=== PATIENT | female | born 1975 | race Caucasian/White ===

== ENCOUNTER 2020-03-17 10:46 | Outpatient (REF) | payer MEDICARE, MEDICAID, SELFPAY | END 2020-03-17 10:47 | disposition home or self-care (01) | LOC: HO.HAP 10:46 | PROVIDERS: PCP Internal Medicine; Visit Provider Internal Medicine | DX: Z46.1 Encounter for fitting and adjustment of hearing aid (principal) | CPT/HCPCS: 92593; V5266 ==

== ENCOUNTER 2020-09-02 09:26 | Outpatient (REF) | payer MEDICARE, MEDICAID, SELFPAY | END 2020-09-02 09:27 | disposition home or self-care (01) | LOC: HO.HAP 09:26 | PROVIDERS: Visit Provider Internal Medicine | DX: Z46.1 Encounter for fitting and adjustment of hearing aid (principal); H90.3 Sensorineural hearing loss, bilateral | CPT/HCPCS: 92593; 99499; V5266 ==

== ENCOUNTER 2020-09-05 09:50 | Outpatient (REF) | payer MEDICARE, MEDICAID, SELFPAY ==
--- NOTE | 2020-09-05 10:08 | MHC.AU.P13 ---
Hearing Instrument Problem Date of Visit: 09/05/20 Right Ear: Sql Database Administrator: Oticon Model: OPN 3 PP BTE Battery Size: 13 Tubing: #13 THICK Type of Mold: SHELL Left Ear: Sql Database Administrator: Oticon Model: OPN 3 PP BTE Battery Size: 13 Tubing: #13 THICK Type of Mold: SHELL Follow-Up Summary: Mother brought in hearing aids reporting right tubing too long. Trimmed right tubing and showed mother how to push up onto earhook. She will try with patient and call if any further problems. Recommendations: Recommendations: Hearing instrument follow-up or maintenance as needed. Signature: Provider: SHARA Calix
== END 2020-09-05 09:51 | disposition home or self-care (01) ==
LOC: HO.HAP 09:50
PROVIDERS: Visit Provider Internal Medicine
DX: Z13.89 Encounter for screening for other disorder (principal)

== ENCOUNTER 2020-11-15 11:53 | Outpatient (REF) | payer MEDICARE, MEDICAID, SELFPAY | END 2020-11-15 11:54 | disposition home or self-care (01) | LOC: HO.HAP 11:53 | PROVIDERS: Visit Provider Internal Medicine | DX: Z46.1 Encounter for fitting and adjustment of hearing aid (principal); H90.3 Sensorineural hearing loss, bilateral | CPT/HCPCS: 92593 ==

== ENCOUNTER 2020-11-24 14:17 | Outpatient (REF) | payer MEDICARE, MEDICAID, SELFPAY | END 2020-11-24 14:18 | disposition home or self-care (01) | LOC: HO.HAP 14:17 | PROVIDERS: Visit Provider Internal Medicine | DX: Z13.89 Encounter for screening for other disorder (principal) ==

== ENCOUNTER 2021-07-06 13:32 | Outpatient (REF) | payer MEDICARE, MEDICAID, SELFPAY | END 2021-07-06 13:33 | disposition home or self-care (01) | LOC: HO.HAP 13:32 | PROVIDERS: Visit Provider Internal Medicine | DX: Z46.1 Encounter for fitting and adjustment of hearing aid (principal); H90.3 Sensorineural hearing loss, bilateral | CPT/HCPCS: 92593 ==

== ENCOUNTER 2021-08-03 11:23 | Outpatient (REF) | payer SELFPAY | END 2021-08-03 11:24 | disposition home or self-care (01) | LOC: HO.HAP 11:23 | PROVIDERS: Visit Provider Internal Medicine | DX: Z46.1 Encounter for fitting and adjustment of hearing aid (principal); H90.3 Sensorineural hearing loss, bilateral | CPT/HCPCS: 92700 ==

== ENCOUNTER 2021-09-14 11:22 | Outpatient (REF) | payer MEDICARE, MEDICAID, SELFPAY | END 2021-09-14 11:23 | disposition home or self-care (01) | LOC: HO.HAP 11:22 | PROVIDERS: Visit Provider Internal Medicine | DX: Z46.1 Encounter for fitting and adjustment of hearing aid (principal); H90.3 Sensorineural hearing loss, bilateral | CPT/HCPCS: V5266 ==

== ENCOUNTER 2021-09-14 14:16 | Outpatient (REF) | payer SELFPAY | END 2021-09-14 14:17 | disposition home or self-care (01) | LOC: HO.HAP 14:16 | PROVIDERS: Visit Provider Internal Medicine | DX: Z46.1 Encounter for fitting and adjustment of hearing aid (principal) | CPT/HCPCS: 92700 ==

== ENCOUNTER 2021-10-26 11:12 | Outpatient (REF) | payer SELFPAY | END 2021-10-26 11:13 | disposition home or self-care (01) | LOC: HO.HAP 11:12 | PROVIDERS: Visit Provider Internal Medicine | DX: Z46.1 Encounter for fitting and adjustment of hearing aid (principal); H90.3 Sensorineural hearing loss, bilateral | CPT/HCPCS: 92700 ==

== ENCOUNTER 2021-12-07 11:21 | Outpatient (REF) | payer SELFPAY | END 2021-12-07 11:22 | disposition home or self-care (01) | LOC: HO.HAP 11:21 | PROVIDERS: Visit Provider Internal Medicine | DX: Z46.1 Encounter for fitting and adjustment of hearing aid (principal); H90.3 Sensorineural hearing loss, bilateral; H61.21 Impacted cerumen, right ear | CPT/HCPCS: 92700 ==

== ENCOUNTER 2022-01-09 11:57 | Outpatient (REF) | payer MEDICARE, MEDICAID, SELFPAY | END 2022-01-09 11:58 | disposition home or self-care (01) | LOC: HO.HAP 11:57 | PROVIDERS: Visit Provider Internal Medicine | DX: Z46.1 Encounter for fitting and adjustment of hearing aid (principal); H90.3 Sensorineural hearing loss, bilateral | CPT/HCPCS: 92593 ==

== ENCOUNTER 2022-02-06 09:51 | Outpatient (REF) | payer SELFPAY | END 2022-02-06 09:52 | disposition home or self-care (01) | LOC: HO.HAP 09:51 | PROVIDERS: Visit Provider Internal Medicine | DX: Z46.1 Encounter for fitting and adjustment of hearing aid (principal); H90.3 Sensorineural hearing loss, bilateral; H61.21 Impacted cerumen, right ear | CPT/HCPCS: 92700 ==

== ENCOUNTER 2022-02-06 10:49 | Outpatient (REF) | payer MEDICARE, MEDICAID, SELFPAY | END 2022-02-06 10:50 | disposition home or self-care (01) | LOC: HO.HAP 10:49 | PROVIDERS: Visit Provider Internal Medicine | DX: Z46.1 Encounter for fitting and adjustment of hearing aid (principal); H90.3 Sensorineural hearing loss, bilateral | CPT/HCPCS: V5014 ==

== ENCOUNTER 2022-03-23 09:50 | Outpatient (REF) | payer SELFPAY | END 2022-03-23 09:51 | disposition home or self-care (01) | LOC: HO.HAP 09:50 | PROVIDERS: Visit Provider Internal Medicine | DX: Z13.89 Encounter for screening for other disorder (principal) | CPT/HCPCS: 92593; 92700 ==

== ENCOUNTER 2022-06-08 13:56 | Outpatient (REF) | payer MEDICARE, MEDICAID, SELFPAY ==
--- NOTE | 2022-06-08 14:56 | MHC.AU.HA3 ---
Hearing Instrument Follow-Up- Binaural Date of Visit: 06/08/22 Right Ear: Make, Model, Color, Serial Number: Oticon OPN 3 PP BTE SN: [id number] Color: Terracotta Deckhand Shrimp Boat Repair Warranty: 02/08/2023 Deckhand Shrimp Boat Loss and Damage Warranty: 03/13/2021 Battery Size: 13 Earmold/Dome/CShell/SlimTip:Westone acrylic shell molds Dispensed By: [facility] Date of Fittin03/10/2019 Left Ear: Make, Model, Color, Serial Number: Oticon OPN 3 PP BTE SN: [id number] Color: Terracotta Deckhand Shrimp Boat Repair Warranty: 03/13/2021 Deckhand Shrimp Boat Loss and Damage Warranty: 03/13/2021 Battery Size: 13 Earmold/Dome/CShell/SlimTip: Westone acrylic shell molds Dispensed By: [facility] Date of Fittin03/10/2019 Follow-Up Summary: Thais recently had surgery for a pacemaker and a stent at [facility]. She was discharged last week. During her stay at the hospital, the hospital staff reportedly lost her right hearing aid and ear mold. Her left hearing aid and ear mold needed a tubing change and has excessive feedback. Cleaned left hearing aid and ear mold and replaced tubing. Ran feedback manager enterprise. Since replacement warranty has and hearing aids are less than five years old, explained the process for obtaining new hearing aids (i.e., new hearing test, medical clearance, prior approval). Thais's mother reported that she has an appointment with her PCP next week and she will request an order for the hearing test to begin the process. Recommendations: Obtain PCP order for hearing test to begin the process for new hearing aids. Diagnosis Code(s):Primary Diagnosis: H90.A21 SNHL, Unilateral Right Ear, W/Restricted Contralateral Hearing Secondary Diagnosis: H90.A32 Mixed HL, Unilateral, Left Ear, W/Restricted Contralateral Signature: Provider: Michela Kuhn, [facility]
== END 2022-06-08 13:57 | disposition home or self-care (01) ==
LOC: HO.HAP 13:56
PROVIDERS: Visit Provider Internal Medicine
DX: Z46.1 Encounter for fitting and adjustment of hearing aid (principal); H90.A21 Sensorineural hearing loss, unilateral, right ear, with restricted hearing on the contralateral side
CPT/HCPCS: 92592

== ENCOUNTER 2022-06-26 09:55 | Outpatient (REF) | payer MEDICARE, MEDICAID, SELFPAY ==
--- NOTE | 2022-06-26 12:41 | MHC.AU.MED ---
Medical Clearance for Hearing Instrumentation Date: 06/26/22 Patient Name: Thais Kincaid Date of : 1975 Primary Care Provider: Referring Provider: Mechelle Ortega MD We have seen your patient on 06/26/22 and have determined that they are a candidate for amplification (See accompanying report). Specifically, they would benefit from: Hearing aid use in both ears There is a statute that addresses Medical Evaluation Requirements prior to fitting a patient with a hearing aid. According to [place] statute 265 CMR:6.03(1), (a) General. Except as provided in 265 CMR 6.03(1)(b), a hearing aid specialist shall not sell a hearing aid unless the prospective user has presented to the hearing aid specialist a written statement signed by a licensed physician that states that the patient's hearing loss has been medically evaluated and the patient may be considered a candidate for a hearing aid. The medical evaluation must have taken place within the preceding six months. Please note: Due to the [place] Statute referenced above, we cannot accept a signature other than that of a licensed physician. BLOWER FEEDER DYED RAW STOCK and PA signatures cannot be accepted. I am in agreement with the above recommendation. There is no medical contraindication for hearing instrumentation. Physician Signature Date Physician Name (Printed)
== END 2022-06-26 09:56 | disposition home or self-care (01) ==
LOC: HO.SH 09:55
PROVIDERS: Visit Provider Internal Medicine
DX: Z01.118 Encounter for examination of ears and hearing with other abnormal findings (principal); H90.3 Sensorineural hearing loss, bilateral; H61.23 Impacted cerumen, bilateral
CPT/HCPCS: 92557; V5275

== ENCOUNTER 2022-06-26 09:59 | Outpatient (REF) | payer SELFPAY | END 2022-06-26 10:00 | disposition home or self-care (01) | LOC: HO.HAP 09:59 | PROVIDERS: Visit Provider Internal Medicine | DX: Z46.1 Encounter for fitting and adjustment of hearing aid (principal); H90.3 Sensorineural hearing loss, bilateral; H61.23 Impacted cerumen, bilateral | CPT/HCPCS: 92700 ==

== ENCOUNTER 2022-07-27 10:49 | Outpatient (REF) | payer MEDICARE, MEDICAID, SELFPAY ==
--- NOTE | 2022-07-27 12:04 | MHC.AU.HA5 ---
Hearing Instrument Fitting- Adult- Right Ear Date of Visit: 07/27/22 Hearing Instruments Dispensed: Right Ear: Make, Model, Color, Serial Number: Oticon OPN S 3 Power Plus BTE Gerry Serial #[id number] Concrete Mixer Repair Warranty: 08/16/2025 Concrete Mixer Loss and Damage Warranty: 08/16/2025 [facility] Service Plan: 07/27/2023 Battery Size: 13 Earmold/Dome/CShell/SlimTip: Microsonic acrylic shell remake warranty 01/21/2023 Summary of Fitting: Obtained prior authorization from [facility] for replacement of the right aid lost while in [facility]. The model of the hearing aid is different than the left aid as Oticon has discontinued purchase of new OPN BTEs so has to change to OPN S 3 BTE model. Ran Real Ear measurements at adaptation level #3 making adjustments to better match targets. Low frequency gain is much higher than expected and the gain int KOALA.CH software was already defaulted to 0 gain. able to match 7291-4308 Hz much better. Patient reports the sound quality seems similar to the left aid while in office. Activated volume control if needed. THE TUBING OF THE NEW RIGHT MOLD CONTINUALLY CAME OUT OF THE EARMOLD. AFTER THE SECOND TIME OCCURING, I CHANGED TO 13 TT TUBING AND PLACED THE RIGHT MOLD IN AND OUT OF THE EAR AT LEAST 10 TIMES TO MAKE SURE THE TUBING WOULD STAY SECURELY. IF THE TUBING COMES OUT AGAIN, RECOMMEND CHANGING TO A SOFT MATERIAL MOLD. If patient wants both molds to be the same material, will have to take new impression of the left ear. F/U scheduled for in August and mother will call if any problems before that time. Diagnosis Code(s): Primary Diagnosis: H90.3 Bilateral Sensorineural Hearing Loss Signature: Provider: Michela Duran, [facility]
== END 2022-07-27 10:50 | disposition home or self-care (01) ==
LOC: HO.HAP 10:49
PROVIDERS: Visit Provider Internal Medicine
DX: Z46.1 Encounter for fitting and adjustment of hearing aid (principal); H90.3 Sensorineural hearing loss, bilateral
CPT/HCPCS: V5011; V5020; V5241; V5257; V5264

== ENCOUNTER 2022-10-08 10:38 | Outpatient (REF) | payer MEDICARE, MEDICAID, SELFPAY | END 2022-10-08 10:39 | disposition home or self-care (01) | LOC: HO.HAP 10:38 | PROVIDERS: Visit Provider Internal Medicine | DX: Z13.89 Encounter for screening for other disorder (principal) ==

== ENCOUNTER 2023-01-17 11:20 | Outpatient (REF) | payer MEDICARE, MEDICAID, SELFPAY | END 2023-01-17 11:21 | disposition home or self-care (01) | LOC: HO.HAP 11:20 | PROVIDERS: Visit Provider Internal Medicine | DX: Z46.1 Encounter for fitting and adjustment of hearing aid (principal); H90.3 Sensorineural hearing loss, bilateral | CPT/HCPCS: V5266 ==

== ENCOUNTER 2023-04-19 15:33 | Outpatient (REF) | payer MEDICARE, MEDICAID, SELFPAY | END 2023-04-19 15:34 | disposition home or self-care (01) | LOC: HO.HAP 15:33 | PROVIDERS: Visit Provider Internal Medicine | DX: Z13.89 Encounter for screening for other disorder (principal) ==

== ENCOUNTER 2023-06-05 11:18 | Outpatient (REF) | payer MEDICARE, MEDICAID, SELFPAY | END 2023-06-05 11:19 | disposition home or self-care (01) | LOC: HO.HAP 11:18 | PROVIDERS: Visit Provider Internal Medicine | DX: Z13.89 Encounter for screening for other disorder (principal) ==

== ENCOUNTER 2023-08-19 13:55 | Outpatient (REF) | payer MEDICARE, MEDICAID, SELFPAY | END 2023-08-19 13:56 | disposition home or self-care (01) | LOC: HO.HAP 13:55 | PROVIDERS: Visit Provider Internal Medicine | DX: Z46.1 Encounter for fitting and adjustment of hearing aid (principal); H90.3 Sensorineural hearing loss, bilateral | CPT/HCPCS: 92593; 99499; V5266 ==

== ENCOUNTER 2023-11-21 13:51 | Outpatient (REF) | payer MEDICARE, MEDICAID, SELFPAY ==
--- NOTE | 2023-11-21 14:24 | MHC.AU.HA3 ---
Hearing Instrument Follow-Up- Binaural Date of Visit: 11/21/23 Right Ear: Make, Model, Color, Serial Number: Heidi OPNS3 BTE PP SN: [id number] Color: Terracotta Market Research Specialist Repair Warranty: 08/16/2025 Market Research Specialist Loss and Damage Warranty: 08/16/2025 [facility] Service Plan: 07/27/2023 Battery Size: 13 Earmold/Dome/CShell/SlimTip:Microsonic acrylic shell Dispensed By: [facility] Date of Fittin07/27/2023 Left Ear: Make, Model, Color, Serial Number: Heidi OPN3 BTE PP SN: [id number] Color: Terracotta Market Research Specialist Repair Warranty: 03/13/2021 Market Research Specialist Loss and Damage Warranty: 03/13/2021 [facility] Service Plan: Battery Size: 13 Earmold/Dome/CShell/SlimTip: Westone acrylic shell mold Dispensed By: [facility] Date of Fittin03/10/2019 Follow-Up Summary: Tubing hard, discolored, full of wax/debris. Cleaned both hearing aids and ear molds. Vacuumed microphones. Ran through dehumidifier. Replaced tubing. Listening check demonstrated hearing aids amplifying clearly. Thais's mother suspects a change in hearing, as she has noticed that Thais is not hearing as well on one side (unsure which) even with her hearing aids. She will request a doctor's order for an updated hearing test. Recommendations: Hearing instrument follow-up or maintenance as needed. Please contact our clinic with any questions or concerns. Diagnosis Code(s): Primary Diagnosis: H90.3 Bilateral Sensorineural Hearing Loss Signature: Provider: Michela Kuhn, [facility]
== END 2023-11-21 13:52 | disposition home or self-care (01) ==
LOC: HO.HAP 13:51
PROVIDERS: Visit Provider Internal Medicine
DX: Z46.1 Encounter for fitting and adjustment of hearing aid (principal); H90.3 Sensorineural hearing loss, bilateral
CPT/HCPCS: 92593; 99499

== ENCOUNTER 2024-01-02 12:58 | Outpatient (REF) | payer MEDICARE, MEDICAID, SELFPAY ==
--- NOTE | 2024-01-02 13:43 | MHC.AU.HA3 ---
Hearing Instrument Follow-Up- Binaural Date of Visit: 01/02/24 Right Ear: Make, Model, Color, Serial Number: Heidi OPNS3 BTE PP SN: [id number] Color: Terracotta Sql Database Administrator Repair Warranty: 08/16/2025 Sql Database Administrator Loss and Damage Warranty: 08/16/2025 [facility] Service Plan: 07/27/2023 Battery Size: 13 Earmold/Dome/CShell/SlimTip:Microsonic acrylic shell Dispensed By: [facility] Date of Fittin07/27/2023 Left Ear: Make, Model, Color, Serial Number: Heidi OPN3 BTE PP SN: [id number] Color: Terracotta Sql Database Administrator Repair Warranty: 03/13/2021 Sql Database Administrator Loss and Damage Warranty: 03/13/2021 [facility] Service Plan: Battery Size: 13 Earmold/Dome/CShell/SlimTip: Westone acrylic shell mold Dispensed By: [facility] Date of Fittin03/10/2019 Follow-Up Summary: Tubing pulled out of molds. Cleaned both hearing aids and ear molds. Vacuumed microphones. Ran through dehumidifier. Replaced tubing with small amount of cement. Hearing test scheduled in February - will start process for new hearing aids and ear molds at that time. Discussed changing to softer ear mold material to be able to use a tube lock given history of tubing getting pulled out of molds. Recommendations: Hearing instrument follow-up or maintenance as needed. Please contact our clinic with any questions or concerns. Diagnosis Code(s): Primary Diagnosis: H90.3 Bilateral Sensorineural Hearing Loss Signature: Provider: Michela Kuhn, [facility]
== END 2024-01-02 12:59 | disposition home or self-care (01) ==
LOC: HO.HAP 12:58
PROVIDERS: Visit Provider Internal Medicine
DX: Z46.1 Encounter for fitting and adjustment of hearing aid (principal); H90.3 Sensorineural hearing loss, bilateral
CPT/HCPCS: 92593; 99499

== ENCOUNTER 2024-02-20 14:23 | Outpatient (REF) | payer MEDICARE, MEDICAID, SELFPAY ==
--- NOTE | 2024-02-20 15:24 | MHC.AU.HA3 ---
Hearing Instrument Follow-Up- Binaural Date of Visit: 02/20/24 Right Ear: Make, Model, Color, Serial Number: Heidi OPNS3 BTE PP SN: [id number] Color: Terracotta Opto Mechanical Technician Repair Warranty: 08/16/2025 Opto Mechanical Technician Loss and Damage Warranty: 08/16/2025 [facility] Service Plan: 07/27/2023 Battery Size: 13 Earmold/Dome/CShell/SlimTip:Microsonic acrylic shell Dispensed By: [facility] Date of Fittin07/27/2023 Left Ear: Make, Model, Color, Serial Number: Heidi OPN3 BTE PP SN: [id number] Color: Terracotta Opto Mechanical Technician Repair Warranty: 03/13/2021 Opto Mechanical Technician Loss and Damage Warranty: 03/13/2021 [facility] Service Plan: Battery Size: 13 Earmold/Dome/CShell/SlimTip: Westone acrylic shell mold Dispensed By: [facility] Date of Fittin03/10/2019 Follow-Up Summary: Accompanied by mother. Updated hearing test - see audio. Right hearing aid reportedly weak. Tubing pulled out of molds, again. Cleaned both hearing aids and ear molds. Vacuumed microphones. Ran through dehumidifier. Replaced tubing. Listening check demonstrated hearing aids amplifying clearly. Hearing relatively stable; however, decrease noted in speech discrimination. Reprogrammed right hearing aid with noted improvement of sound quality in office. Starting process for new hearing aids and ear molds - See Hearing Aid Evaluation note. Recommendations: Hearing instrument follow-up or maintenance as needed. Please contact our clinic with any questions or concerns. Diagnosis Code(s): Primary Diagnosis: H90.3 Bilateral Sensorineural Hearing Loss Signature: Provider: Michela Kuhn, [facility]
--- NOTE | 2024-02-20 15:25 | MHC.AU.MED ---
Medical Clearance for Hearing Instrumentation Date: 02/20/24 Patient Name: Thais Kincaid Date of : 1975 Primary Care Provider: Mechelle Ortega MD We have seen your patient on 02/20/24 and have determined that they are a candidate for amplification (See accompanying report). Specifically, they would benefit from: Hearing aid use in both ears There is a statute that addresses Medical Evaluation Requirements prior to fitting a patient with a hearing aid. According to [place] statute 265 CMR:6.03(1), (a) General. Except as provided in 265 CMR 6.03(1)(b), a customer service professional shall not sell a hearing aid unless the prospective user has presented to the customer service professional a written statement signed by a licensed physician that states that the patient's hearing loss has been medically evaluated and the patient may be considered a candidate for a hearing aid. The medical evaluation must have taken place within the preceding six months. Please note: Due to the [place] Statute referenced above, we cannot accept a signature other than that of a licensed physician. GREENHOUSE INSTRUCTOR and PA signatures cannot be accepted. I am in agreement with the above recommendation. There is no medical contraindication for hearing instrumentation. Physician Signature Date Physician Name (Printed)
--- NOTE | 2024-02-20 16:06 | MHC.AU.HA1 ---
Hearing Aid Evaluation Date of Visit: 02/20/24 Historical Information: Description of Hearing: Moderate to moderately-severe sensorineural hearing loss, bilaterally Current personal amplification information: Oticon OPNS3 BTE PP, right ear; Oticon OPN3 BTE PP, left ear Summary: Accompanied by mother. Ready for new hearing aids due to age of left device. Right hearing aid purchased in 2022 after it was lost during hospital stay (could not purchase same model as left ear at that time). Will also request prior authorization for new right hearing aid as well so Thais can have same model for both ears. Will stay with same BTE style. Discussed rechargeability vs battery-powered, 312 (Real, smaller BTE portion) vs 13 (Xceed, larger BTE portion) batteries. Opted to continue with size 13 battery-powered, knowing BTE portion of hearing aid will be slightly bigger than current pair. Impressions taken, bilaterally, without incident (in hold drawer). Thais was agreeable to trying softer silicone material with tube lock to prevent tubing from always slipping out of molds as is the case with her current pair. Will need to submit prior authorization as right hearing aid not five years old. Hearing Aid Prescription: Based on the individual?s shared listening needs, communication environments, dexterity, desire for connectivity, and personal preferences, the following prescription for amplification has been made: Right ear: Make, Model, Color: Oticon Xceed 2 BTE SP Color: Silver Battery Size: 13 Type of Earmold/Dome/CShell/SlimTip: Gigi Full Shell 40 Shore Silicone Left ear: Left ear prescription to be same as Right Hearing Aid above: Make, Model, Color: Oticon Xceed 2 BTE SP Color: Silver Battery Size: 13 Type of Earmold/Dome/CShell/SlimTip: Gigi Full Shell 40 Shore Silicone Plan of Care: Patient wishes to purchase hearing aids as prescribed Action Taken/Action Needed: Prior authorization to be requested. Medical Clearance to be requested from PCP/ENT. Hearing Instrument Fitting to be scheduled when materials arrive Primary Diagnosis: H90.3 Bilateral Sensorineural Hearing Loss Signature: Provider: Michela Kuhn, [facility]
== END 2024-02-20 14:24 | disposition home or self-care (01) ==
LOC: HO.SH 14:23
PROVIDERS: Visit Provider Internal Medicine
DX: Z01.118 Encounter for examination of ears and hearing with other abnormal findings (principal); Z46.1 Encounter for fitting and adjustment of hearing aid; H90.3 Sensorineural hearing loss, bilateral
CPT/HCPCS: 92557; 92591; 92593; 99499; V5275

== ENCOUNTER 2024-03-27 13:48 | Outpatient (REF) | payer MEDICARE, MEDICAID, SELFPAY | END 2024-03-27 13:49 | disposition home or self-care (01) | LOC: HO.HAP 13:48 | PROVIDERS: Visit Provider Internal Medicine | DX: Z46.1 Encounter for fitting and adjustment of hearing aid (principal); H90.3 Sensorineural hearing loss, bilateral | CPT/HCPCS: V5011; V5020; V5160; V5261; V5264; V5266 ==

== ENCOUNTER 2024-06-22 12:58 | Outpatient (REF) | payer MEDICARE, MEDICAID, SELFPAY ==
--- OUTSIDE RECORDS SUMMARY | 2024-06-22 15:03 | XMS_ITS | Data Portability ---
Author Organization [place] - [facility], Allergy Address [address] [place] [address] Care Team Providers Care Project Controls Scheduler Name Role Phone SAMI THOMASON Primary Care Provider Assessment Encounter Date Assessment Date Assessment LastModified by Organization Details LastModified Time 11/21/2023 11/21/2023 48-year-old female with history of chronic OE, recurrent cerumen impactions, and hearing loss using amplification presents for routine ear cleaning. Cerumen impaction removed bilaterally. No evidence of infection on exam today. She will follow up in 6 weeks for routine debridement, or sooner with concerns. [email or web address] Not available 11/21/2023 11:37:29 01/02/2024 01/02/2024 48-year-old female with history of chronic OE, recurrent cerumen impactions, and hearing loss using amplification presents for routine ear cleaning. Cerumen impaction and otorrhea removed bilaterally. There is evidence of mild otitis externa on exam today. She will begin use of TobraDex 4 drops in both ears twice daily for 2 weeks (has Rx from prior infection). She will follow-up in 6 weeks for routine debridement, or sooner with any worsening symptoms. [email or web address] Not available 01/02/2024 12:55:48 02/06/2024 02/06/2024 48-year-old female with history of chronic OE, recurrent cerumen impactions, and hearing loss using amplification presents for routine ear cleaning. Cerumen impaction removed bilaterally. Infection has resolved. Resume alcohol/vinegar mixture in ears a few times per week. She will follow-up in 6 weeks for routine debridement, or sooner with any worsening symptoms. [email or web address] Not available 02/06/2024 15:55:49 03/12/2024 03/12/2024 49-year-old female with history of chronic OE, recurrent cerumen impactions, and hearing loss using amplification presents for routine ear cleaning. Cerumen impaction removed bilaterally. Both EACs with wet appearance. Recommended Tobradex x 2 weeks and then she may resume alcohol/vinegar mixture in ears a few times per week. She will follow-up in 6 weeks for routine debridement, or sooner with any worsening symptoms. [email or web address] Not available 03/12/2024 11:57:01 04/23/2024 04/23/2024 49-year-old female with history of chronic OE, recurrent cerumen impactions, and hearing loss using amplification presents for routine ear cleaning. The infection has resolved. Cerumen impaction removed bilaterally. Otologic exam is stable. She will follow-up in 6 weeks for routine debridement, or sooner with any worsening symptoms. [email or web address] Not available 04/23/2024 11:06:14 Plan of Treatment Reminders Order Date Submit Date Provider Last Modified By Organization Details Last Modified Time Details Appointments Urgent Visit Est 15 2024 03:00P M BERNICE SPEARS PA-C Not available Not available Not available Establish ed 15 2024 11:30A M BERNICE SPEARS PA-C Not available Not available Not available Establish ed 15 2024 11:15A M BERNICE SPEARS PA-C Not available Not available Not available Lab None recorded. Referral None recorded. Procedures None recorded. Surgeries None recorded. Imaging None recorded. Medication Orders TobraDex 0.3 %-0.1 % eye drops,isreal pension 2023 024 [facility] #[id number], [address] [facility], [place], [address], 03/12/2024 11:55:33 Patient TargetsNo targets recorded. Patient InstructionsNo instructions recorded. Reason for Referral None Reported. Results Created Date Observation Date Name Description Value Unit Range Abnormal Flag Note LastModifiedBy Organization Detail LastModifiedTime 02/05/20 24 12/05/2018 imagi ng/di agnos tic resul t No observ ation record ed. [email or web address] Not Available 00:58:53 02/05/20 24 12/05/2018 imagi ng/di gerardo tic resul t No observ ation record ed. [email or web address] Not Available 00:59:02 02/05/20 24 12/05/2018 audio gram No observ ation record ed. [email or web address] Not Available 01:02:47 Result Notes None recorded. Problems Name Problem SNOMED Code Status Onset Date Resolution Date Notes Provider Name and Address Organization Details Recorded Time Otorrhea of right ear 53417624624 19677 Active 2022 Otorrhea , right ear; Note: Date Diagnose d: 3 11:49 AM (H92.13) Not Available [facility] 4 02:53:46 Mixed conducti ve and sensorin eural hearing loss, bilatera l 172552627 Active 2014 Mixed hearing loss, bilatera l; Note: Date Diagnose d: 5 12:14 PM (389.22) Mixed conducti ve and sensorin eural hearing loss, bilatera l; Note: Date Diagnose d: 5 12:14 PM (H90.6) [mapped from ICD9 code: 389.22] Not Available [facility] 4 02:53:46 Sensorin eural hearing loss in right ear 42467552531 100 Active 2018 Sensorin eural hearing loss, unilater al, right ear, with restrict ed hearing on the contrala teral side; Note: Date Diagnose d: 9 4:51 PM (H90.A21 ) Not Available [facility] 4 02:53:45 Bilatera l diffuse otitis externa 98052528471 83784 Completed 201801/17/2024 Diffuse otitis externa, bilatera l; Note: Date Diagnose d: 11/20/2018 2:38 PM (H60.313 ) BERNICE SPEARS PA-C [address] [place] [address],[facility] [address], [place], [address] , [facility] - [facility] 4 15:19:29 Candidal otitis externa 20082084 Active 2014 Candidia sis: Candidal otitis externa; Note: Date Diagnose d: 5 12:14 PM (112.82) [mapped from ICD9 code: 389.22] Candid al otitis externa; Note: Date Diagnose d: 5 12:15 PM (B37.84) [mapped from ICD9 code: 112.82] Not Available [facility] 4 02:53:44 Impacted cerumen of bilatera l ears 66764104426 93499 Active 2014 Impacted cerumen, bilatera l; Note: Date Diagnose d: 5 2:31 PM (H61.23) [mapped from ICD9 code: 380.4] Not Available [facility] 4 02:53:46 Otorrhea of bilatera l ears 97033142087 49309 Completed 202101/17/2024 Otorrhea , bilatera l; Note: Date Diagnose d: 03/27/20 3:43 PM (H92.13) Not Available [facility] 4 02:53:48 Impacted cerumen 79244061 Active 2014 Impacted cerumen; CMS Risk: low risk CMS Treatmen t: new problem (to examiner ): no addition al workup planned Not Available [facility] 4 02:53:45 Impacted cerumen in left ear 80013050951 49070 Active 2019 Impacted cerumen, left ear; Note: Date Diagnose d: 11/17/2019 1:33 PM (H61.22) Not Available [facility] 4 02:53:44 Chronic mycotic otitis externa 033723130 Active 2014 Chronic mycotic otitis externa; Note: Date Diagnose d: 5 2:29 PM (380.15) Not Available [facility] 4 02:53:43 Diffuse otitis externa 08246760 Active 2019 Diffuse otitis externa, right ear; Note: Date Diagnose d: 11/17/2019 1:33 PM (H60.311 ) ; Start Date : 11/17/19 20 Diffu se otitis externa, left ear; Note: Date Diagnose d: 12/22/2019 1:58 PM (H60.312 ) Not Available [facility] 4 02:53:47 Impacted cerumen in right ear 25652293501 49466 Active 2022 Impacted cerumen, right ear; Note: Date Diagnose d: 3 1:57 PM (H61.21) Not Available [facility] 4 02:53:45 Mixed conducti ve and sensorin eural hearing loss of left ear 73153371785 107 Active 2018 Mixed conducti ve and sensorin eural hearing loss, unilater al, left ear with restrict ed hearing on the contrala teral side; Note: Date Diagnose d: 9 4:51 PM (H90.A32 ) Not Available [facility] 4 02:53:47 Bilatera l diffuse otitis externa 85340141650 83873 Active 2023 Diffuse otitis externa, bilatera l; Note: Date Diagnose d: 11/20/2018 2:38 PM (H60.313 ) BERNICE SPEARS PA-C [address] [place] [address],[address], [address] , [facility] - [facility] 4 15:19:29 Problem Notes None recorded. Procedures Surgical History Date Name Laterality Status Provider Name and Address Organization Details Recorded Time 4 Cerumen removal without microscope bilat completed BERNICE SPEARS PA-C [address] [place] [address],[address], [address], [facility] - [facility] 04/23/2024 11:04:35 4 Cerumen removal without microscope bilat completed BERNICE SPEARS PA-C [address] [place] [address],[address], [address], [facility] - [facility] 03/12/2024 11:07:32 4 Cerumen removal without microscope bilat completed BERNICE SPEARS PA-C [address] [place] [address],[address] [place], [address], [facility] - [facility] 02/06/2024 15:55:18 4 Cerumen removal without microscope bilat completed BERNICE SPEARS PA-C [address] [facility] [place],[address], [place], [address], [facility] - [facility] 01/02/2024 12:54:36 4 Cerumen removal without microscope bilat completed BERNICE SPEARS PA-C [address] [facility],[address], [place], [address], [facility] - [facility] 11/21/2023 11:16:14 Imaging Results Imaging Date Name Status LastModified by Organiz ation Details LastModified Time 12/05/2018 imaging/diagno stic result completed [email or web address] Information not available 02/05/2024 00:58:53 12/05/2018 imaging/diagno stic result completed Information not available 02/05/2024 00:59:02 12/05/2018 audiogram completed Information not available 02/05/2024 01:02:47 Procedure Notes None recorded. Medical Equipment None Reported. Allergies Allergen ID Allergen Name Allergen Category Reaction Reaction Severity Criticality Documentation Date Start Date Code Code System Note Provider Name and Address Organization Details Recorded Time [id number] penicilli n V potassium medicatio n other Not available Not available 10/29/202344247 5 RxNorm React ion: unkno wn, unspe cifie d;; Not Available [facility] 4 01:15:41 Medications Name Sig Start Date Stop Date Status Note LastModified by Organization Details LastModified Time atorvasta tin 80 mg tablet TAKE 1 TABLET BY MOUTH EVERYDAY AT BEDTIME active Not Available Not Available No t Available carvedilo l 6.25 mg tablet TAKE 1 TABLET BY MOUTH TWICE A DAY WITH MEALS active Not Available Not Available No t Available lisinopri l 20 mg tablet 09/12 completed Medicati on ID: [id number] Du ration Value: 30 Brand Name: lisinopr il Send Method: E-Prescr ibed Sub s Allowed: subs OK Speci al Instruct ion: TAKE 1 TABLET BY MOUTH EVERY DAY Medi cationGe nericNam e: lisinopr il Not Available Not Available Not Available Ciloxan 0.3 % eye drops 03/08 completed Medicati on ID: [id number] Pr escribed By Name: NUBIA Sweet nd Name: Ciloxan Send Method: E-Prescr ibed Sub s Allowed: subs OK Speci al Instruct ion: Instill 4 drops twice a day into affected ear for 7 days Med icationG enericNa me: Ciloxan Not Available Not Available Not Available spironola ctone 25 mg tablet TAKE 1 TABLET BY MOUTH EVERY DAY active Not Available Not Available No t Available carvedilo l 3.125 mg tablet PLEASE SEE ATTACHED FOR DETAILED DIRECTIO NS active Not Available Not Available No t Available levothyro xine 100 mcg tablet TAKE 1 TABLET BY MOUTH EVERY DAY active Not Available Not Available No t Available levothyro xine 88 mcg tablet 2020 active Medicati on ID: [id number] B rand Name: levothyr oxine Se nd Method: E-Prescr ibed Sub s Allowed: subs OK Medic [facility] ericName : levothyr oxine Not Available Not Available Not Available sulfaceta mide sodium 10 % eye drops 2020 active Medicati on ID: [id number] D uration Value: 14 Brand Name: sulfacet amide sodium S end Method: E-Prescr ibed Sub s Allowed: subs OK Speci al Instruct ion: 4 drops to affected ear BID x 14 days Med icationG enericNa me: sulfacet amide sodium Not Available Not Available Not Available levothyro xine 50 mcg tablet 11/19 completed Medicati on ID: [id number] Du ration Value: 30 Reason: () Brand Name: levothyr oxine Se nd Method: E-Prescr ibed Sub s Allowed: subs OK Speci al Instruct ion: TAKE 1 TABLET BY MOUTH EVERY DAY Medi cationGe nericNam e: levothyr oxine Not Available Not Available Not Available simvastat in 20 mg tablet 09/12 completed Medicati on ID: [id number] D uration Value: 30 Brand Name: simvasta tin Send Method: E-Prescr ibed Sub s Allowed: subs OK Speci al Instruct ion: TAKE 1 TABLET BY MOUTH EVERY DAY Medi cationGe nericNam e: simvasta tin Not Available Not Available Not Available erythromy bogdan 5 mg/gram (0.5 %) eye ointment APPLY TO EYELID MARGIN OF BOTH EYES AT BEDTIME FOR 1 WEEK active Not Available Not Available No t Available clotrimaz ole-betam ethasone 1 %-0.05 % topical cream Apply 1 a small amount twice a day 2022 active Medicati on ID: [id number] D uration Value: 14 Brand Name: clotrima zole-bet amethaso ne Send Method: E-Prescr ibed Sub s Allowed: subs OK Speci al Instruct ion: Apply with fingerti p to external ear BID x 2 weeks Me dication GenericN minda: clotrima zole-bet amethaso ne Not Available Not Available Not Available polymyxin B sulfate 10,000 unit-trim ethoprim 1 mg/mL eye drops INSTILL 1 DROP INTO LEFT EYE BY OPHTHALM IC ROUTE EVERY 6 HOURS FOR 7 DAYS 03/12 completed Not Available Not Available Not Available clotrimaz ole 1 % topical solution APPLY 4 DROPS INTO THE AFFECTED EAR TWICE A DAY X 2 WEEKS active Not Available Not Available No t Available tobramyci n 0.3 %-dexamet hasone 0.1 % eye drops,isreal pension INSTILL 4 DROPS INTO BOTH EARS TWICE A DAY FOR 14 DAYS active Not Available Not Available No t Available azithromy bogdan 500 mg tablet TAKE 1 TABLET BY MOUTH ONCE FOR 1 DOSE. TAKE 30-60MIN PRIOR TO DENTAL PROCEDUR E active Not Available Not Available No t Available moxifloxa bogdan 0.5 % eye drops INSTILL ONE DROP INTO THE RIGHTY EYE 3 TIMES A DAY active Not Available Not Available No t Available Ciprodex 0.3 %-0.1 % ear drops,isreal pension Apply 4 drop into both ears twice a day 2023 active Medicati on ID: [id number] D uration Value: 14 Brand Name: Ciprodex Send Method: E-Prescr ibed Sub s Allowed: subs OK Medic ationGen ericName : Ciprodex Not Available Not Available Not Available Brilinta 90 mg tablet TAKE 1 TABLET BY MOUTH TWICE A DAY active Not Available Not Available No t Available Farxiga 10 mg tablet TAKE 1 TABLET BY MOUTH EVERY DAY active Not Available Not Available No t Available Entresto 97 mg-103 mg tablet TAKE 1 TABLET BY MOUTH TWICE A DAY active Not Available Not Available No t Available Entresto 24 mg-26 mg tablet TAKE 1 TABLET BY MOUTH TWICE A DAY active Not Available Not Available No t Available Vitals Date Recorded Body height Body mass index (BMI) Body weight Provider Name and Address Organization Details Last Updated DateTime 01/02/2024 144.78 cm 27 kg/m2 95933.05 g Emily Mendoza [facility] 01/02/2024 11:08:50 Date Recorded Body height Body mass index (BMI) Body weight Provider Name and Address Organization Details Last Updated DateTime 02/06/2024 144.78 cm 27 kg/m2 13706.05 g Emily Mendoza [facility] 02/06/2024 15:07:39 Date Recorded Body height Body mass index (BMI) Body weight Provider Name and Address Organization Details Last Updated DateTime 03/12/2024 144.78 cm 27 kg/m2 25590.05 g Terrance Dennis [facility] 03/12/2024 11:28:56 Date Recorded Body height Body mass index (BMI) Body weight Provider Name and Address Organization Details Last Updated DateTime 11/21/2023 144.78 cm 27 kg/m2 00525.05 g Raina Gutierres [facility] 11/21/2023 11:43:44 Social History None recorded. Functional Status None recorded. Mental Status None recorded. Family History Nothing Reported. Medical History No medical history recorded. Gynecological HistoryNo gynecological history recorded. Obstetrics History GPAL:G 0 P 0 0 0 0 Past Encounters Encounter ID Performer Location Encounter Start Date Encounter Closed Date Diagnosis/Indication Diagnosis SNOMED-CT Code Diagnosis ICD10 Code Diagnosis Note [id number] MIRI CONTRERAS MD [facility] [address] [address] 11/21/2023 11:07:48 11/21/2023 11:40:06 Impacted cerumen of bilateral ears 5711249224 499073 H61.23 [id number] MIRI CONTRERAS MD [facility] [place] [address] [place] [address] 01/02/2024 11:03:40 01/02/2024 11:36:55 Bilateral diffuse otitis externa 4197172029 963241 H60.313 Impacted c erumen of bilateral ears 1441935425 329109 H61.23 [id number] JAKE GRANADOS MD [facility] [address] [address] 02/06/2024 14:53:34 02/06/2024 15:32:25 Bilateral diffuse otitis externa 0619082977 785704 H60.313 Impacted c erumen of bilateral ears 4602167250 204531 H61.23 [id number] MANINDER JAY MD [facility] [address] [address] 03/12/2024 11:06:52 03/12/2024 11:56:11 Impacted cerumen of bilateral ears 0742157003 266063 H61.23 Bilateral diffuse otitis externa 2506330371 863839 H60.313 [id number] MIRI CONTRERAS MD [facility] [address] [address] 04/23/2024 10:17:05 04/23/2024 10:54:32 Impacted cerumen of bilateral ears 0973855685 013614 H61.23 Health Concerns Section Related Observation LastModified by Organization Detai ls LastModified Time None Recorded Concern Status LastModified by Organization Details LastModified Time None Recorded Advance Directives Directive None Recorded Payers Encounter Date Sequence Insurance Name Policy Number Policy Martinez Covered Member ID Martinez Member ID Guarantor Name 11/21/2023 2 [place] [facility] Thais Kincaid [id number] Thais Kincaid 11/21/2023 1 [place] [employer] Thais Kincaid [id number] Thais Kincaid 01/02/2024 2 [place] [facility] Thais Kincaid [id number] Thais Kincaid 01/02/2024 1 [place] [employer] Thais Kincaid [id number] Thais Kincaid 02/06/2024 2 [place] Thais Silva Mortell [id number] Thais Silva Mortell 02/06/2024 1 [place] [employer] Thais Silva Mortell [id number] Thais Silva Mortell 03/12/2024 2 [place] Thais Maddenell [id number] Thais Silva Mortell 03/12/2024 1 [place] [employer] Thais Maddenell [id number] Thais Silva Mortell 04/23/2024 2 [place] Thais Maddenell [id number] Thais Silva Mortell 04/23/2024 1 [place] [employer] Thais Maddenell [id number] Thais Maddenell Notes Date Note Type Note Provider Name and Address Organization Details Recorded Time 11/21/2023 text/html 48-year-old fema le with history of chronic OE, recurrent cerumen impactions, and hearing loss using amplification presents for routine ear cleaning. No concerns today. Accompanied by mom. Using vinegar in the ears. MIRI CONTRERAS MD [address] [place] [address], [phone], [facility] - [facility] 11/21/2023 20:20:08 01/02/2024 text/html 48-year-old fema le with history of chronic OE, recurrent cerumen impactions, and hearing loss using amplification presents for routine ear cleaning. Reports moisture and yellow drainage of the ears, R>L. No otalgia. Accompanied by mom. MIRI CONTRERAS MD [address] [place] [address], [address], [facility] - [facility] 01/03/2024 07:34:54 02/06/2024 text/html 48-year-old fema le with history of chronic OE, recurrent cerumen impactions, and hearing loss using amplification presents for routine ear cleaning. Used Tobradex. Denies otalgia and otorrhea. Accompanied by mom. JAKE GRANADOS MD [address] [place] [address],[address], [address], [place] - [facility] 02/06/2024 16:53:26 03/12/2024 text/html 49-year-old fema le with history of chronic OE, recurrent cerumen impactions, and hearing loss using amplification presents for routine ear cleaning. Denies otalgia and otorrhea. Accompanied by mom. MANINDER JAY MD [address] [place] [address],[address], [address], [facility] - [facility] 03/12/2024 12:06:04 04/23/2024 text/html 49-year-old fema le with history of chronic OE, recurrent cerumen impactions, and hearing loss using amplification presents for routine ear cleaning. Used Tobradex as recommended at previous visit. Denies otalgia and otorrhea. Accompanied by mom. MIRI CONTRERAS MD [address] [place] [address],[address], [address], [facility] 04/24/2024 13:30:32 OBGyn Episode No OBEpisode recorded.
--- OUTSIDE RECORDS SUMMARY | 2024-06-22 15:04 | XMS_ITS | Clinical Summary ---
Author Organization Unknown Care Team Providers Care Brewer Helper Name Role Phone AUSTIN BRISCOE, KATI Unavailable Unavailable JOHN PT, JAKE Unavailable Unavailable MAU VIRTUAL RECRUITER, CHINO Unavailable Unavailable Payers Payer Name Policy Type Policy Number Effective Date Expira tion Date MEDICARE.NGS.PDGM [id number] Problems Condition Name Condition Details Condition Category Status Onset Date Resolution Date Last Treatment Date Treating Clinician Comments AFTERCARE FOLLOWING JOINT REPLACEMENT SURGERY Active 2023-06 00:00: 00 PRESENCE OF LEFT ARTIFICIAL HIP JOINT Active 2023-06 00:00: 00 HYPERTENSIVE HEART DISEASE WITH HEART FAILURE Active 2023-06 00:00: 00 HEART FAILURE, UNSPECIFIED Active 2023-06 00:00: 00 ATHSCL HEART DISEASE OF [place] CORONARY ARTERY W/O ANG PCTRS Active 2023-06 00:00: 00 OBESITY, UNSPECIFIED Active 2023-06 00:00: 00 HYPOTHYROIDI SM, UNSPECIFIED Active 2023-06 00:00: 00 HYPERLIPIDEM IA, UNSPECIFIED Active 2023-06 00:00: 00 UNSPECIFIED HEARING LOSS, UNSPECIFIED EAR Active 2023-06 00:00: 00 PRESENCE OF CORONARY ANGIOPLASTY IMPLANT AND GRAFT Active 2023-06 00:00: 00 PRESENCE OF CARDIAC PACEMAKER Active 2023-06 00:00: 00 RESIDENTIAL (CURRENT) USE OF ASPIRIN Active 2023-06 00:00: 00 BODY MASS INDEX [BMI] 27.0-27.9, ADULT Active 2023-06 00:00: 00 RESIDENTIAL (CURRENT) USE OF ORAL HYPOGLYCEMIC DRUGS Active 06-17 00:00: 00 Allergies, Adverse Reactions, Alerts Allergy Name Allergy Type Status Severity Reaction(s) Onset Date Inactive Date Treating Clinician Comments PENICILLINS Propensity to adverse reactions Active 2023-06 11:53: 54 Medications Ordered Medication Name Filled Medication Name Start Date Stop Date Current Medication? Ordering Clinician Indication Dosage Frequency Signature (SIG) Comments Components oxycodone 5 mg tablet 2023-06 00:00: 00 Yes [id number] PAIN 1 tablet EVERY 8 HOURS 1 tablet EVERY 8 HOURS (route: oral) Med Classific ation: Analgesic , Anti-infl ammatory or Antipyret ic tramadol 50 mg tablet 2023-06 00:00: 00 Yes [id number] PAIN 1-2 tablet EVERY 8 HOURS 1-2 tablet EVERY 8 HOURS (route: oral) Med Classific ation: Analgesic , Anti-infl ammatory or Antipyret ic Entresto 24 mg-26 mg tablet 2023-06 00:00: 00 Yes [id number] HTN Per instruc tions TWICE A DAY Per instructio ns TWICE A DAY (route: oral) Med Classific ation: Cardiovas cular Therapy Agents spironolact one 25 mg tablet 2023-06 00:00: 00 Yes [id number] HEART FAILURE Per instruc tions EVERY DAY Per instructio ns EVERY DAY (route: oral) Med Classific ation: Cardiovas cular Therapy Agents acetaminoph en 500 mg tablet 2023-06 00:00: 00 Yes [id number] PAIN 2 tablet 3 TIMES DAILY 2 tablet 3 TIMES DAILY (route: oral) Med Classific ation: Analgesic , Anti-infl ammatory or Antipyret ic aspirin 81 mg tablet,clifton yed release 2023-06 00:00: 00 Yes [id number] DVT PROPHYLAXIS 2 tablet 2 TIMES DAILY 2 tablet 2 TIMES DAILY (route: oral) Med Classific ation: Hematolog ical Agents atorvastati n 80 mg tablet 2023-06 00:00: 00 Yes [id number] CHOLESTEROL 1 tablet DAILY 1 tablet DAILY (route: oral) Med Classific ation: Cardiovas cular Therapy Agents carvedilol 6.25 mg tablet 2023-06 00:00: 00 Yes [id number] HTN 1 tablet 2 TIMES DAILY 1 tablet 2 TIMES DAILY (route: oral) Med Classific ation: Cardiovas cular Therapy Agents Farxiga 10 mg tablet 2023-06 00:00: 00 Yes [id number] WEIGHT LOSS 1 tablet DAILY 1 tablet DAILY (route: oral) Med Classific ation: Endocrine levothyroxi ne 100 mcg capsule 2023-06 00:00: 00 Yes [id number] THYROID 1 capsule DAILY 1 capsule DAILY (route: oral) Med Classific ation: Endocrine Miralax 17 gram oral powder packet 2023-06 00:00: 00 Yes [id number] CONSTIPATIO N 1 packet DAILY 1 packet DAILY (route: oral) Med Classific ation: Gastroint estinal Therapy Agents naproxen 500 mg tablet 2023-06 00:00: 00 Yes [id number] pain 1 tablet 2 TIMES DAILY 1 tablet 2 TIMES DAILY (route: oral) Med Classific ation: Analgesic , Anti-infl ammatory or Antipyret ic Vital Signs Vital Name Observation Time Observation Value Commen ts Temperature 2024-06-19 13:16:00.000 97.9 [degF] Temperature 2024-06-02 15:05:00.000 97.5 [degF] Temperature 2024-05-27 14:27:00.000 97.9 [degF] Temperature 2024-05-19 11:46:00.000 98.1 [degF] Temperature 2024-05-08 12:56:00.000 98.1 [degF] Temperature 2024-05-04 11:06:00.000 97.6 [degF] BMI (%) 2024-05-04 11:06:00.000 27 kg/m2 Height 2024-05-04 11:06:00.000 57 [in_us] Pulse 2024-06-19 13:16:00.000 64 /min Pulse 2024-06-02 15:05:00.000 62 /min Pulse 2024-05-27 14:27:00.000 68 /min Pulse 2024-05-19 11:46:00.000 64 /min Pulse 2024-05-08 12:56:00.000 74 /min Pulse 2024-05-04 11:06:00.000 66 /min O2 Saturation (%) 2024-06-19 13:16:00.000 96 % O2 Saturation (%) 2024-06-02 15:05:00.000 98 % O2 Saturation (%) 2024-05-27 14:27:00.000 96 % O2 Saturation (%) 2024-05-19 11:46:00.000 97 % O2 Saturation (%) 2024-05-08 12:56:00.000 98 % O2 Saturation (%) 2024-05-04 11:06:00.000 97 % Respirations 2024-06-19 13:16:00.000 16 /min Respirations 2024-06-02 15:05:00.000 16 /min Respirations 2024-05-27 14:27:00.000 16 /min Respirations 2024-05-19 11:46:00.000 16 /min Respirations 2024-05-08 12:56:00.000 16 /min Respirations 2024-05-04 11:06:00.000 16 /min Weight (lbs) 2024-06-02 15:07:00.000 123.9 [lb_av] Weight (lbs) 2024-05-27 14:35:00.000 117 [lb_av] Weight (lbs) 2024-05-04 11:06:00.000 127 [lb_av] Systolic Blood Pressure 2024-06-19 13:16:00.000 124 mm [Hg] Systolic Blood Pressure 2024-06-02 15:05:00.000 100 mm [Hg] Systolic Blood Pressure 2024-05-27 14:27:00.000 102 mm [Hg] Systolic Blood Pressure 2024-05-19 11:46:00.000 126 mm [Hg] Systolic Blood Pressure 2024-05-08 12:56:00.000 110 mm [Hg] Systolic Blood Pressure 2024-05-04 11:06:00.000 86 mm[ Hg] Diastolic Blood Pressure 2024-06-19 13:16:00.000 66 mm [Hg] Diastolic Blood Pressure 2024-06-02 15:05:00.000 62 mm [Hg] Diastolic Blood Pressure 2024-05-27 14:27:00.000 64 mm [Hg] Diastolic Blood Pressure 2024-05-19 11:46:00.000 72 mm [Hg] Diastolic Blood Pressure 2024-05-08 12:56:00.000 72 mm [Hg] Diastolic Blood Pressure 2024-05-04 11:06:00.000 50 mm [Hg] Plan of Treatment Planned Activity Planned Date Details Comments Future Scheduled Test PT/VIRTUAL RECRUITER TO PROVIDE GAIT TRAINING FOR IMPROVED MOBILITY AND /OR TO NORMALIZE GAIT PATTERN [code = PT/VIRTUAL RECRUITER TO PROVIDE GAIT TRAINING FOR IMPROVED MOBILITY AND /OR TO NORMALIZE GAIT PATTERN] Future Scheduled Test THERAPEUTI C EXERCISES AND ESTABLISHING A HOME EXERCISE PROGRAM (PT/VIRTUAL RECRUITER) [code = THERAPEUTIC EXERCISES AND ESTABLISHING A HOME EXERCISE PROGRAM (PT/VIRTUAL RECRUITER)] Future Scheduled Test PT/VIRTUAL RECRUITER TO IDENTIFY FALL RISK FACTORS; EDUCATE THE PATIENT/CAREGIVER ON WAYS TO REDUCE FALL RISK FACTORS AND ESTABLISH HOME EXERCISE PROGRAM TO MINIMIZE FALL RISK. MAY TEACH THE PATIENT FLOOR RECOVERY WHEN CLINICALLY APPROPRIATE [code = PT/VIRTUAL RECRUITER TO IDENTIFY FALL RISK FACTORS; EDUCATE THE PATIENT/CAREGIVER ON WAYS TO REDUCE FALL RISK FACTORS AND ESTABLISH HOME EXERCISE PROGRAM TO MINIMIZE FALL RISK. MAY TEACH THE PATIENT FLOOR RECOVERY WHEN CLINICALLY APPROPRIATE] Future Scheduled Test PT/VIRTUAL RECRUITER TO PROVIDE STAIR TRAINING [code = PT/VIRTUAL RECRUITER TO PROVIDE STAIR TRAINING] Future Scheduled Test BED TRANSF ERS (PT/VIRTUAL RECRUITER) [code = BED TRANSFERS (PT/VIRTUAL RECRUITER)] Future Scheduled Test SIT TO/FRO M STAND TRANSFERS (PT/VIRTUAL RECRUITER) [code = SIT TO/FROM STAND TRANSFERS (PT/VIRTUAL RECRUITER)] Future Scheduled Test CHAIR LYLE SFERS (PT/VIRTUAL RECRUITER) [code = CHAIR TRANSFERS (PT/VIRTUAL RECRUITER)] Future Scheduled Test PT / VIRTUAL RECRUITER M AY EDUCATE ON PAIN MANAGEMENT CLINICALLY INDICATED, INCLUDING NON-PHARMACOLOGICAL PAIN REDUCTION TECHNIQUES [code = PT / VIRTUAL RECRUITER MAY EDUCATE ON PAIN MANAGEMENT CLINICALLY INDICATED, INCLUDING NON-PHARMACOLOGICAL PAIN REDUCTION TECHNIQUES ] Future Scheduled Test AGENCY MAY PERFORM A RESUMPTION OF CARE VISIT FOLLOWING ANY HOSPITAL ADMISSION. PT TO EVALUATE, OBSERVE / ASSESS, AND MONITOR, VIRTUAL RECRUITER TO OBSERVE AND MONITOR, PROVIDE SKILLED THERAPEUTIC INTERVENTION, ACTIVITY, EDUCATION, AND TRAINING TO ADDRESS; [code = AGENCY MAY PERFORM A RESUMPTION OF CARE VISIT FOLLOWING ANY HOSPITAL ADMISSION. PT TO EVALUATE, OBSERVE / ASSESS, AND MONITOR, VIRTUAL RECRUITER TO OBSERVE AND MONITOR, PROVIDE SKILLED THERAPEUTIC INTERVENTION, ACTIVITY, EDUCATION, AND TRAINING TO ADDRESS;] Future Scheduled Test NEUROMUSCU LAR RE-EDUCATION / BALANCE / POSTURAL CONTROL (PT) [code = NEUROMUSCULAR RE-EDUCATION / BALANCE / POSTURAL CONTROL (PT)] Future Scheduled Test PT / VIRTUAL RECRUITER T O EDUCATE ON HIP REPLACEMENT SELF-MANAGEMENT [code = PT / VIRTUAL RECRUITER TO EDUCATE ON HIP REPLACEMENT SELF-MANAGEMENT] Future Scheduled Test PT TO ASSE SS / VIRTUAL RECRUITER TO MONITOR FOR HEART FAILURE EXACERBATION AND RECORD PATIENT REPORTED WEIGHT, AND NOTIFY THE PHYSICIAN AND/OR THE RN CLINICAL AIR POLLUTION SPECIALIST FOR PHYSICIAN NOTIFICATION OF HF EXACERBATION (2LB WEIGHT GAIN IN 1 DAY, 5LBS IN A WEEK OR 5 LBS OVER BASELINE; INCREASED SOB, EDEMA, NEEDING MORE PILLOWS AT NIGHT, CRACKLES IN BASIS OF THE LUNGS OR PMI SHIFT) [code = PT TO ASSESS / VIRTUAL RECRUITER TO MONITOR FOR HEART FAILURE EXACERBATION AND RECORD PATIENT REPORTED WEIGHT, AND NOTIFY THE PHYSICIAN AND/OR THE RN CLINICAL AIR POLLUTION SPECIALIST FOR PHYSICIAN NOTIFICATION OF HF EXACERBATION (2LB WEIGHT GAIN IN 1 DAY, 5LBS IN A WEEK OR 5 LBS OVER BASELINE; INCREASED SOB, EDEMA, NEEDING MORE PILLOWS AT NIGHT, CRACKLES IN BASIS OF THE LUNGS OR PMI SHIFT)] Future Scheduled Test PT / VIRTUAL RECRUITER T O OBSERVE WOUND/INCISION AND/OR INTACT DRESSING ON L HIP AND REPORT EARLY SIGNS AND SYMPTOMS OF WOUND DETERIORATION, COMPLICATIONS, OR INFECTION TO PHYSICIAN AND/OR THE RN CLINICAL AIR POLLUTION SPECIALIST FOR PHYSICIAN NOTIFICATION. DRESSING TO BE REMOVED BY CAREGIVER POST OP DAY 7. [code = PT / VIRTUAL RECRUITER TO OBSERVE WOUND/INCISION AND/OR INTACT DRESSING ON L HIP AND REPORT EARLY SIGNS AND SYMPTOMS OF WOUND DETERIORATION, COMPLICATIONS, OR INFECTION TO PHYSICIAN AND/OR THE RN CLINICAL AIR POLLUTION SPECIALIST FOR PHYSICIAN NOTIFICATION. DRESSING TO BE REMOVED BY CAREGIVER POST OP DAY 7.] Goal Patient Goal - WALK BETTER. Goal Provider Goal - PT LTG: PATIENT WILL DEMONSTRATE IMPROVED AMBULATION FROM MIN A TO INDEPENDENT WITHIN 9 WEEKS PT LTG: PATIENT WILL DEMONSTRATE IMPROVE STAIR SKILLS FROM MINIMAL ASSISTANCE TO INDEPENDENT WITHIN 9 WEEKS TO ALLOW PATIENT TO GET TO AND FROM CAR INDEPENDENTLY. PT LTG: PATIENT WILL DEMONSTRATE REDUCED FALL RISK EVIDENCED BY IMPROVED SELF- SELECTED WALKING SPEED (SSWS CUT SCORE 0.6 TO 0.9 INDICATES MODERATE FALL RISK, 0.6 M/S INDICATES HIGH FALL RISK) FROM MIN A TO 0.8 WITHIN 9 WEEKS. PT LTG: PATIENT WILL DEMONSTRATE REDUCED FALL RISK EVIDENCED BY TUG TEST (CUT SCORE >11 SECONDS INDICATES INCREASED FALL RISK) IMPROVING FROM MIN A TO 15 WITHIN 9 WEEKS. PT LTG: PATIENT WILL DEMONSTRATE IMPROVED FUNCTIONAL STRENGTH EVIDENCED BY FIVE TIMES SIT TO STAND TEST (CUT SCORE >12 SECONDS INDICATES AN INCREASED FALL RISK) IMPROVING FROM MIN A TO 15 WITHIN 9 WEEKS. PT LTG: PATIENT WILL DEMONSTRATE INCREASED STRENGTH OF LLE FROM 3-/5 TO 4/5 WITHIN 9 WEEKS IN ORDER TO RETURN TO INDEPENDENT TRANSFER AND AMBULATION SKILLS. PT STG: PATIENT WILL DEMONSTRATE IMPROVED ABILITY TO PERFORM SIT TO/FROM STAND TRANSFERS TO REDUCE THE RISK OF SKIN BREAKDOWN AND REDUCE FALL RISK FROM MIN A TO INDEPENDENT WITHIN 4 WEEKS. PT STG: PATIENT WILL DEMONSTRATE IMPROVED ABILITY TO PERFORM CHAIR TRANSFERS TO REDUCE THE RISK OF SKIN BREAKDOWN AND FALL RISK FROM MIN A TO INDEPENDENT WITHIN 4 WEEKS. Goal Provider Goal - Goal Provider Goal - PT LTG: PATIENT/CAREGIVER WILL DEMONSTRATE ADHERENCE TO FALL REDUCTION SELF-MANAGEMENT AND REDUCING FALL RISK FACTORS TO MINIMIZE FALL RISK BY END OF EPISODE. PT LTG: PATIENT WILL BE INDEPENDENT WITH IMPLEMENTATION OF HEP WITHIN 5 WEEKS. PT LTG: CAREGIVER WILL BE INDEPENDENT ASSISTING PATIENT TO COMPLETE HEP WITHIN 5 WEEKS. Goal Provider Goal - Goal Provider Goal - PT STG: PATIENT WILL DEMONSTRATE IMPROVED ABILITY TO PERFORM BED TRANSFERS IN ORDER TO REDUCE RISK OF SKIN BREAKDOWN FROM MIN A TO INDEPENDENT WITHIN 3 WEEKS. Goal Provider Goal - Goal Provider Goal - Goal Provider Goal - PT GOAL: PATIENT WILL DEMONSTRATE UNDERSTANDING OF PAIN MANAGEMENT TECHNIQUES EVIDENCED BY REDUCED PAIN Goal Provider Goal - Goal Provider Goal - Goal Provider Goal - PT GOAL: PATIENT WILL DEMONSTRATE OPTIMAL OUTCOMES INCLUDING INCREASED ROM AND STRENGTH WITH NO COMPLICATIONS FOLLOWING HIP SURGERY BY END OF EPISODE. Goal Provider Goal - PT GOAL: PATIENTS HEART FAILURE WILL REMAIN WELL CONTROLLED THROUGHOUT EPISODE OF CARE. Goal Provider Goal - PT GOAL: THE PATIENT WILL NOT DEMONSTRATE ANY WOUND COMPLICATIONS DURING THE EPISODE OF CARE. Encounters Start Date/Time End Date/Time Encounter Type Admission Type Attending [facility] Care Department Encounter ID Discharge Date Discharge Status Discharge Condition Discharge Reason Percent Goals Met 2024-05-04 00:00:00 2024-07-02 00:00:00 Outpatient NEW ADMISSION JAKE LOPEZ [facility] [id number] 29.41
--- OUTSIDE RECORDS SUMMARY | 2024-06-22 15:04 | XMS_ITS | Continuity of Care Document ---
Author Organization [place] - [facility], [facility] Address [address] [place] [address] Care Team Providers Care Communications Professional Name Role Phone KATELINSAMI Primary Care Provider Assessment Encounter Date Assessment Date Assessment LastModified by Organization Details LastModified Time 04/23/2024 04/23/2024 49-year-old female with history of chronic OE, recurrent cerumen impactions, and hearing loss using amplification presents for routine ear cleaning. The infection has resolved. Cerumen impaction removed bilaterally. Otologic exam is stable. She will follow-up in 6 weeks for routine debridement, or sooner with any worsening symptoms. [email or web address] Not available 04/23/2024 11:06:14 Plan of Treatment [...] None recorded. Imaging None recorded. Medication Orders None recorded. Patient TargetsNo targets recorded. Patient InstructionsNo instructions recorded. Reason for Referral None Reported. Problems Name Problem SNOMED Code Status Onset Date Resolution Date Notes Provider Name and Address Organization Details Recorded Time Otorrhea of right ear [id number] 70643 Active 2022 Otorrhea , right ear; Note: Date Diagnose d: 5/11/202 3 11:49 AM (H92.13) Not Available [facility] 4 02:53:46 Mixed conducti ve and sensorin eural hearing loss, bilatera l 446288158 Active 2014 Mixed hearing loss, bilatera l; Note: Date Diagnose d: 5 12:14 PM (389.22) Mixed conducti ve and sensorin eural hearing loss, bilatera l; Note: Date Diagnose d: 5 12:14 PM (H90.6) [mapped from ICD9 code: 389.22] Not Available [facility] 4 02:53:46 Sensorin eural hearing loss in right ear 94791371393 100 Active 2018 Sensorin eural hearing loss, unilater al, right ear, with restrict ed hearing on the contrala teral side; Note: Date Diagnose d: 9 4:51 PM (H90.A21 ) Not Available [facility] 4 02:53:45 Bilatera l diffuse otitis externa 65958988901 04103 Completed 201801/17/2024 Diffuse otitis externa, bilatera l; Note: Date Diagnose d: 11/20/2018 2:38 PM (H60.313 ) BERNICE SPEARS PA-C [address] [place] [address], [place], [address] , [facility] - [facility] 4 15:19:29 Candidal otitis externa 29097826 Active 2014 Candidia sis: Candidal otitis externa; Note: Date Diagnose d: 5 12:14 PM (112.82) [mapped from ICD9 code: 389.22] Candid al otitis externa; Note: Date Diagnose d: 5 12:15 PM (B37.84) [mapped from ICD9 code: 112.82] Not Available [facility] 4 02:53:44 Impacted cerumen of bilatera l ears 67619143239 43438 Active 2014 Impacted cerumen, bilatera l; Note: Date Diagnose d: 5 2:31 PM (H61.23) [mapped from ICD9 code: 380.4] Not Available [facility] 4 02:53:46 Otorrhea of bilatera l ears 06163013938 48026 Completed 202101/17/2024 Otorrhea , bilatera l; Note: Date Diagnose d: 03/27/20 22 3:43 PM (H92.13) Not Available [facility] 4 02:53:48 Impacted cerumen 14293997 Active 2014 Impacted cerumen; CMS Risk: low risk CMS Treatmen t: new problem (to examiner ): no addition al workup planned Not Available [facility] 4 02:53:45 Impacted cerumen in left ear 89259722802 51608 Active 2019 Impacted cerumen, left ear; Note: Date Diagnose d: 11/17/2019 1:33 PM (H61.22) Not Available [facility] 4 02:53:44 Chronic mycotic otitis externa 377075463 Active 2014 Chronic mycotic otitis externa; Note: Date Diagnose d: 5 2:29 PM (380.15) Not Available [facility] 4 02:53:43 Diffuse otitis externa 02856766 Active 2019 Diffuse otitis externa, right ear; Note: Date Diagnose d: 11/17/2019 1:33 PM (H60.311 ) ; Start Date : 11/17/19 20 Diffu se otitis externa, left ear; Note: Date Diagnose d: 12/22/2019 1:58 PM (H60.312 ) Not Available [facility] 4 02:53:47 Impacted cerumen in right ear 29786522937 67765 Active 2022 Impacted cerumen, right ear; Note: Date Diagnose d: 3 1:57 PM (H61.21) Not Available [facility] 4 02:53:45 Mixed conducti ve and sensorin eural hearing loss of left ear 75378677209 107 Active 2018 Mixed conducti ve and sensorin eural hearing loss, unilater al, left ear with restrict ed hearing on the contrala teral side; Note: Date Diagnose d: 9 4:51 PM (H90.A32 ) Not Available [facility] 4 02:53:47 Bilatera l diffuse otitis externa 65278630097 31480 Active 2023 Diffuse otitis externa, bilatera l; Note: Date Diagnose d: 11/20/2018 2:38 PM (H60.313 ) BERNICE SPEARS PA-C [address] [facility],[address], [address] , [facility] - [facility] 4 15:19:29 Problem Notes None recorded. Procedures Surgical History Date Name Laterality Status Provider Name and Address Organization Details Recorded Time 4 Cerumen removal without microscope bilat completed BERNICE SPEARS PA-C [address] [facility],[address], [address], [facility] - [facility] 04/23/2024 11:04:35 4 Cerumen removal without microscope bilat completed BERNICE SPEARS PA-C [address] [facility],[address], [address], [facility] - [facility] 03/12/2024 11:07:32 4 Cerumen removal without microscope bilat completed BERNICE SPEARS PA-C [address] [facility],[address], [address], [facility] - [facility] 02/06/2024 15:55:18 4 Cerumen removal without microscope bilat completed BERNICE SPEARS PA-C [address] [facility],SEGUNDO [address] [place] [address], [address], [facility] - [facility] 01/02/2024 12:54:36 4 Cerumen removal without microscope bilat completed BERNICE SPEARS PA-C [address] [facility],[address], [address], [facility] - [facility] 11/21/2023 11:16:14 Imaging Results None recorded. Procedure Notes None recorded. Medical Equipment None Reported. Allergies Allergen ID Allergen Name Allergen Category Reaction Reaction Severity Criticality Documentation Date Start Date Code Code System Note Provider Name and Address Organization Details Recorded Time [id number] penicilli n V potassium medicatio n other Not available Not available 10/29/2023 5 RxNorm React ion: unkno wn, unspe cifie d;; Not Available [facility] 4 01:15:41 Medications Name Sig Start Date [...] mg tablet 09/12 completed Medicati on ID: [id number] Du ration Value: 30 Brand Name: lisinopr il Send Method: E-Prescr ibed Sub s Allowed: subs OK Speci al Instruct ion: TAKE 1 TABLET BY MOUTH EVERY DAY Medi cationGe nericNam e: lisinopr il Not Available Not Available Not Available Ciloxan 0.3 % eye drops 03/08 [place]: [id number] Pr escribed By Name: NUBIA Sweet nd [...] mcg tablet 2020 active Medicati on ID: [id number] B rand Name: levothyr oxine Se nd Method: E-Prescr ibed Sub s Allowed: subs OK Medic ationGen ericName : levothyr oxine Not Available Not Available Not Available sulfaceta mide sodium 10 % eye drops 2020 active Medicati on ID: [id number] D uration Value: 14 Brand Name: sulfacet amide sodium S end Method: E-Prescr ibed Sub s Allowed: subs OK Speci al Instruct ion: 4 drops to affected ear BID x 14 days Med icationG enericNa me: sulfacet amide sodium Not Available Not Available Not Available levothyro xine 50 mcg tablet 11/19 completed Medicati on ID: [id number] Du ration Value: 30 Reason: () Brand Name: levothyr oxine Se nd Method: E-Prescr ibed Sub s Allowed: subs OK Speci al Instruct ion: TAKE 1 TABLET BY MOUTH EVERY DAY Medi cationGe nericNam e: levothyr oxine Not Available Not Available Not Available simvastat in 20 mg tablet 09/12 completed Medicati on ID: [id number] D uration Value: 30 Brand Name: simvasta [...] a day 2022 active Medicati on ID: [id number] D uration Value: 14 Brand Name: clotrima [...] a day 2023 active Medicati on ID: [id number] D uration Value: 14 Brand Name: Ciprodex [...] Available Not Available No t Available Vitals None Recorded Social History None recorded. Functional Status None recorded. Mental Status None recorded. Family History Nothing Reported. Medical History No medical history recorded. Gynecological HistoryNo gynecological history recorded. Obstetrics History GPAL:G 0 P 0 0 0 0 Past Encounters Encounter ID Performer Location Encounter Start Date Encounter Closed Date Diagnosis/Indication Diagnosis SNOMED-CT Code Diagnosis ICD10 Code Diagnosis Note [id number] MIRI CONTRERAS MD [facility] [address] [place] [address] 04/23/2024 10:17:05 04/23/2024 10:54:32 Impacted cerumen of bilateral ears [id number] H61.23 Health Concerns Section Related Observation LastModified by Organization Detai ls LastModified Time None Recorded Concern Status LastModified by Organization Details LastModified Time None Recorded Payers Encounter Date Sequence Insurance Name Policy Number Policy Martinez Covered Member ID Martinez Member ID Guarantor Name 04/23/2024 2 [place] [facility] Thais Kincaid [id number] Thais Kincaid 04/23/2024 1 MEDICARE B-[place]: [facility] Thais Kincaid [id number] Thais Kincaid Notes Date Note Type Note Provider Name and Address Organization Details Recorded Time 04/23/2024 text/html 49-year-old fema le with history of chronic OE, recurrent cerumen impactions, and hearing loss using amplification presents for routine ear cleaning. Used Tobradex as recommended at previous visit. Denies otalgia and otorrhea. Accompanied by mom. MIRI CONTRERAS MD [address] [place] [address], [phone], [facility] - [facility] 04/24/2024 13:30:32 OBGyn Episode No OBEpisode recorded.
--- NOTE | 2024-06-22 16:09 | MHC.AU.HA3 ---
Hearing Instrument Follow-Up- Binaural Date of Visit: 06/22/24 Right Ear: Make, Model, Color, Serial Number: Otdaniel Xceed 2 BTE SP Color: Silver S#[id number] Secondary English Teacher Repair Warranty: 04/11/2027 Secondary English Teacher Loss and Damage Warranty: 04/11/2027 [facility] Service Plan: 03/27/25 Battery Size: 13 Property Maintenance Technician/Slim Tube: Earmold/Dome/CShell/SlimTip:Gigi Full Shell 40 Shore Silicone S#[id number] Warranty 06/18/2024 Type of Wax Guard: Dispensed By: [facility] Date of Fittin03/27/24 Left Ear: Make, Model, Color, Serial Number: Otdaniel Xceed 2 BTE SP Color: Silver S#[id number] Secondary English Teacher Repair Warranty: 04/11/2027 Secondary English Teacher Loss and Damage Warranty: 04/11/2027 [facility] Service Plan: 03/27/25 Battery Size: 13 Earmold/Dome/CShell/SlimTip: Gigi Full Shell 40 Shore Silicone S#[id number] Warranty 06/18/2024 Date of Fittin03/27/24 Follow-Up Summary: Thais is here with mother due to tube splitting. Found both tubes hard and debris in tubes. Thais reports soreness/scabbing in tragus area with the earmolds. Cleaned aids and earmolds, replaced tubing. Noted area of discomfort and modified molds accordingly. Improvement reported. Advised to return if discomfort persists as impressions would need to be taken for new earmolds. Recommendations: Recommendations: Hearing instrument follow-up or maintenance as needed. Diagnosis Code(s): Primary Diagnosis: H90.3 Bilateral Sensorineural Hearing Loss Signature: Provider: Michela Washburn, [facility]
== END 2024-06-22 12:59 | disposition home or self-care (01) ==
LOC: HO.HAP 12:58
PROVIDERS: Visit Provider Internal Medicine
DX: Z13.89 Encounter for screening for other disorder (principal)

== ENCOUNTER 2024-06-24 11:13 | Outpatient (REF) | payer MEDICARE, MEDICAID, SELFPAY ==
--- OUTSIDE RECORDS SUMMARY | 2024-06-24 11:35 | XMS_ITS | Clinical Summary ---
Author Organization Unknown Care Team Providers Care Needle Grinder Name Role Phone AUSTIN BRISCOE, KATI Unavailable Unavailable JOHN PT, JAKE Unavailable Unavailable MAU FIELD MECHANIC/SITE LEAD, CHINO Unavailable Unavailable Payers Payer Name Policy Type Policy Number Effective Date Expira tion Date MEDICARE.NGS.PDGM [id number] Problems Condition Name Condition Details Condition Category Status Onset Date Resolution Date Last Treatment Date Treating Clinician Comments AFTERCARE FOLLOWING JOINT REPLACEMENT SURGERY Active 2023-06 00:00: 00 PRESENCE OF LEFT ARTIFICIAL HIP JOINT Active 2023-06 00:00: 00 HYPERTENSIVE HEART DISEASE WITH HEART FAILURE Active 2023-06 00:00: 00 HEART FAILURE, UNSPECIFIED Active 2023-06 00:00: 00 ATHSCL HEART DISEASE OF [place] CORONARY ARTERY W/O ANG PCTRS Active 2023-06 00:00: 00 OBESITY, UNSPECIFIED Active 2023-06 00:00: 00 HYPOTHYROIDI SM, UNSPECIFIED Active 2023-06 00:00: 00 HYPERLIPIDEM IA, UNSPECIFIED Active 2023-06 00:00: 00 UNSPECIFIED HEARING LOSS, UNSPECIFIED EAR Active 2023-06 00:00: 00 PRESENCE OF CORONARY ANGIOPLASTY IMPLANT AND GRAFT Active 2023-06 00:00: 00 PRESENCE OF CARDIAC PACEMAKER Active 2023-06 00:00: 00 ALF (CURRENT) USE OF ASPIRIN Active 2023-06 00:00: 00 BODY MASS INDEX [BMI] 27.0-27.9, ADULT Active 2023-06 00:00: 00 ALF (CURRENT) USE OF ORAL HYPOGLYCEMIC DRUGS Active [...] 5 mg tablet 2023-06 00:00: 00 Yes [id number] PAIN 1 tablet EVERY 8 HOURS 1 tablet EVERY 8 HOURS (route: oral) Med Classific ation: Analgesic , Anti-infl ammatory or Antipyret ic tramadol 50 mg tablet 2023-06 00:00: 00 Yes [id number] PAIN 1-2 tablet EVERY 8 HOURS 1-2 tablet EVERY 8 HOURS (route: oral) Med Classific ation: Analgesic , Anti-infl ammatory or Antipyret ic Entresto 24 mg-26 mg tablet 2023-06 00:00: 00 Yes [id number] HTN Per instruc tions TWICE A DAY Per instructio ns TWICE A DAY (route: oral) Med Classific ation: Cardiovas cular Therapy Agents spironolact one 25 mg tablet 2023-06 00:00: 00 Yes [id number] HEART FAILURE Per instruc tions EVERY DAY Per instructio ns EVERY DAY (route: oral) Med Classific ation: Cardiovas cular Therapy Agents acetaminoph en 500 mg tablet 2023-06 00:00: 00 Yes [id number] PAIN 2 tablet 3 TIMES DAILY 2 tablet 3 TIMES DAILY (route: oral) Med Classific ation: Analgesic , Anti-infl ammatory or Antipyret ic aspirin 81 mg tablet,clifton yed release 2023-06 00:00: 00 Yes [id number] DVT PROPHYLAXIS 2 tablet 2 TIMES DAILY 2 tablet 2 TIMES DAILY (route: oral) Med Classific ation: Hematolog ical Agents atorvastati n 80 mg tablet 2023-06 00:00: 00 Yes [id number] CHOLESTEROL 1 tablet DAILY 1 tablet DAILY (route: oral) Med Classific ation: Cardiovas cular Therapy Agents carvedilol 6.25 mg tablet 2023-06 00:00: 00 Yes [id number] HTN 1 tablet 2 TIMES DAILY 1 tablet 2 TIMES DAILY (route: oral) Med Classific ation: Cardiovas cular Therapy Agents Farxiga 10 mg tablet 2023-06 00:00: 00 Yes [id number] WEIGHT LOSS 1 tablet DAILY 1 tablet DAILY (route: oral) Med Classific ation: Endocrine levothyroxi ne 100 mcg capsule 2023-06 00:00: 00 Yes [id number] THYROID 1 capsule DAILY 1 capsule DAILY (route: oral) Med Classific ation: Endocrine Miralax 17 gram oral powder packet 2023-06 00:00: 00 Yes [id number] CONSTIPATIO N 1 packet DAILY 1 packet DAILY (route: oral) Med Classific ation: Gastroint estinal Therapy Agents naproxen 500 mg tablet 2023-06 00:00: 00 Yes [id number] pain 1 tablet 2 TIMES DAILY 1 [...] Planned Date Details Comments Future Scheduled Test PT/FIELD MECHANIC/SITE LEAD TO PROVIDE GAIT TRAINING FOR IMPROVED MOBILITY AND /OR TO NORMALIZE GAIT PATTERN [code = PT/FIELD MECHANIC/SITE LEAD TO PROVIDE GAIT TRAINING FOR IMPROVED MOBILITY AND /OR TO NORMALIZE GAIT PATTERN] Future Scheduled Test THERAPEUTI C EXERCISES AND ESTABLISHING A HOME EXERCISE PROGRAM (PT/FIELD MECHANIC/SITE LEAD) [code = THERAPEUTIC EXERCISES AND ESTABLISHING A HOME EXERCISE PROGRAM (PT/FIELD MECHANIC/SITE LEAD)] Future Scheduled Test PT/FIELD MECHANIC/SITE LEAD TO IDENTIFY FALL RISK FACTORS; EDUCATE THE PATIENT/CAREGIVER ON WAYS TO REDUCE FALL RISK FACTORS AND ESTABLISH HOME EXERCISE PROGRAM TO MINIMIZE FALL RISK. MAY TEACH THE PATIENT FLOOR RECOVERY WHEN CLINICALLY APPROPRIATE [code = PT/FIELD MECHANIC/SITE LEAD TO IDENTIFY FALL RISK FACTORS; EDUCATE THE PATIENT/CAREGIVER ON WAYS TO REDUCE FALL RISK FACTORS AND ESTABLISH HOME EXERCISE PROGRAM TO MINIMIZE FALL RISK. MAY TEACH THE PATIENT FLOOR RECOVERY WHEN CLINICALLY APPROPRIATE] Future Scheduled Test PT/FIELD MECHANIC/SITE LEAD TO PROVIDE STAIR TRAINING [code = PT/FIELD MECHANIC/SITE LEAD TO PROVIDE STAIR TRAINING] Future Scheduled Test BED TRANSF ERS (PT/FIELD MECHANIC/SITE LEAD) [code = BED TRANSFERS (PT/FIELD MECHANIC/SITE LEAD)] Future Scheduled Test SIT TO/FRO M STAND TRANSFERS (PT/FIELD MECHANIC/SITE LEAD) [code = SIT TO/FROM STAND TRANSFERS (PT/FIELD MECHANIC/SITE LEAD)] Future Scheduled Test CHAIR LYLE SFERS (PT/FIELD MECHANIC/SITE LEAD) [code = CHAIR TRANSFERS (PT/FIELD MECHANIC/SITE LEAD)] Future Scheduled Test PT / FIELD MECHANIC/SITE LEAD M AY EDUCATE ON PAIN MANAGEMENT CLINICALLY INDICATED, INCLUDING NON-PHARMACOLOGICAL PAIN REDUCTION TECHNIQUES [code = PT / FIELD MECHANIC/SITE LEAD MAY EDUCATE ON PAIN MANAGEMENT CLINICALLY INDICATED, INCLUDING NON-PHARMACOLOGICAL PAIN REDUCTION TECHNIQUES ] Future Scheduled Test AGENCY MAY PERFORM A RESUMPTION OF CARE VISIT FOLLOWING ANY HOSPITAL ADMISSION. PT TO EVALUATE, OBSERVE / ASSESS, AND MONITOR, FIELD MECHANIC/SITE LEAD TO OBSERVE AND MONITOR, PROVIDE SKILLED THERAPEUTIC INTERVENTION, ACTIVITY, EDUCATION, AND TRAINING TO ADDRESS; [code = AGENCY MAY PERFORM A RESUMPTION OF CARE VISIT FOLLOWING ANY HOSPITAL ADMISSION. PT TO EVALUATE, OBSERVE / ASSESS, AND MONITOR, FIELD MECHANIC/SITE LEAD TO OBSERVE AND MONITOR, PROVIDE SKILLED THERAPEUTIC INTERVENTION, ACTIVITY, EDUCATION, AND TRAINING TO ADDRESS;] Future Scheduled Test NEUROMUSCU LAR RE-EDUCATION / BALANCE / POSTURAL CONTROL (PT) [code = NEUROMUSCULAR RE-EDUCATION / BALANCE / POSTURAL CONTROL (PT)] Future Scheduled Test PT / FIELD MECHANIC/SITE LEAD T O EDUCATE ON HIP REPLACEMENT SELF-MANAGEMENT [code = PT / FIELD MECHANIC/SITE LEAD TO EDUCATE ON HIP REPLACEMENT SELF-MANAGEMENT] Future Scheduled Test PT TO ASSE SS / FIELD MECHANIC/SITE LEAD TO MONITOR FOR HEART FAILURE EXACERBATION AND RECORD PATIENT REPORTED WEIGHT, AND NOTIFY THE PHYSICIAN AND/OR THE RN CLINICAL PLASTIC BOAT PATCHER FOR PHYSICIAN NOTIFICATION OF HF EXACERBATION (2LB WEIGHT GAIN IN 1 DAY, 5LBS IN A WEEK OR 5 LBS OVER BASELINE; INCREASED SOB, EDEMA, NEEDING MORE PILLOWS AT NIGHT, CRACKLES IN BASIS OF THE LUNGS OR PMI SHIFT) [code = PT TO ASSESS / FIELD MECHANIC/SITE LEAD TO MONITOR FOR HEART FAILURE EXACERBATION AND RECORD PATIENT REPORTED WEIGHT, AND NOTIFY THE PHYSICIAN AND/OR THE RN CLINICAL PLASTIC BOAT PATCHER FOR PHYSICIAN NOTIFICATION OF HF EXACERBATION (2LB WEIGHT GAIN IN 1 DAY, 5LBS IN A WEEK OR 5 LBS OVER BASELINE; INCREASED SOB, EDEMA, NEEDING MORE PILLOWS AT NIGHT, CRACKLES IN BASIS OF THE LUNGS OR PMI SHIFT)] Future Scheduled Test PT / FIELD MECHANIC/SITE LEAD T O OBSERVE WOUND/INCISION AND/OR INTACT DRESSING ON L HIP AND REPORT EARLY SIGNS AND SYMPTOMS OF WOUND DETERIORATION, COMPLICATIONS, OR INFECTION TO PHYSICIAN AND/OR THE RN CLINICAL PLASTIC BOAT PATCHER FOR PHYSICIAN NOTIFICATION. DRESSING TO BE REMOVED BY CAREGIVER POST OP DAY 7. [code = PT / FIELD MECHANIC/SITE LEAD TO OBSERVE WOUND/INCISION AND/OR INTACT DRESSING ON L HIP AND REPORT EARLY SIGNS AND SYMPTOMS OF WOUND DETERIORATION, COMPLICATIONS, OR INFECTION TO PHYSICIAN AND/OR THE RN CLINICAL PLASTIC BOAT PATCHER FOR PHYSICIAN NOTIFICATION. DRESSING TO BE REMOVED [...] End Date/Time Encounter Type Admission Type Attending [facility] Care Department Encounter ID Discharge Date Discharge Status Discharge Condition Discharge Reason Percent Goals Met 2024-05-04 00:00:00 2024-07-02 00:00:00 Outpatient NEW ADMISSION JAKE LOPEZ [facility] ED [id number] 29.41
--- OUTSIDE RECORDS SUMMARY | 2024-06-24 11:35 | XMS_ITS | Clinical Summary ---
Author Organization Unknown Care Team Providers Care Sociocultural Anthropology Professor Name Role Phone AUSTIN BRISCOE, KATI Unavailable Unavailable JOHN PT, JAKE Unavailable Unavailable MAU PRESS TENDER SMOKE SIGNAL, CHINO Unavailable Unavailable Payers Payer Name Policy Type Policy Number Effective Date Expira tion Date MEDICARE.NGS.PDGM [id number] Problems Condition Name Condition Details Condition Category Status Onset Date Resolution Date Last Treatment Date Treating Clinician Comments AFTERCARE FOLLOWING JOINT REPLACEMENT SURGERY Active 2023-06 00:00: 00 PRESENCE OF LEFT ARTIFICIAL HIP JOINT Active 2023-06 00:00: 00 HYPERTENSIVE HEART DISEASE WITH HEART FAILURE Active 2023-06 00:00: 00 HEART FAILURE, UNSPECIFIED Active 2023-06 00:00: 00 ATHSCL HEART DISEASE OF [place] CORONARY ARTERY W/O ANG PCTRS Active 2023-06 00:00: 00 OBESITY, UNSPECIFIED Active 2023-06 00:00: 00 HYPOTHYROIDI SM, UNSPECIFIED Active 2023-06 00:00: 00 HYPERLIPIDEM IA, UNSPECIFIED Active 2023-06 00:00: 00 UNSPECIFIED HEARING LOSS, UNSPECIFIED EAR Active 2023-06 00:00: 00 PRESENCE OF CORONARY ANGIOPLASTY IMPLANT AND GRAFT Active 2023-06 00:00: 00 PRESENCE OF CARDIAC PACEMAKER Active 2023-06 00:00: 00 JAIL (CURRENT) USE OF ASPIRIN Active 2023-06 00:00: 00 BODY MASS INDEX [BMI] 27.0-27.9, ADULT Active 2023-06 00:00: 00 JAIL (CURRENT) USE OF ORAL HYPOGLYCEMIC DRUGS Active [...] 5 mg tablet 2023-06 00:00: 00 Yes [id number] PAIN 1 tablet EVERY 8 HOURS 1 tablet EVERY 8 HOURS (route: oral) Med Classific ation: Analgesic , Anti-infl ammatory or Antipyret ic tramadol 50 mg tablet 2023-06 00:00: 00 Yes [id number] PAIN 1-2 tablet EVERY 8 HOURS 1-2 tablet EVERY 8 HOURS (route: oral) Med Classific ation: Analgesic , Anti-infl ammatory or Antipyret ic Entresto 24 mg-26 mg tablet 2023-06 00:00: 00 Yes [id number] HTN Per instruc tions TWICE A DAY Per instructio ns TWICE A DAY (route: oral) Med Classific ation: Cardiovas cular Therapy Agents spironolact one 25 mg tablet 2023-06 00:00: 00 Yes [id number] HEART FAILURE Per instruc tions EVERY DAY Per instructio ns EVERY DAY (route: oral) Med Classific ation: Cardiovas cular Therapy Agents acetaminoph en 500 mg tablet 2023-06 00:00: 00 Yes [id number] PAIN 2 tablet 3 TIMES DAILY 2 tablet 3 TIMES DAILY (route: oral) Med Classific ation: Analgesic , Anti-infl ammatory or Antipyret ic aspirin 81 mg tablet,clifton yed release 2023-06 00:00: 00 Yes [id number] DVT PROPHYLAXIS 2 tablet 2 TIMES DAILY 2 tablet 2 TIMES DAILY (route: oral) Med Classific ation: Hematolog ical Agents atorvastati n 80 mg tablet 2023-06 00:00: 00 Yes [id number] CHOLESTEROL 1 tablet DAILY 1 tablet DAILY (route: oral) Med Classific ation: Cardiovas cular Therapy Agents carvedilol 6.25 mg tablet 2023-06 00:00: 00 Yes [id number] HTN 1 tablet 2 TIMES DAILY 1 tablet 2 TIMES DAILY (route: oral) Med Classific ation: Cardiovas cular Therapy Agents Farxiga 10 mg tablet 2023-06 00:00: 00 Yes [id number] WEIGHT LOSS 1 tablet DAILY 1 tablet DAILY (route: oral) Med Classific ation: Endocrine levothyroxi ne 100 mcg capsule 2023-06 00:00: 00 Yes [id number] THYROID 1 capsule DAILY 1 capsule DAILY (route: oral) Med Classific ation: Endocrine Miralax 17 gram oral powder packet 2023-06 00:00: 00 Yes [id number] CONSTIPATIO N 1 packet DAILY 1 packet DAILY (route: oral) Med Classific ation: Gastroint estinal Therapy Agents naproxen 500 mg tablet 2023-06 00:00: 00 Yes [id number] pain 1 tablet 2 TIMES DAILY 1 [...] Planned Date Details Comments Future Scheduled Test PT/PRESS TENDER SMOKE SIGNAL TO PROVIDE GAIT TRAINING FOR IMPROVED MOBILITY AND /OR TO NORMALIZE GAIT PATTERN [code = PT/PRESS TENDER SMOKE SIGNAL TO PROVIDE GAIT TRAINING FOR IMPROVED MOBILITY AND /OR TO NORMALIZE GAIT PATTERN] Future Scheduled Test THERAPEUTI C EXERCISES AND ESTABLISHING A HOME EXERCISE PROGRAM (PT/PRESS TENDER SMOKE SIGNAL) [code = THERAPEUTIC EXERCISES AND ESTABLISHING A HOME EXERCISE PROGRAM (PT/PRESS TENDER SMOKE SIGNAL)] Future Scheduled Test PT/PRESS TENDER SMOKE SIGNAL TO IDENTIFY FALL RISK FACTORS; EDUCATE THE PATIENT/CAREGIVER ON WAYS TO REDUCE FALL RISK FACTORS AND ESTABLISH HOME EXERCISE PROGRAM TO MINIMIZE FALL RISK. MAY TEACH THE PATIENT FLOOR RECOVERY WHEN CLINICALLY APPROPRIATE [code = PT/PRESS TENDER SMOKE SIGNAL TO IDENTIFY FALL RISK FACTORS; EDUCATE THE PATIENT/CAREGIVER ON WAYS TO REDUCE FALL RISK FACTORS AND ESTABLISH HOME EXERCISE PROGRAM TO MINIMIZE FALL RISK. MAY TEACH THE PATIENT FLOOR RECOVERY WHEN CLINICALLY APPROPRIATE] Future Scheduled Test PT/PRESS TENDER SMOKE SIGNAL TO PROVIDE STAIR TRAINING [code = PT/PRESS TENDER SMOKE SIGNAL TO PROVIDE STAIR TRAINING] Future Scheduled Test BED TRANSF ERS (PT/PRESS TENDER SMOKE SIGNAL) [code = BED TRANSFERS (PT/PRESS TENDER SMOKE SIGNAL)] Future Scheduled Test SIT TO/FRO M STAND TRANSFERS (PT/PRESS TENDER SMOKE SIGNAL) [code = SIT TO/FROM STAND TRANSFERS (PT/PRESS TENDER SMOKE SIGNAL)] Future Scheduled Test CHAIR LYLE SFERS (PT/PRESS TENDER SMOKE SIGNAL) [code = CHAIR TRANSFERS (PT/PRESS TENDER SMOKE SIGNAL)] Future Scheduled Test PT / PRESS TENDER SMOKE SIGNAL M AY EDUCATE ON PAIN MANAGEMENT CLINICALLY INDICATED, INCLUDING NON-PHARMACOLOGICAL PAIN REDUCTION TECHNIQUES [code = PT / PRESS TENDER SMOKE SIGNAL MAY EDUCATE ON PAIN MANAGEMENT CLINICALLY INDICATED, INCLUDING NON-PHARMACOLOGICAL PAIN REDUCTION TECHNIQUES ] Future Scheduled Test AGENCY MAY PERFORM A RESUMPTION OF CARE VISIT FOLLOWING ANY HOSPITAL ADMISSION. PT TO EVALUATE, OBSERVE / ASSESS, AND MONITOR, PRESS TENDER SMOKE SIGNAL TO OBSERVE AND MONITOR, PROVIDE SKILLED THERAPEUTIC INTERVENTION, ACTIVITY, EDUCATION, AND TRAINING TO ADDRESS; [code = AGENCY MAY PERFORM A RESUMPTION OF CARE VISIT FOLLOWING ANY HOSPITAL ADMISSION. PT TO EVALUATE, OBSERVE / ASSESS, AND MONITOR, PRESS TENDER SMOKE SIGNAL TO OBSERVE AND MONITOR, PROVIDE SKILLED THERAPEUTIC INTERVENTION, ACTIVITY, EDUCATION, AND TRAINING TO ADDRESS;] Future Scheduled Test NEUROMUSCU LAR RE-EDUCATION / BALANCE / POSTURAL CONTROL (PT) [code = NEUROMUSCULAR RE-EDUCATION / BALANCE / POSTURAL CONTROL (PT)] Future Scheduled Test PT / PRESS TENDER SMOKE SIGNAL T O EDUCATE ON HIP REPLACEMENT SELF-MANAGEMENT [code = PT / PRESS TENDER SMOKE SIGNAL TO EDUCATE ON HIP REPLACEMENT SELF-MANAGEMENT] Future Scheduled Test PT TO ASSE SS / PRESS TENDER SMOKE SIGNAL TO MONITOR FOR HEART FAILURE EXACERBATION AND RECORD PATIENT REPORTED WEIGHT, AND NOTIFY THE PHYSICIAN AND/OR THE RN CLINICAL TRUCK SALES REPRESENTATIVE FOR PHYSICIAN NOTIFICATION OF HF EXACERBATION (2LB WEIGHT GAIN IN 1 DAY, 5LBS IN A WEEK OR 5 LBS OVER BASELINE; INCREASED SOB, EDEMA, NEEDING MORE PILLOWS AT NIGHT, CRACKLES IN BASIS OF THE LUNGS OR PMI SHIFT) [code = PT TO ASSESS / PRESS TENDER SMOKE SIGNAL TO MONITOR FOR HEART FAILURE EXACERBATION AND RECORD PATIENT REPORTED WEIGHT, AND NOTIFY THE PHYSICIAN AND/OR THE RN CLINICAL TRUCK SALES REPRESENTATIVE FOR PHYSICIAN NOTIFICATION OF HF EXACERBATION (2LB WEIGHT GAIN IN 1 DAY, 5LBS IN A WEEK OR 5 LBS OVER BASELINE; INCREASED SOB, EDEMA, NEEDING MORE PILLOWS AT NIGHT, CRACKLES IN BASIS OF THE LUNGS OR PMI SHIFT)] Future Scheduled Test PT / PRESS TENDER SMOKE SIGNAL T O OBSERVE WOUND/INCISION AND/OR INTACT DRESSING ON L HIP AND REPORT EARLY SIGNS AND SYMPTOMS OF WOUND DETERIORATION, COMPLICATIONS, OR INFECTION TO PHYSICIAN AND/OR THE RN CLINICAL TRUCK SALES REPRESENTATIVE FOR PHYSICIAN NOTIFICATION. DRESSING TO BE REMOVED BY CAREGIVER POST OP DAY 7. [code = PT / PRESS TENDER SMOKE SIGNAL TO OBSERVE WOUND/INCISION AND/OR INTACT DRESSING ON L HIP AND REPORT EARLY SIGNS AND SYMPTOMS OF WOUND DETERIORATION, COMPLICATIONS, OR INFECTION TO PHYSICIAN AND/OR THE RN CLINICAL TRUCK SALES REPRESENTATIVE FOR PHYSICIAN NOTIFICATION. DRESSING TO BE REMOVED [...] End Date/Time Encounter Type Admission Type Attending [facility] Care Department Encounter ID Discharge Date Discharge Status Discharge Condition Discharge Reason Percent Goals Met 2024-05-04 00:00:00 2024-07-02 00:00:00 Outpatient NEW ADMISSION JAKE LOPEZ [facility] [id number] 29.41
== END 2024-06-24 11:14 | disposition home or self-care (01) ==
LOC: HO.HAP 11:13
PROVIDERS: Visit Provider Internal Medicine
DX: Z46.1 Encounter for fitting and adjustment of hearing aid (principal); H90.3 Sensorineural hearing loss, bilateral
CPT/HCPCS: V5266

== ENCOUNTER 2024-09-16 11:39 | Outpatient (REF) | payer MEDICARE, MEDICAID, SELFPAY ==
--- OUTSIDE RECORDS SUMMARY | 2024-09-16 14:14 | XMS_ITS | Encounter Summary ---
Author Organization [facility] Address [address] [place] [address] Care Team Providers Care Orthopedic Surgeon Name Role Phone Mechelle Ortega MD Primary Care Provider [phone] Encounter Details Date Type Department Care Team (Late Contact Info) Description 09/16/2024 2:10 AM EDT Ancillary Procedure [facility] Cardiology [facility] [address] [facility] [address] [place] [address] Arrived Social History Tobacco Use Types Packs/Day Years Used Date Smoking Tobacco: Never Smokeless Tobacco: Never Alcohol Use Standard Drinks/Week Comments Not Currently 0 (1 standard drink = 0.6 oz pur e alcohol) Comments Unknown Sex and Gender Information Value Date Recorded Sex Assigned at Not on file Legal Sex Female 1:08 AM EST Gender Identity Not on file Sexual Orientation Not on file documented as of this encounter Plan of Treatment Upcoming Encounters Date Type Department Care Team (Late Contact Info) Description 09/23/2024 3:00 PM EDT Office Visit [facility] Cardiology [facility] [address] [facility] [address] [place] [address] Chelita Todd MD [address] [place] [address] 07/12/2025 1:00 PM EST Ancillary Procedure [facility] Cardiology [facility] [address] [facility] [address] [place] [id number] documented as of this encounter Procedures Procedure Name Priority Date/Time Associated Diagnosis Comments CARDIAC DEVICE CHECK- REMOTE- MURJ Routine 09/16/2024 2:08 AM EDT documented in this encounter Results * Cardiac device check - Remote- MURJ (09/16/2024 2:08 AM EDT) Date Time Interrogation Session [id number] CV DEVICE CHECK Type Interrogation Session Remote CV DEVICE CHECK Implantable Pulse Generator Embalmer Assistant MDT CV DEVICE CHECK Implantable Pulse Generator Type CONSTRUCTION LABORER-P CV DEVICE CHECK Implantable Pulse Generator Model Desire Quad CONSTRUCTION LABORER-P [id number] CV DEVICE CHECK Implantable Pulse Generator Serial Number [id number] CV DEVICE CHECK Implantable Pulse Generator Implant Date 20220531 CV DEVICE CHECK Battery Remaining Longevity 120.0 CV DEVICE CHECK Battery Voltage 3.000 CV D EVICE CHECK Battery JETTING MACHINE OPERATOR Trigger 2.595 CV DEVICE CHECK Battery Status Middle of Service CV DEVICE CHECK Yakov Statistic RA Percent Paced 70.38 CV DEVICE CHECK Yakov Statistic RV Percent Paced 17.59 CV DEVICE CHECK CONSTRUCTION LABORER Statistic LV Percent Paced 97.79 CV DEVICE CHECK CONSTRUCTION LABORER Statistic CONSTRUCTION LABORER Percent Paced 17.55 CV DEVICE CHECK Atrial Tachy Statistic AT/AF [place] Percent 0.00 CV DEVICE CHECK Lead Channel Sensing Intrinsic Amplitude 4.125 CV DEVICE CHECK Lead Channel Setting Sensing Sensitivity 0.60 CV DEVICE CHECK Lead Channel Impedance Value 399 CV DEVICE CHECK Lead Channel Pacing Threshold Amplitude 0.875 CV DEVICE CHECK Lead Channel Pacing Threshold Pulse Width 0.4 CV DEVICE CHECK Lead Channel RA Pacing Threshold Date 2024-09-12 CV DEVICE CHECK Lead Channel Setting Pacing Amplitude 1.750 CV DEVICE CHECK Lead Channel Setting Pacing Pulse Width 0.4 CV DEVICE CHECK Lead Channel Sensing Intrinsic Amplitude 18.375 CV DEVICE CHECK Lead Channel Setting Sensing Sensitivity 0.90 CV DEVICE CHECK Lead Channel Impedance Value 437 CV DEVICE CHECK Lead Channel Pacing Threshold Amplitude 0.875 CV DEVICE CHECK Lead Channel Pacing Threshold Pulse Width 0.4 CV DEVICE CHECK Lead Channel RV Pacing Threshold Date 2024-09-12 CV DEVICE CHECK Lead Channel Setting Pacing Amplitude 2.000 CV DEVICE CHECK Lead Channel Setting Pacing Pulse Width 0.4 CV DEVICE CHECK Lead Channel Impedance Value 475 CV DEVICE CHECK Lead Channel Pacing Threshold Amplitude 0.875 CV DEVICE CHECK Lead Channel Pacing Threshold Pulse Width 0.4 CV DEVICE CHECK Lead Channel Pacing Threshold Date 2024-09-12 CV DEVICE CHECK Lead Channel Setting Pacing Amplitude 1.500 CV DEVICE CHECK Lead Channel Setting Pacing Pulse Width 0.4 CV DEVICE CHECK Yakov Setting Mode (NBG Code) DDD CV DEVICE CHECK Ventricular chambers paced during CONSTRUCTION LABORER pacing. LVOnly CV DEVICE CHECK Yakov Setting Lower Rate Limit 60 CV DEVICE CHECK Yakov Setting AT Mode Switch Rate 171 CV DEVICE CHECK Yakov Setting Maximum Tracking Rate 130 CV DEVICE CHECK Yakov Setting Maximum Sensor Rate 120 CV DEVICE CHECK Yakov Setting PAV Delay 160 CV DEVICE CHECK Yakov Setting DENISA Delay 90 CV DEVICE CHECK CONSTRUCTION LABORER LV-RV Delay 40 CV D EVICE CHECK Zone Setting Type Category AT/AF CV DEVICE CHECK Rate 171 CV DEVICE CHECK Therapies Some Rx Off CV DEVIC E CHECK Zone Setting Status Monitor CV DEVICE CHECK Zone ID 2 CV DEVICE CHECK Zone Setting Type Category VT CV DEVICE CHECK Rate 150 CV DEVICE CHECK Zone Setting Status ENABLED CV DEVICE CHECK Zone ID 6 CV DEVICE CHECK Date of Service 2024-10-22 CV DEVICE CHECK Anatomical Region Laterality Modality Device Interroga tion 09/12/2024 7:36 AM EDT Impressions 09/15/2024 10:52 AM EDT Heart Failure Diagnostic: Stable * Heart failure diagnostics assessed through the device * Status: Stable * No overt HF present Narrative Procedure Note Deshaun Esqueda MD - 09/16/2024 IMPRESSION: Heart Failure Diagnostic: Stable * Heart failure diagnostics assessed through the device * Status: Stable * No overt HF present us Deshaun Esqueda MD CV IMPLANTABLE CARDIAC DEV ICE PROCEDURES Final Result documented in this encounter Visit Diagnoses Not on filedocumented in this encounter Care Teams Orthopedic Surgeon Relationship Specialty Start Date End Date Mechelle Ortega MD [address] [facility] [address] [place] [id number] PCP - General Internal Medicine 04/30/24 documented as of this encounter
--- OUTSIDE RECORDS SUMMARY | 2024-09-16 14:14 | XMS_ITS | Data Portability ---
Author Organization [place] - [facility], Allergy Address [address] [address] Care Team Providers Care Hi Lift Operator Name Role Phone SAMI THOMASON Primary Care Provider Assessment Encounter Date Assessment Date Assessment LastModified by Organization Details LastModified Time 01/02/2024 01/02/2024 48-year-old female with history of [...] debridement, or sooner with any worsening symptoms. [email or web address] Not available 01/02/2024 12:55:48 02/06/2024 02/06/2024 48-year-old female with history of chronic OE, recurrent cerumen impactions, and hearing loss using amplification presents for routine ear cleaning. Cerumen impaction removed bilaterally. Infection has resolved. Resume alcohol/vinegar mixture in ears a few times per week. She will follow-up in 6 weeks for routine debridement, or sooner with any worsening symptoms. [email or web address] Not available 02/06/2024 15:55:49 03/12/2024 03/12/2024 49-year-old [...] debridement, or sooner with any worsening symptoms. [email or web address] Not available 04/23/2024 11:06:14 07/22/2024 07/22/2024 49-year-old female with history of chronic OE, recurrent cerumen impactions, and hearing loss using amplification presents for routine ear cleaning. Cerumen impaction removed bilaterally. Otologic exam is stable. She will follow-up in 6 weeks for routine debridement, or sooner with any worsening symptoms. [email or web address] Not available 07/22/2024 11:37:42 Plan of Treatment Reminders Order Date Submit Date Provider Last Modified By Organization Details Last Modified Time Details Appointments Establish ed 15 2024 11:30A M BERNICE SPEARS PA-C Not available Not available Not available Establish ed 15 2024 11:30A M BERNICE SPEARS PA-C Not available Not available Not available Lab None recorded. Referral None recorded. Procedures None recorded. Surgeries None recorded. Imaging None recorded. Medication Orders TobraDex 0.3 %-0.1 % eye drops,isreal haddad [address] [place] [address]/Ph[facility] #[id number], [address] [place] [address], [place], [address], 03/12/2024 11:55:33 Patient TargetsNo targets recorded. Patient InstructionsNo instructions recorded. Reason for Referral None Reported. Results Created Date Observation Date Name Description Value Unit Range Abnormal Flag Note LastModifiedBy Organization Detail LastModifiedTime 02/05/2012/05/2018 imagi ng/di agnos tic resul t No observ ation record ed. [email or web address] Not Available 00:58:53 02/05/2012/05/2018 imagi ng/di agnos tic resul t No observ ation record ed. [email or web address] Not Available 00:59:02 02/05/20 24 12/05/2018 audio gram No observ ation record ed. [email or web address] Not Available 01:02:47 Result Notes None recorded. Problems Name Problem SNOMED Code Status Onset Date Resolution Date Notes Provider Name and Address Organization Details Recorded Time Otorrhea of right ear [id number] 63902 Active 2022 Otorrhea , right ear; Note: Date Diagnose d: 3 11:49 AM (H92.13) Not Available [facility] 4 02:53:46 Mixed conducti ve and sensorin eural hearing loss, bilatera l 753862981 Active 2014 Mixed hearing loss, bilatera l; Note: Date Diagnose d: 5 12:14 PM (389.22) Mixed conducti ve and sensorin eural hearing loss, bilatera l; Note: Date Diagnose d: 5 12:14 PM (H90.6) [mapped from ICD9 code: 389.22] Not Available [facility] 4 02:53:46 Sensorin eural hearing loss in right ear 40964400666 100 Active 2018 Sensorin eural hearing loss, unilater al, right ear, with restrict ed hearing on the contrala teral side; Note: Date Diagnose d: 9 4:51 PM (H90.A21 ) Not Available [facility] 4 02:53:45 Bilatera l diffuse otitis externa 73573241049 97532 Completed 201801/17/2024 Diffuse otitis externa, bilatera l; Note: Date Diagnose d: 11/20/2018 2:38 PM (H60.313 ) BERNICE SPEARS PA-C [address] [place] [address], [place], [address] , [facility] - [facility] 4 15:19:29 Candidal otitis externa 01366885 Active 2014 Candidia sis: Candidal otitis externa; Note: Date Diagnose d: 5 12:14 PM (112.82) [mapped from ICD9 code: 389.22] Candid al otitis externa; Note: Date Diagnose d: 5 12:15 PM (B37.84) [mapped from ICD9 code: 112.82] Not Available [facility] 4 02:53:44 Impacted cerumen of bilatera l ears 72285510183 82526 Active 2014 Impacted cerumen, bilatera l; Note: Date Diagnose d: 5 2:31 PM (H61.23) [mapped from ICD9 code: 380.4] Not Available [facility] 4 02:53:46 Otorrhea of bilatera l ears 72360728072 34456 Completed 202101/17/2024 Otorrhea , bilatera l; Note: Date Diagnose d: 03/27/20 22 3:43 PM (H92.13) Not Available [facility] 4 02:53:48 Impacted cerumen 00637864 Active 2014 Impacted cerumen; CMS Risk: low risk CMS Treatmen t: new problem (to examiner ): no addition al workup planned Not Available [facility] 4 02:53:45 Impacted cerumen in left ear 38718666184 18834 Active 2019 Impacted cerumen, left ear; Note: Date Diagnose d: 11/17/2019 1:33 PM (H61.22) Not Available [facility] 4 02:53:44 Chronic mycotic otitis externa 669574279 Active 2014 Chronic mycotic otitis externa; Note: Date Diagnose d: 5 2:29 PM (380.15) Not Available [facility] 4 02:53:43 Diffuse otitis externa 79410950 Active 2019 Diffuse otitis externa, right ear; Note: Date Diagnose d: 11/17/2019 1:33 PM (H60.311 ) ; Start Date : 11/17/19 20 Diffu se otitis externa, left ear; Note: Date Diagnose d: 12/22/2019 1:58 PM (H60.312 ) Not Available [facility] 4 02:53:47 Impacted cerumen in right ear 12706205042 08844 Active 2022 Impacted cerumen, right ear; Note: Date Diagnose d: 3 1:57 PM (H61.21) Not Available [facility] 4 02:53:45 Mixed conducti ve and sensorin eural hearing loss of left ear 39364726197 107 Active 2018 Mixed conducti ve and sensorin eural hearing loss, unilater al, left ear with restrict ed hearing on the contrala teral side; Note: Date Diagnose d: 9 4:51 PM (H90.A32 ) Not Available [facility] 4 02:53:47 Bilatera l diffuse otitis externa 68600572241 88560 Active 2023 Diffuse otitis externa, bilatera l; Note: Date Diagnose d: 11/20/2018 2:38 PM (H60.313 ) BERNICE SPEARS PA-C [address] [facility],[address], [address] , [place] - [facility] 4 15:19:29 Problem Notes None recorded. Procedures Surgical History Date Name Laterality Status Provider Name and Address Organization Details Recorded Time 5 Cerumen removal without microscope bilat completed BERNICE SPEARS PA-C 100 [facility],[address], [address], [place] - [facility] 07/22/2024 11:37:24 4 Cerumen removal without microscope bilat completed BERNICE SPEARS PA-C 100 [facility],[address], [address], [place] - [facility] 04/23/2024 11:04:35 4 Cerumen removal without microscope bilat completed BERNICE SPEARS PA-C 100 [facility],[address], [address], [place] - [facility] 03/12/2024 11:07:32 4 Cerumen removal without microscope bilat completed BERNICE SPEARS PA-C 100 [facility],[place] [address], [place], [address], [facility] 02/06/2024 15:55:18 4 Cerumen removal without microscope bilat completed BERNICE SPEARS PA-C 100 [facility] [address], [place], [address], [facility] 01/02/2024 12:54:36 4 Cerumen removal without microscope bilat completed BERNICE SPEARS PA-C 100 [facility],[place] [address], [place], [address], [facility] 11/21/2023 11:16:14 Imaging Results Imaging Date Name Status LastModified by Organiz ation Details LastModified Time 12/05/2018 imaging/diagno stic result completed Information not available 02/05/2024 00:58:53 12/05/2018 imaging/diagno stic result completed Information not available 02/05/2024 00:59:02 12/05/2018 audiogram completed Information not available 02/05/2024 01:02:47 Procedure Notes None recorded. Medical Equipment None Reported. Allergies Allergen ID Allergen Name Allergen Category Reaction Reaction Severity Criticality Documentation Date Start Date Code Code System Note Provider Name and Address Organization Details Recorded Time [id number] penicilli n V potassium medicatio n other Not available Not available 10/29/2023 5 RxNorm React ion: unkno wn, unspe cifie d;; Not Available [facility] 01:15:41 Medications Name Sig Start Date Stop Date Status Note LastModified by Organization Details LastModified Time Santyl 250 unit/gram topical ointment APPLY A NICKEL THICKNES S AMOUNT TO CLEANSED AFFECTED AREA BY TOPICAL ROUTE ONCE DAILY active Not Available Not Available No t Available atorvasta tin 80 mg tablet TAKE 1 TABLET BY MOUTH EVERYDAY AT BEDTIME active Not Available Not Available No t Available carvedilo l 6.25 mg tablet TAKE 1 TABLET BY MOUTH TWICE A DAY WITH MEALS active Not Available Not Available No t Available lisinopri l 20 mg tablet 09/12 completed Medicati on ID: [id number] Du ration Value: 30 Brand Name: lisinopr il Send Method: E-Prescr ibed Sub s Allowed: subs OK Speci al Instruct ion: TAKE 1 TABLET BY MOUTH EVERY DAY Medi cationGe nericNam e: lisinopr il Not Available Not Available Not Available Ciloxan 0.3 % eye drops 03/08 completed Medicati on ID: [id number] Pr escribed By Name: NUBIA Sweet nd Name: Ciloxan Send Method: E-Prescr ibed Sub s Allowed: subs OK Speci al Instruct ion: Instill 4 drops twice a day into affected ear for 7 days Med icationG enericNa me: Ciloxan Not Available Not Available Not Available tramadol 50 mg tablet TAKE 1 TABLET BY MOUTH EVERY 4 HOURS NEEDED FOR MODERATE PAIN active Not Available Not Available No t Available spironola ctone 25 mg tablet TAKE [...] mcg tablet 2020 active Medicati on ID: [id number] B rand Name: levothyr oxine Se nd Method: E-Prescr ibed Sub s Allowed: subs OK [facility] levothyr [facility]ine Not Available Not Available Not Available sulfaceta mide sodium 10 % eye drops 2020 active Medicati on ID: [id number] D uration Value: 14 Brand Name: sulfacet amide sodium S end Method: E-Prescr ibed Sub s Allowed: subs OK Speci al Instruct ion: 4 drops to affected ear BID x 14 days Med icationG enericNa me: sulfacet amide sodium Not Available Not Available Not Available levothyro xine 50 mcg tablet 11/19 completed Medicati on ID: [id number] Du ration Value: 30 Reason: () Brand Name: levothyr oxine Se nd Method: E-Prescr ibed Sub s Allowed: subs OK Speci al Instruct ion: TAKE 1 TABLET BY MOUTH EVERY DAY Medi cationGe nericNam e: levothyr oxine Not Available Not Available Not Available simvastat in 20 mg tablet 09/12 completed Medicati on ID: [id number] D uration Value: 30 Brand Name: simvasta tin Send Method: E-Prescr ibed Sub s Allowed: subs OK Speci al Instruct ion: TAKE 1 TABLET BY MOUTH EVERY DAY Medi cationGe nericNam e: simvasta tin Not Available Not Available Not Available erythromy bogdan 5 mg/gram (0.5 %) eye ointment APPLY A SMALL AMOUNT TO THE EYELID MARGIN OF BOTH EYES AT BEDTIME FOR TWO WEEKS. active Not Available Not Available No t Available clotrimaz ole-betam ethasone 1 %-0.05 % topical cream Apply 1 a small amount twice a day 2022 active Medicati on ID: [id number] D uration Value: 14 Brand Name: clotrima [...] Not Available Not Available No t Available furosemid e 20 mg tablet TAKE 1 TABLET BY MOUTH DAILY NEEDED AND DIRECTED BY CARDIOLO GIST active Not Available Not Available No t Available tobramyci n 0.3 %-dexamet hasone 0.1 % eye drops,isreal pension INSTILL 4 DROPS INTO BOTH EARS TWICE A DAY FOR 14 DAYS active Not Available Not Available No t Available oxycodone 5 mg tablet TAKE 1 TABLET BY MOUTH EVERY 8 HOURS NEEDED FOR BREAKTHR OUGH PAIN active Not Available Not Available No t [...] a day 2023 active Medicati on ID: [id number] D uration Value: 14 Brand Name: Ciprodex [...] Updated DateTime 01/02/2024 144.78 cm 27 kg/m2 62194.05 g Emily Mendoza [place] - [facility] 01/02/2024 11:08:50 Date Recorded Body height Body mass index (BMI) Body weight Provider Name and Address Organization Details Last Updated DateTime 02/06/2024 144.78 cm 27 kg/m2 71341.05 g Emily Mendoza [place] - [facility] 02/06/2024 15:07:39 Date Recorded Body height Body mass index (BMI) Body weight Provider Name and Address Organization Details Last Updated DateTime 03/12/2024 144.78 cm 27 kg/m2 45518.05 g Terrance Dennis [place] - [facility] 03/12/2024 11:28:56 Date Recorded Body height Body mass index (BMI) Body weight Provider Name and Address Organization Details Last Updated DateTime 07/22/2024 144.78 cm 27 kg/m2 10457.05 g Emily Mendoza [place] - [facility] 07/22/2024 11:44:27 Social History None recorded. Functional Status None recorded. Mental Status None recorded. Family History Nothing Reported. Medical History No medical history recorded. Gynecological HistoryNo gynecological history recorded. Obstetrics History GPAL:G 0 P 0 0 0 0 Past Encounters Encounter ID Performer Location Encounter Start Date Encounter Closed Date Diagnosis/Indication Diagnosis SNOMED-CT Code Diagnosis ICD10 Code Diagnosis Note [id number] MIRI CONTRERAS MD [facility] [address] [address] 11/21/2023 11:07:48 11/21/2023 11:40:06 Impacted cerumen of bilateral ears 3022292933 213589 H61.23 [id number] MIRI CONTRERAS MD [facility] [address] [address] 01/02/2024 11:03:40 01/02/2024 11:36:55 Bilateral diffuse otitis externa 2610009448 244052 H60.313 Impacted c erumen of bilateral ears 4294255121 632420 H61.23 [id number] JAKE GRANADOS MD [facility] [address] [address] 02/06/2024 14:53:34 02/06/2024 15:32:25 Bilateral diffuse otitis externa 8451643320 618178 H60.313 Impacted c erumen of bilateral ears 3683741242 696444 H61.23 [id number] MANINDER JAY MD [facility] [address] [address] 03/12/2024 11:06:52 03/12/2024 11:56:11 Impacted cerumen of bilateral ears 4975441868 866691 H61.23 Bilateral diffuse otitis externa 1682854547 775031 H60.313 [id number] MIRI CONTRERAS MD [facility] [address] [address] 04/23/2024 10:17:05 04/23/2024 10:54:32 Impacted cerumen of bilateral ears 1087908714 646712 H61.23 [id number] JAKE GRANADOS MD [facility] [address] [address] 07/22/2024 11:25:27 07/22/2024 11:52:20 Impacted cerumen of bilateral ears 2450514447 133659 H61.23 Health Concerns Section Related Observation LastModified by Organization Detai ls LastModified Time None Recorded Concern Status LastModified by Organization Details LastModified Time None Recorded Advance Directives Directive None Recorded Payers Encounter Date Sequence Insurance Name Policy Number Policy Martinez Covered Member ID Martinez Member ID Guarantor Name 01/02/2024 2 [place] Thais M Mortell [id number] Thais M Mortell 01/02/2024 1 [place] [employer] Thais M Mortell [id number] Thais M Mortell 02/06/2024 2 [place] Thais M Mortell [id number] Thais M Mortell 02/06/2024 1 [place] Thais M Mortell [id number] Thais M Mortell 03/12/2024 2 [place] Thais M Mortell [id number] Thais M Mortell 03/12/2024 1 [place] [employer] Thais M Mortell [id number] Thais M Mortell 04/23/2024 2 [place] Thais M Mortell [id number] Thais M Mortell 04/23/2024 1 [place] Thais M Mortell [id number] Thais M Mortell 07/22/2024 2 [place] Thais M Mortell [id number] Thais M Mortell 07/22/2024 1 [place] [employer] [place] Thais M Mortell [id number] Thais M Mortell Notes Date Note Type Note Provider Name and Address Organization Details Recorded Time 01/02/2024 text/html 48-year-old femdai vidales with history of chronic OE, recurrent cerumen impactions, and hearing loss using amplification presents for routine ear cleaning. Reports moisture and yellow drainage of the ears, R>L. No otalgia. Accompanied by mom. MIRI CONTRERAS MD [address] [place] [address], [address], [facility] - [facility] 01/03/2024 07:34:54 02/06/2024 text/html 48-year-old fema le with history of chronic OE, recurrent cerumen impactions, and hearing loss using amplification presents for routine ear cleaning. Used Tobradex. Denies otalgia and otorrhea. Accompanied by mom. JAKE GRANADOS MD 100 [facility],[address], [address], [facility] - [facility] 02/06/2024 16:53:26 03/12/2024 text/html 49-year-old fema le with history of chronic OE, recurrent cerumen impactions, and hearing loss using amplification presents for routine ear cleaning. Denies otalgia and otorrhea. Accompanied by mom. MANINDER JAY MD 100 [facility],[address], [address], [facility] - [facility] 03/12/2024 12:06:04 04/23/2024 text/html 49-year-old fema le with history of chronic OE, recurrent cerumen impactions, and hearing loss using amplification presents for routine ear cleaning. Used Tobradex as recommended at previous visit. Denies otalgia and otorrhea. Accompanied by mom. MIRI CONTRERAS MD [address] [facility],[address], [address], [facility] - [facility] 04/24/2024 13:30:32 07/22/2024 text/html 49-year-old fema le with history of chronic OE, recurrent cerumen impactions, and hearing loss using amplification presents for routine ear cleaning. Denies otalgia and otorrhea. Accompanied by mom. JAKE GRANADOS MD [address] [facility],[address], [address], [facility] - [facility] 07/22/2024 17:28:41 OBGyn Episode No OBEpisode recorded.
--- OUTSIDE RECORDS SUMMARY | 2024-09-16 14:15 | XMS_ITS | Clinical Summary ---
Author Organization [facility] Address [address] [place], [place] [id number] Care Team Providers Care Canvas Shrinker Name Role Phone Michael Manjarrez MD Primary Care Provider [phone] Allergies Active Allergy Reactions Criticality Noted Date Comments Penicillins 03/03/2018 Medications Medication Sig Dispensed Refills Start Date End Date Status lisinopril (PRINIVIL,ZESTRIL) tablet 20 mg Take 20 mg by mouth daily. 0 Active levothyroxine (SYNTHROID, LEVOXYL) tablet 75 mcg Take 75 mcg by mouth every morning on an empty stomach. 0 Active simvastatin (ZOCOR) tablet 20 mg Take 20 mg by mouth every night at bedtime. 0 Active aspirin EC 81 MG tablet Take 81 mg by mouth daily. 0 Active Naproxen Sodium (ALEVE) 220 MG CAPS Take by mouth. 0 Active Multiple Vitamins-Minerals (MARCELLUS MULTIVITAMIN PO) Take by mouth. 0 Acti ve Active Problems No known active problems Social History Tobacco Use Types Packs/Day Years Used Date Smoking Tobacco: Never Assessed Sex and Gender Information Value Date Recorded Sex Assigned at Not on file Gender Identity Not on file Sexual Orientation Not on file Last Filed Vital Signs Vital Sign Reading Time Taken Comments Blood Pressure 133/62 03/03/2018 2:09 PM EDT Pulse 82 03/03/2018 2:09 PM EDT Temperature 36.6 ??C (97.8 ??F) 03/03/2018 2:09 PM ED T Respiratory Rate - - Oxygen Saturation - - Inhaled Oxygen Concentration - - Weight 66.2 kg (146 lb) 03/03/2018 2:09 PM EDT Height 142.2 cm (4' 8 ) 03/03/2018 2:09 PM EDT Body Mass Index 32.73 03/03/2018 2:09 PM EDT Plan of Treatment Health Maintenance Due Date Last Done Comments Hepatitis B Vaccines (1 of 3 - 3-dose series) 1976 Hepatitis C Screening 1976 COVID-19 Vaccine (#1) 1976 Depression Screening 1988 Preventative Health Evaluation 01/28/1994 DTap / Tdap / Td (1 - Tdap) 01/28/1995 Cervical Cancer Screening (P ap Smear) 01/28/1997 Colon Cancer Screening (Colonoscopy) 01/28/2021 Influenza Vaccine (#1) 2024 Pneumococcal Vaccine Aged Out No long er eligible based on patient's age to complete this topic RSV Ped < 20 months Aged Out No longe r eligible based on patient's age to complete this topic Care Teams Canvas Shrinker Relationship Specialty Start Date End Date Michael Manjarrez MD [address] [place] [address] PCP - General Internal Medicine 02/28/18
--- OUTSIDE RECORDS SUMMARY | 2024-09-16 14:15 | XMS_ITS | Data Portability ---
Author Organization [facility], [facility] Address [address] [place] [address] Care Team Providers Care [employer] System Installer Name Role Phone ADDI THOMASONANNE Primary Care Provider NAHID AVILA Orthopedic Surgeon Assessment Encounter Date Assessment Date Assessment LastModified by Organization Details LastModified Time 02/25/2024 02/25/2024 Imaging: Imaging ordered, independently reviewed and interpreted by Reginaldo Sanches MD reveals the following findings: XR Hip Left Hip: Two views of the hip were obtained including AP pelvis and groin lateral views. Profoundly severe DJD present. Changes consistent with osteoarthritis including joint space narrowing, subchondral sclerosis, and osteophyte formation. Arthrosis primarily affects the superior compartment. 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 Thais would definitely benefit from hip replacement surgery however this is a much more complicated procedure in her case because of her anatomic variation. I explained to them that most hip replacement implants are based off of normal anatomy and more or less follow the anteversion of the bone when being implanted. In a case like hers with significant rotational profile deformity, this could lead to a severely unstable hip. She would likely need a conical stem prosthesis such as a cone cruz stem which is very difficult to put in from an anterior approach. We discussed seeking care at an academic referral center and I recommended Dr. Nahid Avila to the patient's mother. I advised her that I would be happy to see Thais for routine postoperative care if she does have her surgery performed at an academic center. I have reached out to Dr. Avila's office and will contact Thais's mother when I have heard back from them. She does not have a cell phone or email address but her home phone number is [phone], and her son's email address is [email or web address] Not available 02/25/2024 15:39:47 05/12/2024 05/12/2024 Imaging: Imaging ordered, independently reviewed and interpreted by Reginaldo Sanches MD reveals the following findings: XR Hip Left hip: Two views of the hip were obtained including AP pelvis and groin lateral views. Status post hip surgery: Status post OMARI with no evidence of complication, well fixed, well aligned, and located. There is good jew of leg length and offset without loosening or migration. Impression: Status post left anterior total hip arthroplasty, 2 weeks out Plan: The patient is doing well, continue activities as tolerated. She has a follow-up visit at the end of May with Dr. Hernández and I encouraged her to make this appointment, she may follow up with me as needed for further care of her bilateral hips [email or web address] Not available 05/12/2024 12:46:27 07/09/2024 07/09/2024 Nature of diagnosis was discussed with patient today. At this time symptoms are most consistent with a superficial wound dehiscence. However would like to follow-up with the inflammatory labs to rule out deeper infectious process. Case was discussed with Dr. Sanches who recommended getting her prescription for Santyl. We will follow-up once the labs are complete. All questions were asked and answered. Also recommended keeping the area dry. [email or web address] Not available 07/09/2024 12:13:14 09/03/2024 09/03/2024 I am seeing the patient today under the supervision of Dr. Colon who was available but who did not see the patient. HISTORY OF PRESENT ILLNESS The patient presents today for follow-up, now 2 weeks status post revision left total hip arthroplasty due to recurrent instability. The initial surgery was performed in [place]. Dr. Sanches assumed care for the patient and performed a revision surgery. Overall progressing nicely, happy with results. No significant complaints of pain.No neurovascular changes. Using a walker for ambulation. PAST MEDICAL/SURGICAL HISTORY Reviewed today, otherwise unchanged per intake sheet REVIEW OF SYSTEMS Systemic: No fever and no chills. Cardiovascular: No chest pain or discomfort. Pulmonary: No dyspnea. PHYSICAL FINDINGS General Appearance: Well developed. no acute distress. Musculoskeletal System: Hips: Operative hip was not tender on palpation. No pain was elicited by active motion. No pain was elicited by passive motion. Lower Leg: General/bilateral : Calves of both lower legs were not tender on palpation. Neurological: Oriented to time, place, and person. Gait And Stance: An operative sided antalgic gait was observed with assistive device. Psychiatric: Mood was appropriate to the affect. Skin: Physical examination of the hip reveals the incision to be intact, no erythema or drainage, no evidence of infection. 4/5 strength, normal sensation. Contralateral side shows no warmth, erythema, soft tissue swelling, or effusion. TESTS X-rays ordered, obtained, and reviews today at [facility], two views, reveal maintained alignment of the prosthetic components, no fracture or dislocation,excel lent interface ASSESSMENT Progressing nicely 2 weeks status post revision left total hip arthroplasty. PLAN Reviewed total hip precautions with the patient, who showed good understanding, and will continue to monitor for any evidence of infection. Patient is on ASA 325mg BID for DVT prophlaxis. Follow-up as scheduled for re-evaluation, sooner if there is any complications. Not available 09/03/2024 10:44:41 Plan of Treatment Reminders Order Date Submit Date Provider Last Modified By Organization Details Last Modified Time Details Appointments POST OP 10 2024 02:10P Joe Sanches MD Not available Not available Not available Lab None recorde d. Referral None recorde d. Procedures None recorde d. Surgeries None recorde d. Imaging XR, hip + pelvis, unilate ral, 2 or 3 [facility] - [facility] 025 [email or web address] [facility], [address], [place], [address], 09/03/2024 11:50:05 XR, hip + pelvis, unilate ral, 2 or 3 view 2023 024 [email or web address] [facility] Office, [address], [place], [address], 05/29/2024 15:54:21 XR, hip + pelvis, unilate ral, 2 or 3 view - 2V AB PROTOCO L L HIP 2023 024 [email or web address] [facility] Office, [address], [place], [address], 03/09/2024 10:31:39 Medication Orders tramado l 50 mg tablet 2024 025 [facility] #[id number], [address] [place] [address], [address], 09/03/2024 10:45:40 Patient TargetsNo targets recorded. Patient InstructionsNo instructions recorded. Reason for Referral None Reported. Results Created Date Observation Date Name Description Value Unit Range Abnormal Flag Note LastModifiedBy Organization Detail LastModifiedTime 01/23/20 24 01/23/2024 XR, knee, 4 or more view [email or web address] ?Encry pted=s hAaTro YD8dLq bEUv6g %2BXZw aYqtaq 0bqfl% 2Fg9IQ a4ajBk vP9nXo QUaueC m3YtLR FvZlgJ JJ8mAn HZtai3 3n1864 AC0Kob X2AVqX eUC8mr 84%3D INTERFACE [facility] [address], [place], [address], 01/23/2024 16:07:54 01/23/20 24 01/23/2024 XR, knee, 4 or more view [email or web address] ?Encry pted=s hAaTro YD8dLq bEUv6g %2BXZw aYqtaq 0bqfl% 2Fg9IQ a4ajBk vP9nXo QUaueC m3YtLR FvZlgJ JJ8mAn HZtai3 2c7027 AC0Kob X2AVqX eUC8mr 84%3D INTERFACE [facility] [address], [place], [address], 01/23/2024 16:07:56 09/10/02/25/2024 XR, hip + pelvi s, unila teral , 2 or 3 view [email or web address] ?Encry pted=s hAaTro YD8dLq bEUv6g %2BXZw aYqtaq 0bqfl% 2Fg9IQ a4ajBk vP9nXo QUaueC m3YtLR FvZlgJ JJ8mAn HZtai3 7y1436 AC0Kqa n%2BFU quuKiQ trMwF INTERFACE [facility] [address], [place], [address], 02/25/2024 09:15:59 02/25/2002/25/2024 XR, hip + pelvi s, unila teral , 2 or 3 view [email or web address] ?Encry pted=s hAaTro YD8dLq bEUv6g %2BXZw aYqtaq 0bqfl% 2Fg9IQ a4ajBk vP9nXo QUaueC m3YtLR FvZlgJ JJ8mAn HZtai3 3q2802 AC0Kqa n%2BFU quuKiQ trMwF INTERFACE [facility] [address], [place], [address], 02/25/2024 09:16:01 05/12/20 24 05/12/2024 XR, hip + pelvi s, unila teral , 2 or 3 view [email or web address]:/ [email or web address] ?Encry pted=s hAaTro YD8dLq bEUv6g %2BXZw aYqtaq 0bqfl% 2Fg9IQ a4ajBk vP9nXo QUaueC m3YtLR FvZlgJ JJ8mAn HZtai3 6y6567 AC0Kqa XmNU6e vKiQtr MwF INTERFACE [facility] [address], [place], [address], 05/12/2024 14:21:47 05/12/20 24 05/12/2024 XR, hip + pelvi s, unila teral , 2 or 3 view [email or web address] ?Encry pted=s hAaTro YD8dLq bEUv6g %2BXZw aYqtaq 0bqfl% 2Fg9IQ a4ajBk vP9nXo QUaueC m3YtLR FvZlgJ JJ8mAn HZtai3 2j9800 AC0Kqa XmNU6e vKiQtr MwF INTERFACE [facility] [address], [place], [address], 05/12/2024 14:21:49 07/12/19 25 07/12/2024 XR, hip + pelvi s, bilat eral, 2 view No observ ation record ed. [email or web address] [facility] [address] [facility], [place], [address], 07/13/2024 11:06:30 08/20/19 25 08/19/2024 XR, hip + pelvi s, unila teral , 2 or 3 view No observ ation record ed. [facility] [address], [place], [address], 08/25/2024 08:28:29 08/20/19 25 08/19/2024 XR, hip + pelvi s, unila teral , 2 or 3 view No observ ation record ed. [facility] [address], [place], [address], 08/25/2024 08:27:46 09/04/19 25 09/03/2024 XR, hip + pelvi s, unila teral , 2 or 3 view [email or web address]:/ [email or web address] ?Encry pted=s hAaTro YD8dLq bEUv6g %2BXZw aYqtaq 0bqfl% 2Fg9IQ a4ajBk vP9nXo QUaueC m3YtLR FvZlgJ JJ8mAn HZtai3 4a3167 AC0KqY nmDVKS uKiQtr MwF INTERFACE [facility] [address], [place], [address], 09/03/2024 10:31:46 09/04/19 25 09/03/2024 XR, hip + pelvi s, unila teral , 2 or 3 view [email or web address] ?Encry pted=s hAaTro YD8dLq bEUv6g %2BXZw aYqtaq 0bqfl% 2Fg9IQ a4ajBk vP9nXo QUaueC m3YtLR FvZlgJ JJ8mAn HZtai3 5d0595 AC0KqY nmDVKS uKiQtr MwF INTERFACE [facility] [address], [place], [address], 09/03/2024 10:31:48 Result Notes None recorded. Problems Name Problem SNOMED Code Status Onset Date Resolution Date Notes Provider Name and Address Organization Details Recorded Time Pain of right knee joint 8429732554869 00 Active 2023 RAHEEM pearson [place] - [facility] 4 15:54:53 Prepatella r bursitis of right knee 3231379867488 00 Active 2023 Tom Hollins MD [address], [place], [address] , [facility] - [facility] 4 16:48:46 Postoperat altagracia infection 73651201 Active 2023 RAHEEM pearson [place] - [facility] 4 08:28:00 Pain of left hip joint 7124825276873 00 Active 2023 SALLY pearson [place] - [facility] 4 09:08:10 Osteoarthr itis of left hip joint 5940556752364 08 Active 2023 Reginaldo Sanches MD [address], [place], [address] , [facility] 4 09:47:25 History of total replacemen t of left hip joint 1034724840476 105 Active 2023 Reginaldo Sanches MD [address], [facility] [place], [address] , [facility] 4 12:46:26 History of repair of hip joint 532717990 Active 2024 SALLY pearson, [facility] 5 12:44:34 Open wound with complicati on 27371901 Active 2024 SALLY pearson [facility] 5 12:44:47 Problem Notes None recorded. Procedures Surgical History Date Name Laterality Status Provider Name and Address Organization Details Recorded Time 01/23/2024 Sports Knee Asp & Inj completed Tom Hollins MD [address], [place], [address], [facility] 01/23/2024 16:48:36 Imaging Results Imaging Date Name Status LastModified by Organiz ation Details LastModified Time 01/23/2024 XR, knee, 4 or more view completed INTERFACE [facility] [address] [facility], [place], [address], 01/23/2024 16:07:54 01/23/2024 XR, knee, 4 or more view completed INTERFACE [facility] [address], [place], [address], 01/23/2024 16:07:56 02/25/2024 XR, hip + pelvis, unilateral , 2 or 3 view completed INTERFACE [facility] [address], [place], [address], 02/25/2024 09:15:59 02/25/2024 XR, hip + pelvis, unilateral , 2 or 3 view completed INTERFACE [facility] [address], [place], [address], 02/25/2024 09:16:01 05/12/2024 XR, hip + pelvis, unilateral , 2 or 3 view completed INTERFACE [facility] [address], [place], [address], 05/12/2024 14:21:47 05/12/2024 XR, hip + pelvis, unilateral , 2 or 3 view completed INTERFACE [facility] [address], [place], [address], 05/12/2024 14:21:49 07/12/2024 XR, hip + pelvis, bilateral, 2 view completed [email or web address] [address], [address], 07/13/2024 11:06:30 08/19/2024 XR, hip + pelvis, unilateral , 2 or 3 view completed ULISES [employer] [address], [place], [address], 08/25/2024 08:28:29 08/19/2024 XR, hip + pelvis, unilateral , 2 or 3 view completed ULISES [employer] [facility] [address], [place], [address], 08/25/2024 08:27:46 09/03/2024 XR, hip + pelvis, unilateral , 2 or 3 view completed INTERFACE [employer] [address], [place], [address], 09/03/2024 10:31:46 09/03/2024 XR, hip + pelvis, unilateral , 2 or 3 view completed INTERFACE [employer] [address], [place], [address], 09/03/2024 10:31:48 Procedure Notes None recorded. Medical Equipment None Reported. Allergies Allergen ID Allergen Name Allergen Category Reaction Reaction Severity Criticality Documentation Date Start Date Code Code System Note Provider Name and Address Organization Details Recorded Time 859533 Product containin g penicilli n (product) medicatio n eye redness severe high 11/21/2023 64317 8001 SNOMED Ryanne Art pearson [place] - [facility] 4 08:50:20 Medications Name Sig Start Date Stop Date Status Note LastModified by Organization Details LastModified Time Santyl 250 unit/gram topical ointment APPLY A NICKEL THICKNESS AMOUNT TO CLEANSED AFFECTED AREA BY TOPICAL ROUTE ONCE DAILY active Not Available Not Available No t Available atorvastati n 80 mg tablet TAKE 1 TABLET BY MOUTH EVERYDAY AT BEDTIME active Not Available Not Available No t Available carvedilol 6.25 mg tablet TAKE 1 TABLET BY MOUTH TWICE A DAY WITH MEALS active Not Available Not Available No t Available tramadol 50 mg tablet TAKE 1 TABLET BY MOUTH EVERY 6 HOURS AFTER MEALS active Not Available Not Available No t Available spironolact one 25 mg tablet TAKE 1 TABLET BY MOUTH EVERY DAY active Not Available Not Available No t Available carvedilol 3.125 mg tablet PLEASE SEE ATTACHED FOR DETAILED DIRECTION S 02/24 completed Not Available Not Available Not Available levothyroxi ne 100 mcg tablet TAKE 1 TABLET BY MOUTH EVERY DAY active Not Available Not Available No t Available pantoprazol e 40 mg tablet,clifton yed release TAKE 1 TABLET BY MOUTH EVERY DAY. 09/03 completed Not Available Not Available Not Available erythromyci n 5 mg/gram (0.5 %) eye ointment APPLY A SMALL AMOUNT TO THE EYELID MARGIN OF BOTH EYES AT BEDTIME FOR TWO WEEKS. active Not Available Not Available No t Available clotrimazol e-betametha sone 1 %-0.05 % topical cream APPLY 1 A SMALL AMOUNT TOP TWICE A DAY APPLY WITH FINGERTIP TO EXTERNAL EAR TWICE A DAY FOR 2 WEEKS 02/24 completed Not Available Not Available Not Available polymyxin B sulfate 10,000 unit-trimet hoprim 1 mg/mL eye drops INSTILL 1 DROP INTO LEFT EYE BY OPHTHALMI C ROUTE EVERY 6 HOURS FOR 7 DAYS 02/24 completed Not Available Not Available Not Available clotrimazol e 1 % topical solution APPLY 4 DROPS INTO THE AFFECTED EAR TWICE A DAY X 2 WEEKS 02/24 completed Not Available Not Available Not Available furosemide 20 mg tablet TAKE 1 TABLET BY MOUTH DAILY NEEDED AND DIRECTED BY CARDIOLOG IST active Not Available Not Available No t Available tobramycin 0.3 %-dexametha sone 0.1 % eye drops,suspe nsion INSTILL 4 DROPS INTO BOTH EARS TWICE A DAY FOR 14 DAYS active Not Available Not Available No t Available oxycodone 5 mg tablet TAKE 1 TABLET BY MOUTH EVERY 4 HOURS NEEDED FOR SEVERE PAIN. active Not Available Not Available No t Available azithromyci n 500 mg tablet TAKE 1 TABLET BY MOUTH ONCE FOR 1 DOSE. TAKE 30-60MIN PRIOR TO DENTAL PROCEDURE 02/24 completed Not Available Not Available Not Available moxifloxaci n 0.5 % eye drops INSTILL ONE DROP INTO THE RIGHTY EYE 3 TIMES A DAY 02/24 completed Not Available Not Available Not Available Brilinta 90 mg tablet TAKE 1 TABLET BY MOUTH TWICE A DAY 02/24 completed Not Available Not Available Not Available Farxiga 10 mg tablet TAKE 1 TABLET BY MOUTH EVERY DAY active Not Available Not Available No t Available Entresto 97 mg-103 mg tablet TAKE 1 TABLET BY MOUTH TWICE A DAY 02/24 completed Not Available Not Available Not Available Entresto 24 mg-26 mg tablet TAKE 1 TABLET BY MOUTH TWICE A DAY active Not Available Not Available No t Available aspirin 81 mg capsule Take 1 capsule every day by oral route. active Not Available Not Available No t Available Vitals Date Recorded Body height Body mass index (BMI) Body weight Provider Name and Address Organization Details Last Updated DateTime 02/13/2024 144.78 cm 27 kg/m2 27539.05 g RAHEEM GILMAN [facility] 02/13/2024 15:39:54 Date Recorded Body height Body mass index (BMI) Body weight Provider Name and Address Organization Details Last Updated DateTime 02/25/2024 134.62 cm 32 kg/m2 10868.82 g SALLY ROME [facility] 02/25/2024 09:04:32 Date Recorded Body height Provider Name an d Address Organization Details Last Updated DateTime 05/12/2024 134.62 cm Alana Johnson [facility] 05/12/2024 10:15:41 Date Recorded Body height Body mass index (BMI) Body weight Provider Name and Address Organization Details Last Updated DateTime 07/09/2024 134.62 cm 32 kg/m2 03251.82 g Nataly Lucas [facility] 07/09/2024 09:18:45 Date Recorded Body height Body mass index (BMI) Body weight Provider Name and Address Organization Details Last Updated DateTime 09/03/2024 134.62 cm 32 kg/m2 81578.82 g Rupal Alberto [facility] 09/03/2024 10:13:04 Social History None recorded. Functional Status None recorded. Mental Status None recorded. Family History Nothing Reported. Medical History Condition Response Allergies/Hayfever N Coronary Artery Disease N Breathing or lung disorders N Anxiety/Depression N Emphysema N Nerve Disorders N Thyroid Problems Y COPD N Pacemaker N Kidney/Bladder Problems N Anemia N Vascular Disease N Heart Trouble Y Heart Attack ([place]) N Gastrointestinal Disease N Cholesterol Y Diabetes N Autoimmune disease N Inflammatory Joint disease N Bleeding Disorder N Orthotics N Seizures/Epilepsy N Arthritis Y Blood Clot N AIDS/HIV N Congestive Heart Failure (CHF) N Acid Reflux (GERD) N Cancer N Stroke N Asthma N Circulation Problems N Peripheral Vascular Disease N Sleep Apnea N Hepatitis N Heart Disease N Rheumatoid Arthritis N Pulmonary Embolism N Arrhythmia N Headaches N Fibromyalgia N Hypertension N Osteoporosis N Gynecological HistoryNo gynecological history recorded. Obstetrics History GPAL:G 0 P 0 0 0 0 Past Encounters Encounter ID Performer Location Encounter Start Date Encounter Closed Date Diagnosis/Indication Diagnosis SNOMED-CT Code Diagnosis ICD10 Code Diagnosis Note [id number] NUBIA Connor [address] [place] [address] 10/24/2023 09:26:39 11/18/2023 09:23:24 Pain of left hip joint 7543088584 74708 M25.552 Osteoarthr itis of left hip joint due to dysplasia 3422229933 31781 M16.32 [id number] NUBIA Lagos [address] [place] [address] 11/21/2023 08:15:33 12/16/2023 16:14:06 Low back pain 174759553 M54.50 [id number] MD Balaji Ramon [address] [place] [address] 01/23/2024 15:18:17 02/19/2024 14:28:18 Pain of right knee joint 7549928076 37109 M25.561 Prepatella r bursitis of right knee 2517444287 35342 M70.41 [id number] MD [facility] Ramon [address] [place] [address] 02/13/2024 15:17:42 03/09/2024 10:09:58 Prepatellar bursitis of right knee 6279435309 56187 M70.41 [id number] MD Balaji Watkins [address] [place] [address] 02/25/2024 08:58:08 03/09/2024 10:31:38 Pain of left hip joint 3674089493 65544 M25.552 Osteoarthr itis of left hip joint 0674531414 86042 M16.12 [id number] MD Balaji Watkins [address] [place] [address] 05/12/2024 10:01:58 05/29/2024 15:54:20 History of total replacement of left hip joint 8881688077 893969 Z96.094 [id number] Deni Sotelo PA-C [facility] [address] [place] [address] 07/09/2024 09:02:51 07/21/2024 14:38:49 History of total replacement of left hip joint 3151267987 481514 Z96.809 [id number] Anderson Lam PA-C [facility] [address] [place] [address] 09/03/2024 10:05:56 09/03/2024 10:47:27 Aftercare 132305118 Z51.89 Hip joint prosthesis present 721931542 Z96.649 Health Concerns Section Related Observation LastModified by Organization Detai ls LastModified Time None Recorded Concern Status LastModified by Organization Details LastModified Time None Recorded Advance Directives Directive None Recorded Payers Encounter Date Sequence Insurance Name Policy Number Policy Martinez Covered Member ID Martinez Member ID Guarantor Name 02/13/2024 2 [place] [facility] Thais Kincaid [id number] Thais Kincaid 02/13/2024 1 [place] [employer] Thais M Mortell [id number] Thais Mortell 02/25/2024 2 [place] [facility] Thais M Mortell [id number] Thais Mortell 02/25/2024 1 [place] [employer] Thais M Mortell [id number] Thais Mortell 05/12/2024 2 [place] [facility] Thais M Mortell [id number] Thais Mortell 05/12/2024 1 [place] [facility] Thais M Mortell [id number] Thais Mortell 07/09/2024 2 [place] [facility] Thais M Mortell [id number] Thais Mortell 07/09/2024 1 [place] [facility] Thais M Mortell [id number] Thais Mortell 09/03/2024 2 [place] [facility] Thais M Mortell [id number] Thais Mortell 09/03/2024 1 [place] [facility] Thais M Mortell [id number] Thais Mortell Notes Date Note Type Note Provider Name and Address Organization Details Recorded Time 02/13/2024 text/html Chief ComplaintT he patient presents today for follow-up evaluation regarding the {{Left Right Bilatera l*}} knee osteoarthritis. Right knee is currently more symptomatic than the left. Is known to have knee arthritis treated conservatively to this point with relief of symptoms. Patient has not been seen in several years for her knees. Ongoing and chronic complaints. Recent exacerbation with Fall on the anterior aspect of her right knee has led to an organized area of prepatellar bursitis which appears to be her primary complaint. Aspiration and corticosteroid injection provided at last visit evacuated the cyst but unfortunately his develop recurrence Past Medical/Surgical HistoryReviewed today, otherwise unchanged per intake sheet. Physical FindingsGeneral Appearance: Mild antalgic gait {{right left Bilatera l*}}Knee exam findings note: restrictions are range of motion with pain at extremes, tenderness to palpation involving medial and lateral compartment with mild crepitance, trace effusion, extensor mechanism intact, no instability. calf supple non-tender Right knee has a well organized somewhat linear fluid collection, noninfectious within the prepatellar bursa measuring proximal to 1 cm x 3 cm in length HEENT- unremarkableH-RRR with no Murmurs, rubs, or gallopsA- Soft, Non-tender positive bowel soundsLungs clear to auscultation bilaterally X-RAY REPORT: X-rays were ordered, obtained and reviewed today at [facility],4 weightbearing views obtained today reveal end-stage patellofemoral osteoarthropathy left greater than right. Moderate tibiofemoral compartment space Maricruz arthropathy bilateral knees. Assessment? ? Osteoarthritis of {{Left Right Bilatera l*}} knee Organized prepatellar bursitis, noninfectious right knee PlanI discussed with the patient today regarding their knee condition to include all treatment options, conservation and operative, The prior aspiration and injection of her prepatellar bursitis did not alleviate her symptoms and the cyst recurred and less than 72 hours. Further aspiration not recommended given risk of infection and high rate of recurrence. Open prepatellar bursectomy is available to the patient but she is first going to determine if and when her total hip arthroplasty will be scheduled by Dr. Sanches. After meeting with Dr. Sanches next week she will contact my office to schedule an open prepatellar bursectomy likely prior to her OMARI. Tom Hollins MD [address] [place] [address] Suite [facility] [place] [facility] [place], [place], [address], [facility] - [facility] 02/13/2024 16:54:25 02/25/2024 text/html 45 total minutes spent on this visit today including examination, discussion, and coordination of care History of present illness:Complaint: Left hip painPain: The pain is severe, it is worsened with activity and has gotten to point where it limits the patient's ability to ambulate moderate distances without needing to rest for pain relief. The patient is limited in their regular daily and social activities as a result of this painNon-operative treatment: Patient has tried and failed anti-inflammatory pain medications, Tylenol, physical therapy, and injections.Thais is an extremely friendly and pleasant 49-year-old female who presents today for evaluation for her left hip. She presents along with her mother who is her primary caregiver. Thais has developmental deficits and physically appears similar to a Down syndrome phenotype but I am told that she tested negative for Down syndrome and they are uncertain exactly what genetic condition she has. She has been suffering left hip pain for quite some time and has severe left hip arthrits. She was previously seen in this clinic by Dr. Honorio Monroy and now follows up with me. She is interested in pursuing total hip arthroplasty.Past family, medical, social history and review of systems has been reviewed and updated, and is located in the patient? s chart. Reginaldo Sanches MD [address], [place], [address], [facility] 02/25/2024 15:39:52 05/12/2024 text/html History of prese nt illness:Thais follows up today and is now 2 weeks out from left anterior total hip arthroplasty performed by Dr. Nahid Avila in [place]. I am seeing her for routine postoperative care as traveling to [place] is difficult for the patient. She is doing well, she just recently began physical therapy but is ambulating short distances with the use of a rolling walkerPast family, medical, social history and review of systems has been reviewed and updated, and is located in the patient? s chart. Reginaldo Sanches MD [address], [place], [address], [facility] 05/12/2024 12:46:38 07/09/2024 text/html I am seeing the patient today under the supervision of {{Dr. Kayal Hollins* Dr. Mirian Galindo}} who was available but who did not see the patient. Patient here for recheck of left hip. Patient is status post left anterior total hip arthroplasty done at outside institution recurrent being followed by Dr. Sanches. Was last seen by her surgeon in [place] Dr. Hernández on 06/15 had no complaints of pain discomfort at that time. Patient states that approximately 2 weeks ago noticed a small area of scab in the proximal incision which fell off and is noticing clear drainage from the area since. Patient reports no increased pain discomfort about the hip. No difficulty with motion or ambulation. Denies any other fever or chills. Deni Sotelo PA-C [address], [place], [address], [place] - [facility] 07/09/2024 12:13:45 OBGyn Episode No OBEpisode recorded.
--- OUTSIDE RECORDS SUMMARY | 2024-09-16 14:15 | XMS_ITS | Clinical Summary ---
Author Organization [address] [place] [address] [place] [phone] Phone Care Team Providers Care Division Chair Name Role Phone Mechelle Ortega MD Primary Care Provider [phone] Allergies Active Allergy Reactions Criticality Noted Date Comments Penicillins Hives,Other 07/20/2013 Medications sacubitriL-vals carolyn (Entresto) 24-26 mg per tablet Take 1 tablet by mouth 2 (two) times a day. 4 Active carvediloL (COREG) 6.25 mg tablet Take 1 tablet (6.25 mg total) by mouth 2 (two) times a day with meals. 4 Active levothyroxine (SYNTHROID, LEVOTHROID) 100 mcg tablet Take 1 Tablet by mouth. 6 days a week. Active atorvastatin (LIPITOR) 80 mg tablet Take 1 tablet (80 mg total) by mouth at bedtime. Active dapagliflozin propanediol (Farxiga) 10 mg tabletIndicatio ns:Ischemic cardiomyopathy, ST elevation (STEMI) myocardial infarction involving left anterior descending coronary artery (CMS/HCC) TAKE 1 TABLET BY MOUTH EVERY DAY 90 tablet 2 4 Active spironolactone (ALDACTONE) 25 mg tabletIndicatio ns:Ischemic cardiomyopathy, ST elevation (STEMI) myocardial infarction involving left anterior descending coronary artery (CMS/HCC) TAKE 1 TABLET BY MOUTH EVERY DAY 90 tablet 3 5 Active furosemide (LASIX) 20 mg tablet TAKE 1 TABLET BY MOUTH DAILY NEEDED AND DIRECTED BY TRAVEL DIRECTOR 90 tablet 5 Active Active Problems Problem Noted Date Diagnosed Date Acute ST elevation myocardia l infarction (STEMI) due to occlusion of distal portion of left anterior descending (LAD) coronary artery 07/26/2022 Overview (05/12/2024): See full history under cardiomyopathy section Last Assessment & Plan: Continue high-dose atorvastatin and baby aspirin, no recurrent anginal symptoms. HLD (hyperlipidemia) 07/25/2022 Overview (05/12/2024): Last Assessment & Plan: Hyperlipidemia in the setting of coronary disease. She is on maximum statin therapy with atorvastatin 80 mg. No unusual myalgia. We can consider updating her lipid profile if it has not been done prior to follow-up. Continue healthful diet trying to walk for exercise but she can with physical limitations and hip pain. HTN (hypertension) 07/25/2022 Ischemic dilated cardiomyopathy 07/25/2022 Overview (05/12/2024): - Status post admission to [facility] in May [address] elevation [place] - Taken urgently for left heart cath which showed 100% proximal LAD stenosis which received a drug-eluting stent, mild disease or minor luminal irregularities of the remaining coronaries - Ejection fraction during that hospitalization around 20% - She also was noted to be in complete heart block and had a baseline left bundle branch block-had a Medtronic dual-chamber biventricular pacemaker placed at the time (unclear why AICD was not placed) - EF remains below 35% by echo in October 2022 however, she was not on optimal medical therapy - With further titration of goal-directed medical therapy, she had a repeat echocardiogram in April 2023 showing normal LV cavity size and wall thickness, moderate, segmental LV systolic dysfunction with akinesis of the mid anteroseptal, apical septal, apical anterior, and apical rodríguez, ejection fraction estimated at 35 to 40% but closer to 40%, there was no evidence of LV apical thrombus but there was considerable swirling of contrast, no hemodynamically significant valve disease, mildly dilated aortic root at 3.7 cm for body surface area-there was improvement in ejection fraction compared with October 2022 Last Assessment & Plan: Improved ejection fraction in the range of 35 to 40% on goal-directed medical therapy which she is tolerating well, euvolemic on exam; no current indication for ICD and no recent arrhythmias or really any significant ventricular arrhythmias on repeated device checks, continue current carvedilol, spironolactone, Entresto, Farxiga, unable to titrate further due to low blood pressure Encounters Date Type Department Care Team Description 09/16/2024 2:10 AM EDT Ancillary Procedure [facility] - [address] [place] [address] Arrived 08/20/2024 Telephone [facility] - [address] [place] [address] Chelita Todd MD Hypotension 08/19/2024 3:20 PM EST Ancillary Procedure [facility] - [address] [place] [address] 07/10/2024 Telephone [facility] Cardiology [facility] - [address] [place] [address] Judy Haney MA 07/08/2024 11:00 AM EST Ancillary Procedure [facility] Cardiology [facility] - [address] [place] [address] Encounter for adjustment or management of cardiac device 07/08/2024 Telephone [facility] Cardiology [facility] - [address] [place] [address] Gus Rizzo RN from Last 3 Months Surgical History Surgery Date Site/Laterality Comments OTHER SURGICAL HISTORY PROCEDURE: HISTORY OTHER; COMMENT: Strangulated gut (7-10 years ago) Medical History Medical History Date Comments Class 2 obesity DX:Class 2 obesi ty Back pain DX:Back pain Left hip pain DX:Left hip pain Hypothyroidism DX:Hypothyroidis m Family History Medical History Relation Name Comments No Known Problems Brother 1 No Known Problems Brother 2 Other: head and neck cancer Father No Known Problems Mother Relation Name Status Comments Brother 1 Alive Brother 2 Alive Father Mother Alive Social History Tobacco Use Types Packs/Day Years Used Date Smoking Tobacco: Never Smokeless Tobacco: Never Alcohol Use Standard Drinks/Week Comments Not Currently 0 (1 standard drink = 0.6 oz pur e alcohol) Comments Unknown Sex and Gender Information Value Date Recorded Sex Assigned at Not on file Legal Sex Female 1:08 AM EST Gender Identity Not on file Sexual Orientation Not on file Obstetrics History Last Filed Vital Signs Vital Sign Reading Time Taken Comments Blood Pressure 90/68 01/23/2024 10:04 AM EDT Si tting L Arm Pulse 60 01/23/2024 10:04 AM EDT Temperature - - Respiratory Rate - - Oxygen Saturation - - Inhaled Oxygen Concentration - - Weight 59 kg (130 lb) 01/23/2024 10:04 AM EDT Height 144.8 cm (4' 9 ) 01/23/2024 10:04 AM EDT Body Mass Index 28.13 01/23/2024 10:04 AM EDT Plan of Treatment Upcoming Encounters Date Type Department Care Team (Late st Contact Info) Description 09/23/2024 3:00 PM EDT Office Visit [facility] [address] [address] Chelita Todd MD [address] [place] [address] 07/12/2025 1:00 PM EST Ancillary Procedure [facility] [address] [facility] [address] [place] [address] Health Maintenance Due Date Last Done Comments Breast Cancer Screening 1975 DTaP,Tdap,and Td Vaccines (1 - Tdap) 01/28/1995 Hepatitis B Vaccines (1 of 3 - 19+ 3-dose series) 01/28/1995 Cervical Cancer Screening: Pap Smear 01/28/1997 Cholesterol Screening (Lipid Panel) 05/20/2022 Colorectal Cancer Screening: Colonoscopy 05/20/2022 Depression Screening 05/20/2022 HIV Screening 05/20/2022 Hepatitis C Screening 05/20/2022 Social Influencers of Health Screening 05/20/2022 Medicare Annual Wellness Visit 01/23/2024 01/22/2023 COVID-19 Vaccine ( season) 2024 08/30/2020, 08/09/2020 Hypertension/CHF/CAD Annual BMP Blood Test 07/08/2025 07/08/2024, 03/24/2024 Influenza Vaccine Completed 04/30/2024, , 05/12/2019, Additional history exists HIB Vaccines Aged Out No longer eligi ble based on patient's age to complete this topic HPV Vaccines Aged Out No longer eligi ble based on patient's age to complete this topic Hepatitis A Vaccines Aged Out No long er eligible based on patient's age to complete this topic IPV Vaccines Aged Out No longer eligi ble based on patient's age to complete this topic MMR Vaccines Aged Out No longer eligi ble based on patient's age to complete this topic Meningococcal ACWY Vaccine Aged Out N o longer eligible based on patient's age to complete this topic Meningococcal B Vacine Aged Out No lo nger eligible based on patient's age to complete this topic Pneumococcal Vaccine: Pediatrics (0 to 5 Years) and At-Risk Patients (6 to 64 Years) Aged Out No longer eligible based on patient's age to complete this topic RSV Immunization Patients Under 20 months Aged Out No longer eligible based on patient's age to complete this topic Varicella Vaccines Aged Out No longer eligible based on patient's age to complete this topic Medical Devices Implanted Type Area Powder Worker Tnt Device Identifier Shelf Expiration Date Model / Serial / Lot Medt-Card Desire Quad [employer] Relationship Manager-P [id number] Implanted:05/17 by Deshaun Esqueda MD (Quantity not on file) Cardiac HOSPITALIST MEDICAL DIRECTOR-P Left: Chest [employer] - CARDIAC RHYTH-CRDM DESIRE QUAD HOSPITALIST MEDICAL DIRECTOR-P [id number] / [id number] / Procedures Procedure Name Priority Date/Time Associated Diagnosis Comments CARDIAC DEVICE CHECK- REMOTE- MURJ Routine 09/16/2024 2:08 AM EDT CARDIAC DEVICE CHECK- REMOTE- MURJ Routine 08/19/2024 3:16 PM EST CARDIAC DEVICE CHECK- IN CLINIC- MURJ Routine 07/08/2024 12:33 PM EST Encounter for adjustment or management of cardiac device C-REACTIVE PROTEIN Routine 07/08/2024 12 :00 PM EST Other congestive heart failure (CMS/HCC) B-TYPE NATRIURETIC PEPTIDE Routine 07/08/2024 12:00 PM EST Other congestive heart failure (CMS/HCC) BASIC METABOLIC PANEL Routine 07/08/2024 12:00 PM EST Other congestive heart failure (CMS/HCC) from Last 3 Months Results * Cardiac device check - Remote- MURJ (09/16/2024 2:08 AM EDT) Only the most recent of2 resultswithin the time period is included. Date Time Interrogation Session [id number] CV DEVICE CHECK Type Interrogation Session Remote CV DEVICE CHECK Implantable Pulse Generator Powder Worker Tnt MDT CV DEVICE CHECK Implantable Pulse Generator Type HOSPITALIST MEDICAL DIRECTOR-P CV DEVICE CHECK Implantable Pulse Generator Model Desire Quad HOSPITALIST MEDICAL DIRECTOR-P [id number] CV DEVICE CHECK Implantable Pulse Generator Serial Number [id number] CV DEVICE CHECK Implantable Pulse Generator Implant Date 20220531 CV DEVICE CHECK Battery Remaining Longevity 120.0 CV DEVICE CHECK Battery Voltage 3.000 CV D EVICE CHECK Battery COMMUNITY HEALTH NURSE Trigger 2.595 CV DEVICE CHECK Battery Status Middle of Service CV DEVICE CHECK Yakov Statistic RA Percent Paced 70.38 CV DEVICE CHECK Yakov Statistic RV Percent Paced 17.59 CV DEVICE CHECK HOSPITALIST MEDICAL DIRECTOR Statistic LV Percent Paced 97.79 CV DEVICE CHECK HOSPITALIST MEDICAL DIRECTOR Statistic HOSPITALIST MEDICAL DIRECTOR Percent Paced 17.55 CV DEVICE CHECK Atrial Tachy Statistic AT/AF Fields Percent 0.00 CV DEVICE CHECK Lead Channel [...] CV DEVICE CHECK Ventricular chambers paced during HOSPITALIST MEDICAL DIRECTOR pacing. LVOnly CV DEVICE CHECK Yakov Setting Lower Rate Limit 60 CV DEVICE CHECK Yakov Setting AT Mode Switch Rate 171 CV DEVICE CHECK Yakov Setting Maximum Tracking Rate 130 CV DEVICE CHECK Yakov Setting Maximum Sensor Rate 120 CV DEVICE CHECK Yakov Setting PAV Delay 160 CV DEVICE CHECK Yakov Setting DENISA Delay 90 CV DEVICE CHECK HOSPITALIST MEDICAL DIRECTOR LV-RV Delay 40 CV D EVICE CHECK [...] IMPLANTABLE CARDIAC DEV ICE PROCEDURES Final Result * CARDIAC DEVICE CHECK- [place] [facility] [place]08[place] 12:33 PM EST) Date Time Interrogation Session [id number] CV DEVICE CHECK Implantable Pulse Generator Powder Worker Tnt MDT CV DEVICE CHECK Implantable Pulse Generator Type HOSPITALIST MEDICAL DIRECTOR-P CV DEVICE CHECK Implantable Pulse Generator Model Desire Quad HOSPITALIST MEDICAL DIRECTOR-P [id number] CV DEVICE CHECK Implantable Pulse Generator Serial Number [id number] CV DEVICE CHECK Implantable Pulse Generator Implant Date 20220531 CV DEVICE CHECK Battery Status Middle of Service CV DEVICE CHECK Yakov Statistic RA Percent Paced 75.10 CV DEVICE CHECK HOSPITALIST MEDICAL DIRECTOR Statistic HOSPITALIST MEDICAL DIRECTOR Percent Paced 97.60 CV DEVICE CHECK Atrial Tachy Statistic AT/AF Fields Percent 0.00 CV DEVICE CHECK Lead Channel Sensing Intrinsic Amplitude 4.600 CV DEVICE CHECK Lead Channel Setting Sensing Sensitivity 0.60 CV DEVICE CHECK Lead Channel Impedance Value 418 CV DEVICE CHECK Lead Channel Pacing Threshold Amplitude 0.750 CV DEVICE CHECK Lead Channel Pacing Threshold Pulse Width 0.4 CV DEVICE CHECK Lead Channel RA Pacing Threshold Date 2024-07-08 CV DEVICE CHECK Lead Channel Setting Pacing Amplitude 1.750 CV DEVICE CHECK Lead Channel Setting Pacing Pulse Width 0.4 CV DEVICE CHECK Lead Channel Sensing Intrinsic Amplitude 15.600 CV DEVICE CHECK Lead Channel Setting Sensing Sensitivity 0.90 CV DEVICE CHECK Lead Channel Impedance Value 399 CV DEVICE CHECK Lead Channel Pacing Threshold Amplitude 1.000 CV DEVICE CHECK Lead Channel Pacing Threshold Pulse Width 0.4 CV DEVICE CHECK Lead Channel RV Pacing Threshold Date 2024-07-08 CV DEVICE CHECK Lead Channel Setting Pacing Amplitude 2.250 CV DEVICE CHECK Lead Channel Setting Pacing Pulse Width 0.4 CV DEVICE CHECK Lead Channel Impedance Value 437 CV DEVICE CHECK Lead Channel Pacing Threshold Amplitude 0.750 CV DEVICE CHECK Lead Channel Pacing Threshold Pulse Width 0.4 CV DEVICE CHECK Lead Channel Pacing Threshold Date 2024-07-08 CV DEVICE CHECK Lead Channel Setting Pacing Amplitude 1.250 CV DEVICE CHECK Lead Channel Setting Pacing Pulse Width 0.4 CV DEVICE CHECK Yakov Setting Mode (NBG Code) DDD CV DEVICE CHECK Ventricular chambers paced during HOSPITALIST MEDICAL DIRECTOR pacing. LV CV DEVICE CHECK Yakov Setting Lower Rate Limit 60 CV DEVICE CHECK Yakov Setting AT Mode Switch Rate 171 CV DEVICE CHECK Yakov Setting Maximum Tracking Rate 130 CV DEVICE CHECK Yakov Setting Maximum Sensor Rate 120 CV DEVICE CHECK Zone Setting Type Category AT/AF CV DEVICE CHECK Therapies All Rx Off CV DEVICE CHECK Zone Setting Status Monitor CV DEVICE CHECK Zone ID 2 CV DEVICE CHECK Zone Setting Type Category VT CV DEVICE CHECK Zone Setting Status Monitor CV DEVICE CHECK Zone ID 5 CV DEVICE CHECK Date of Service 2024-07-08 CV DEVICE CHECK Anatomical Region Laterality Modality Device Interroga tion 07/08/2024 Impressions 07/21/2024 12:59 PM EST Normal In-Office: No Events * Normal Device Function * Alerts or events: None * Battery: MOS, 10.6 years * Sensing, impedance and thresholds reviewed and tested * Presenting Rhythm: AP - CASINO BANKER 60 bpm * Underlying rhythm: - VS 50's * Heart Rate Histograms reviewed * Pacing and Detection Parameters were evaluated Heart Failure Diagnostic: Elevated * Heart failure diagnostics assessed through the device- on-going since /may- see TC in [facility] 06.14.24 * Status: Elevated * Pt/mother admit to some swelling and attribute to some increased salt consumed around holidays and recent hip surgery LC/SH notified Narrative Procedure Note Deshaun Esqueda MD - 07/21/2024 IMPRESSION: Normal In-Office: No Events * Normal Device Function * Alerts or events: None * Battery: MOS, 10.6 years * Sensing, impedance and thresholds reviewed and tested * Presenting Rhythm: AP - CASINO BANKER 60 bpm * Underlying rhythm: - VS 50's * Heart Rate Histograms reviewed * Pacing and Detection Parameters were evaluated Heart Failure Diagnostic: Elevated * Heart failure diagnostics assessed through the device- on-going since/may- see TC in [facility] 06.14.24 * Status: Elevated * Pt/mother admit to some swelling and attribute to some increased saltconsumed around holidays and recent hip surgery LC/SH notified us Order Referral Cardiovascular CV IMPLANTABLE CAR DIAC DEVICE PROCEDURES Final Result * (ABNORMAL) C-reactive protein (07/08/2024 12:00 PM EST) C-Reactive Protein 0.98(H) <=0.50 mg/dL LAB CHEMISTRY METHOD 07/09/2024 10:25 AM EST [facility] ([facility] Blood Venous blood specimen / Unknown Venipuncture / Unknown 07/08/2024 12:00 PM EST 07/08/2024 12:33 PM EST Deni BARRIENTOS LAB BLOOD ORDERABLES Final Result Performing Organization Address City/[facility]/ZIP Co de Phone Number [facility] [address] [place] [address], * B-type natriuretic peptide (07/08/2024 12:00 PM EST) Pathologist [facility] BNP 96 <=100 pcg/mL LAB CHEMISTRY METHOD 07/08/2024 1:29 PM [facility] Blood Venous blood specimen / Unknown Venipuncture / Unknown 07/08/2024 12:00 PM EST 07/08/2024 12:33 PM EST Julia Flynn NP LAB BLOOD ORDERABLES F inal Result Performing Organization Address [facility]/ZIP Co de Phone Number [facility] [address] [place] [address], * Basic metabolic panel (07/08/2024 12:00 PM EST) [facility] Sodium 140 133 - 145 mmol/L LAB CHEMISTRY METHOD 07/08/2024 4:32 PM [facility] Potassium 4.7 3.5 - 5.5 mmol/L LAB CHEMISTRY METHOD 07/08/2024 4:32 PM [facility] Chloride 110 96 - 110 mmol/L LAB CHEMISTRY METHOD 07/08/2024 4:32 PM [facility] CO2 27 21 - 32 mmol/L LAB CHEMISTRY METHOD 07/08/2024 4:32 PM [facility] Anion Gap 3 3 - 11 LAB CHEMISTRY METHOD 07/08/2024 4:32 PM [facility] Glucose 81 70 - 100 mg/dL LAB CHEMISTRY METHOD 07/08/2024 4:32 PM [facility] BUN 16 5 - 25 mg/dL LAB CHEMISTRY METHOD 07/08/2024 4:32 PM [facility] Creatinine 0.61 0.50 - 1.10 mg/dL LAB CHEMISTRY METHOD 07/08/2024 4:[address] [facility] eGFR 110 >=60 mL/min/1. 73m2 LAB CHEMISTRY METHOD 07/08/2024 4:[address] [facility] Comment:Calculation based on the??Chronic Kidney Disease Epidemiology Collaboration (CKD-EPI) equation refit??without adjustment for race. BUN/Creatinine Ratio 26.2 LAB CHEMISTRY METHOD 07/08/2024 4:32 PM [facility] Calcium 9.3 8.5 - 10.5 mg/dL LAB CHEMISTRY METHOD 07/08/2024 4:32 PM [facility] Blood Venous blood specimen / Unknown Venipuncture / Unknown 07/08/2024 12:00 PM EST 07/08/2024 12:33 PM EST Julia Flynn AGRICULTURAL LOAN OFFICER LAB BLOOD ORDERABLES F inal Result [facility] [address] [place] [address], from Last 3 Months Insurance MEDICARE MEDICAID - [place] Care Teams Division Chair Relationship Specialty Start Date End Date Mechelle Ortega MD [address] [facility] Suzanne [address] [address] PCP - General Internal Medicine 04/30/24
== END 2024-09-16 11:40 | disposition home or self-care (01) ==
LOC: HO.SH 11:39
PROVIDERS: Visit Provider Internal Medicine
DX: Z13.89 Encounter for screening for other disorder (principal)

== ENCOUNTER 2024-10-13 13:51 | Outpatient (REF) | payer MEDICARE, MEDICAID, SELFPAY ==
--- OUTSIDE RECORDS SUMMARY | 2024-10-13 16:01 | XMS_ITS | Clinical Summary ---
Author Organization [facility] Address [address] [place], [place] [id number] Care Team Providers Care Flat Polisher Name Role Phone Michael Manjarrez MD Primary Care Provider [phone] Allergies Active Allergy Reactions Criticality Noted Date [...] age to complete this topic Care Teams Flat Polisher Relationship Specialty Start Date End Date Michael Manjarrez MD [address] [place] [address] PCP - General Internal Medicine 02/28/18
--- OUTSIDE RECORDS SUMMARY | 2024-10-13 16:01 | XMS_ITS | Clinical Summary ---
Author Organization Unknown Care Team Providers Care Colliery Clerk Name Role Phone BROTHERS RUI CONTI Unavailable U navailable JOHN PT, JAKE Unavailable Unavailable NAPOLITAN OT, MARC Unavailable Unavailable ERYN RN, JEFFERY Unavailable Unavailable YULIANA BUS ESCORT, RACIEL Unavailable Unavailrandolph LEÓN COMMISSARY ASSISTANT, CHINO Unavailable Unavailable Payers Payer Name Policy Type Policy Number Effective Date Expira tion Date MEDICARE.NGS.PDGM [id number] Problems Condition Name Condition Details Condition Category Status Onset Date Resolution Date Last Treatment Date Treating Clinician Comments DISLOCATION OF INTERNAL LEFT HIP PROSTHESIS, SUBS ENCNTR Active 08-24 00:00: 00 HYPERTENSIVE HEART DISEASE WITH HEART FAILURE Active 06-17 00:00: 00 HEART FAILURE, UNSPECIFIED Active 06-17 00:00: 00 LEFT BUNDLE-BRANC H BLOCK, UNSPECIFIED Active 06-17 00:00: 00 HYPOTHYROIDI SM, UNSPECIFIED Active 06-17 00:00: 00 UNSPECIFIED OSTEOARTHRIT IS, UNSPECIFIED SITE Active 06-17 00:00: 00 ATRIOVENTRIC ULAR BLOCK, COMPLETE Active 06-17 00:00: 00 ISCHEMIC CARDIOMYOPAT HY Active 06-17 00:00: 00 OLD MYOCARDIAL INFARCTION Active 06-17 00:00: 00 Obesity, class 1 Active 06-17 00:00: 00 PURE HYPERCHOLEST EROLEMIA, UNSPECIFIED Active 06-17 00:00: 00 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 Ordering Clinician Indication Dosage Frequency Signature (SIG) Comments Components oxycodone 5 mg tablet 2023-06 00:00: 00 07-15 00:00 :00 No [id number] PAIN 1 tablet EVERY 8 HOURS 1 tablet EVERY 8 HOURS (route: oral) Med Classific ation: Analgesic , Anti-infl ammatory or Antipyret ic tramadol 50 mg tablet 2023-06 00:00: 00 08-24 00:00 :00 No [id number] PAIN 1-2 tablet EVERY 8 HOURS 1-2 tablet EVERY 8 HOURS (route: oral) Med Classific ation: Analgesic , Anti-infl ammatory or Antipyret ic Entresto 24 mg-26 mg tablet 2023-06 00:00: 00 Yes [id number] HTN 1 tablet TWICE A DAY 1 tablet TWICE A DAY (route: oral) Med Classific ation: Cardiovas cular Therapy Agents spironolact one 25 mg tablet 2023-06 00:00: 00 Yes [id number] HEART FAILURE 1 tablet EVERY DAY 1 tablet EVERY DAY (route: oral) Med Classific ation: Cardiovas cular Therapy Agents acetaminoph en 500 mg tablet 2023-06 00:00: 00 08-24 00:00 :00 No [id number] PAIN 2 tablet 3 TIMES DAILY 2 tablet 3 TIMES DAILY (route: oral) Med Classific ation: Analgesic , Anti-infl ammatory or Antipyret ic aspirin 81 mg tablet,clifton yed release 09-16 00:00: 00 Yes [id number] DVT PROPHYLAXIS 1 tablet DAILY 1 tablet DAILY (route: oral) Med Classific ation: Hematolog ical Agents atorvastati n 80 mg tablet 2023-06 00:00: 00 Yes [id number] CHOLESTEROL 1 tablet DAILY 1 tablet DAILY (route: oral) Med Classific ation: Cardiovas cular Therapy Agents carvedilol 6.25 mg tablet 2023-06 00:00: 00 Yes [id number] HTN 1 tablet 2 TIMES DAILY 1 tablet 2 TIMES DAILY (route: oral) Med Classific ation: Cardiovas cular Therapy Agents Farxiga 10 mg tablet 2023-06 00:00: 00 08-24 00:00 :00 No [id number] WEIGHT LOSS 1 tablet DAILY 1 tablet DAILY (route: oral) Med Classific ation: Endocrine levothyroxi ne 100 mcg capsule 2023-06 00:00: 00 Yes [id number] THYROID 1 capsule DAILY 1 capsule DAILY (route: oral) Med Classific ation: Endocrine Miralax 17 gram oral powder packet 2023-06 00:00: 00 07-15 00:00 :00 No [id number] CONSTIPATIO N 1 packet DAILY 1 packet DAILY (route: oral) Med Classific ation: Gastroint estinal Therapy Agents naproxen 500 mg tablet 2023-06 00:00: 00 07-15 00:00 :00 No [id number] pain 1 tablet 2 TIMES DAILY 1 tablet 2 TIMES DAILY (route: oral) Med Classific ation: Analgesic , Anti-infl ammatory or Antipyret ic acetaminoph en ER 650 mg tablet,exte nded release 08-24 00:00: 00 Yes [id number] PAIN 1 tablet 2 TIMES DAILY 1 tablet 2 TIMES DAILY (route: oral) Med Classific ation: Analgesic , Anti-infl ammatory or Antipyret ic aspirin 325 mg tablet 08-19 00:00: 00 09-15 23:59 :00 No [id number] PROPHYLACTI C 1 tablet 2 TIMES DAILY 1 tablet 2 TIMES DAILY (route: oral) Med Classific ation: Analgesic , Anti-infl ammatory or Antipyret ic dapaglifloz in propanediol 10 mg tablet 08-24 00:00: 00 Yes [id number] BLOOD SUGAR 1 tablet DAILY 1 tablet DAILY (route: oral) Med Classific ation: Endocrine oxycodone 5 mg tablet 08-24 00:00: 00 Yes [id number] PAIN 1 tablet EVERY 4 HOURS 1 tablet EVERY 4 HOURS (route: oral) Med Classific ation: Analgesic , Anti-infl ammatory or Antipyret ic pantoprazol e 40 mg tablet,clifton yed release 08-24 00:00: 00 Yes [id number] GERD 1 tablet DAILY 1 tablet DAILY (route: oral) Med Classific ation: Gastroint estinal Therapy Agents Vital Signs Vital Name Observation Time Observation Value Commen ts Temperature 2024-10-08 10:07:00.000 97.4 [degF] Temperature 2024-09-10 13:50:00.000 97.6 [degF] Temperature 2024-09-04 12:18:00.000 96.8 [degF] Temperature 2024-08-31 12:20:00.000 97.5 [degF] Temperature 2024-08-24 12:07:00.000 98.2 [degF] Height 2024-08-24 12:07:00.000 57 [in_us] Pulse 2024-10-08 10:07:00.000 60 /min Pulse 2024-09-10 23:45:00.000 60 /min Pulse 2024-09-04 12:18:00.000 60 /min Pulse 2024-08-31 12:20:00.000 60 /min Pulse 2024-08-24 12:07:00.000 60 /min O2 Saturation (%) 2024-10-08 10:07:00.000 100 % O2 Saturation (%) 2024-09-10 13:50:00.000 98 % O2 Saturation (%) 2024-09-04 12:18:00.000 96 % O2 Saturation (%) 2024-08-31 12:20:00.000 98 % O2 Saturation (%) 2024-08-24 12:07:00.000 98 % Respirations 2024-10-08 10:07:00.000 16 /min Respirations 2024-09-10 13:50:00.000 16 /min Respirations 2024-09-04 12:18:00.000 18 /min Respirations 2024-08-31 12:20:00.000 16 /min Respirations 2024-08-24 12:07:00.000 18 /min Weight (lbs) 2024-08-24 12:07:00.000 0.1 [lb_av] Systolic Blood Pressure 2024-10-08 10:07:00.000 94 mm[ Hg] Systolic Blood Pressure 2024-09-10 13:50:00.000 120 mm [Hg] Systolic Blood Pressure 2024-09-04 12:18:00.000 110 mm [Hg] Systolic Blood Pressure 2024-08-31 12:20:00.000 90 mm[ Hg] Systolic Blood Pressure 2024-08-24 12:07:00.000 100 mm [Hg] Diastolic Blood Pressure 2024-10-08 10:07:00.000 60 mm [Hg] Diastolic Blood Pressure 2024-09-10 13:50:00.000 60 mm [Hg] Diastolic Blood Pressure 2024-09-04 12:18:00.000 60 mm [Hg] Diastolic Blood Pressure 2024-08-31 12:20:00.000 56 mm [Hg] Diastolic Blood Pressure 2024-08-24 12:07:00.000 60 mm [Hg] Plan of Treatment Planned Activity Planned Date Details Comments Future Scheduled Test PHYSICAL T HERAPIST TO EVALUATE TREAT INDICATED [code = PHYSICAL THERAPIST TO EVALUATE TREAT INDICATED] Future Scheduled Test OCCUPATION AL THERAPIST TO EVALUATE TREAT INDICATED [code = OCCUPATIONAL THERAPIST TO EVALUATE TREAT INDICATED] Future Scheduled Test MEDICATION MANAGEMENT; RN/BUS ESCORT/VICE PRESIDENT PLANNING TO REVIEW MEDICATIONS FOR INTERACTIONS, EFFECTIVENESS OF DRUG THERAPY, AND SIGNS/SYMPTOMS OF ADVERSE REACTIONS. MAY INSTRUCT AND REINFORCE MEDICATION TEACHING RELATED TO THE USE OF MEDICATIONS, DOSAGE, FREQUENCY, PURPOSE, SIDE EFFECTS, AND TO REPORT COMPLICATIONS. [code = MEDICATION MANAGEMENT; RN/BUS ESCORT/VICE PRESIDENT PLANNING TO REVIEW MEDICATIONS FOR INTERACTIONS, EFFECTIVENESS OF DRUG THERAPY, AND SIGNS/SYMPTOMS OF ADVERSE REACTIONS. MAY INSTRUCT AND REINFORCE MEDICATION TEACHING RELATED TO THE USE OF MEDICATIONS, DOSAGE, FREQUENCY, PURPOSE, SIDE EFFECTS, AND TO REPORT COMPLICATIONS.] Future Scheduled Test FALL REDUC TION MANAGEMENT; RN TO ASSESS AND OBSERVE, BUS ESCORT/VICE PRESIDENT PLANNING TO OBSERVE FALL RISK FACTORS AND EDUCATE PATIENT/CAREGIVER ON STRATEGIES TO MINIMIZE THE RISK OF FALLING. [code = FALL REDUCTION MANAGEMENT; RN TO ASSESS AND OBSERVE, BUS ESCORT/VICE PRESIDENT PLANNING TO OBSERVE FALL RISK FACTORS AND EDUCATE PATIENT/CAREGIVER ON STRATEGIES TO MINIMIZE THE RISK OF FALLING.] Future Scheduled Test RN TO OBSE RVE, ASSESS, EVALUATE, AND DEVELOP AN INDIVIDUALIZED PLAN OF CARE. AGENCY MAY ACCEPT ORDERS FROM CONSULTING PHYSICIANS DR RUI GUERIN, DR AGUSTIN THOMASON. RN TO OBSERVE AND ASSESS, BUS ESCORT/VICE PRESIDENT PLANNING TO OBSERVE FOR RISK FOR FALLS AND INSTRUCT IN FALL PREVENTION, HOME SAFETY, MEDICATION MANAGEMENT, INFECTION PREVENTION, AND NUTRITION MANAGEMENT. RN/BUS ESCORT/VICE PRESIDENT PLANNING NURSE MAY PERFORM O2 SATURATION LEVEL ON ADMISSION AND PRN FOR SOB FOR RN TO ASSESS/BUS ESCORT TO OBSERVE PATIENT, WITH NOTIFICATION TO THE PHYSICIAN IF SATURATION IS 90% IN THE ABSENCE OF MORE SPECIFIC PARAMETERS FROM THE PHYSICIAN. AGENCY MAY PERFORM A RESUMPTION OF CARE VISIT FOLLOWING ANY HOSPITAL ADMISSION. RN/BUS ESCORT/VICE PRESIDENT PLANNING TO MONITOR CO-MORBID CONDITIONS LISTED ON THE PLAN OF CARE AND ANY NEW CONDITIONS THAT PRESENT THEMSELVES DURING THIS EPISODE TO IDENTIFY CHANGES AND INTERVENE TO MINIMIZE COMPLICATIONS. [code = RN TO OBSERVE, ASSESS, EVALUATE, AND DEVELOP AN INDIVIDUALIZED PLAN OF CARE. AGENCY MAY ACCEPT ORDERS FROM CONSULTING PHYSICIANS DR RUI GUERIN, DR AGUSTIN THOMASON. RN TO OBSERVE AND ASSESS, BUS ESCORT/VICE PRESIDENT PLANNING TO OBSERVE FOR RISK FOR FALLS AND INSTRUCT IN FALL PREVENTION, HOME SAFETY, MEDICATION MANAGEMENT, INFECTION PREVENTION, AND NUTRITION MANAGEMENT. RN/BUS ESCORT/VICE PRESIDENT PLANNING NURSE MAY PERFORM O2 SATURATION LEVEL ON ADMISSION AND PRN FOR SOB FOR RN TO ASSESS/BUS ESCORT TO OBSERVE PATIENT, WITH NOTIFICATION TO THE PHYSICIAN IF SATURATION IS 90% IN THE ABSENCE OF MORE SPECIFIC PARAMETERS FROM THE PHYSICIAN. AGENCY MAY PERFORM A RESUMPTION OF CARE VISIT FOLLOWING ANY HOSPITAL ADMISSION. RN/BUS ESCORT/VICE PRESIDENT PLANNING TO MONITOR CO-MORBID CONDITIONS LISTED ON THE PLAN OF CARE AND ANY NEW CONDITIONS THAT PRESENT THEMSELVES DURING THIS EPISODE TO IDENTIFY CHANGES AND INTERVENE TO MINIMIZE COMPLICATIONS.] Future Scheduled Test PAIN MANAG EMENT; RN TO ASSESS AND TEACH, VICE PRESIDENT PLANNING/BUS ESCORT TO OBSERVE AND TEACH AND PROVIDE EDUCATION ON PAIN MANAGEMENT TECHNIQUES. [code = PAIN MANAGEMENT; RN TO ASSESS AND TEACH, VICE PRESIDENT PLANNING/BUS ESCORT TO OBSERVE AND TEACH AND PROVIDE EDUCATION ON PAIN MANAGEMENT TECHNIQUES.] Future Scheduled Test RISK FOR H OSPITALIZATION; RN TO ASSESS/TEACH, VICE PRESIDENT PLANNING/BUS ESCORT TO OBSERVE/TEACH PATIENT/CAREGIVER ON RISK FOR HOSPITALIZATION/EMERGENCY ROOM VISITS, TEACH SIGNS AND SYMPTOMS THAT PUT PATIENT AT RISK, WHEN TO NOTIFY NURSE/PHYSICIAN OF COMPLICATIONS/DECLINE, AND WHEN TO CALL 911. [code = RISK FOR HOSPITALIZATION; RN TO ASSESS/TEACH, VICE PRESIDENT PLANNING/BUS ESCORT TO OBSERVE/TEACH PATIENT/CAREGIVER ON RISK FOR HOSPITALIZATION/EMERGENCY ROOM VISITS, TEACH SIGNS AND SYMPTOMS THAT PUT PATIENT AT RISK, WHEN TO NOTIFY NURSE/PHYSICIAN OF COMPLICATIONS/DECLINE, AND WHEN TO CALL 911.] Future Scheduled Test [facility]; RN TO ASSESS/TEACH, BUS ESCORT/VICE PRESIDENT PLANNING TO OBSERVE/TEACH RELATED TO ALTERED CARDIOVASCULAR STATUS TO MINIMIZE COMPLICATIONS AND REDUCE HOSPITALIZATION. [code = CARDIOVASCULAR SYSTEM; RN TO ASSESS/TEACH, BUS ESCORT/VICE PRESIDENT PLANNING TO OBSERVE/TEACH RELATED TO ALTERED CARDIOVASCULAR STATUS TO MINIMIZE COMPLICATIONS AND REDUCE HOSPITALIZATION.] Future Scheduled Test AGENCY MAY PERFORM A RESUMPTION OF CARE VISIT FOLLOWING ANY HOSPITAL ADMISSION. PT TO EVALUATE, OBSERVE / ASSESS, AND MONITOR, COMMISSARY ASSISTANT TO OBSERVE AND MONITOR, PROVIDE SKILLED THERAPEUTIC INTERVENTION, ACTIVITY, EDUCATION, AND TRAINING TO ADDRESS; PT/COMMISSARY ASSISTANT TO PROVIDE GAIT TRAINING FOR IMPROVED MOBILITY AND /OR TO NORMALIZE GAIT PATTERN NEUROMUSCULAR RE-EDUCATION / BALANCE / POSTURAL CONTROL (PT) THERAPEUTIC EXERCISES AND ESTABLISHING A HOME EXERCISE PROGRAM (PT/COMMISSARY ASSISTANT) PT/COMMISSARY ASSISTANT TO PROVIDE STAIR TRAINING BED TRANSFERS (PT/COMMISSARY ASSISTANT) CHAIR TRANSFERS (PT/COMMISSARY ASSISTANT) PT TO ASSESS / COMMISSARY ASSISTANT TO MONITOR FOR AND REPORT EARLY SIGNS OF ANTICOAGULANT TOXICITY TO THE PHYSICIAN AND/OR THE RN CLINICAL OPERATIONS DISPATCHER FOR PHYSICIAN NOTIFICATION AND TO PROVIDE PATIENT/CAREGIVER EDUCATION ON ANTICOAGULANT THERAPY PT / COMMISSARY ASSISTANT MAY EDUCATE ON PAIN MANAGEMENT CLINICALLY INDICATED, INCLUDING NON-PHARMACOLOGICAL PAIN REDUCTION TECHNIQUES AND USE OF CRYOTHERAPY UP TO 20 MIN AT A TIME FOR PAIN MANAGEMENT 4 TIMES PER DAY TO L HIP. PT / COMMISSARY ASSISTANT TO EDUCATE ON HIP REPLACEMENT SELF-MANAGEMENT PT TO ASSESS / COMMISSARY ASSISTANT TO MONITOR FOR HEART FAILURE EXACERBATION AND RECORD PATIENT REPORTED WEIGHT, AND NOTIFY THE PHYSICIAN AND/OR THE RN CLINICAL OPERATIONS DISPATCHER FOR PHYSICIAN NOTIFICATION OF HF EXACERBATION (2LB WEIGHT GAIN IN 1 DAY, 5LBS IN A WEEK OR 5 LBS OVER BASELINE; INCREASED SOB, EDEMA, NEEDING MORE PILLOWS AT NIGHT, CRACKLES IN BASIS OF THE LUNGS OR PMI SHIFT) [code = AGENCY MAY PERFORM A RESUMPTION OF CARE VISIT FOLLOWING ANY HOSPITAL ADMISSION. PT TO EVALUATE, OBSERVE / ASSESS, AND MONITOR, COMMISSARY ASSISTANT TO OBSERVE AND MONITOR, PROVIDE SKILLED THERAPEUTIC INTERVENTION, ACTIVITY, EDUCATION, AND TRAINING TO ADDRESS; PT/COMMISSARY ASSISTANT TO PROVIDE GAIT TRAINING FOR IMPROVED MOBILITY AND /OR TO NORMALIZE GAIT PATTERN NEUROMUSCULAR RE-EDUCATION / BALANCE / POSTURAL CONTROL (PT) THERAPEUTIC EXERCISES AND ESTABLISHING A HOME EXERCISE PROGRAM (PT/COMMISSARY ASSISTANT) PT/COMMISSARY ASSISTANT TO PROVIDE STAIR TRAINING BED TRANSFERS (PT/COMMISSARY ASSISTANT) CHAIR TRANSFERS (PT/COMMISSARY ASSISTANT) PT TO ASSESS / COMMISSARY ASSISTANT TO MONITOR FOR AND REPORT EARLY SIGNS OF ANTICOAGULANT TOXICITY TO THE PHYSICIAN AND/OR THE RN CLINICAL OPERATIONS DISPATCHER FOR PHYSICIAN NOTIFICATION AND TO PROVIDE PATIENT/CAREGIVER EDUCATION ON ANTICOAGULANT THERAPY PT / COMMISSARY ASSISTANT MAY EDUCATE ON PAIN MANAGEMENT CLINICALLY INDICATED, INCLUDING NON-PHARMACOLOGICAL PAIN REDUCTION TECHNIQUES AND USE OF CRYOTHERAPY UP TO 20 MIN AT A TIME FOR PAIN MANAGEMENT 4 TIMES PER DAY TO L HIP. PT / COMMISSARY ASSISTANT TO EDUCATE ON HIP REPLACEMENT SELF-MANAGEMENT PT TO ASSESS / COMMISSARY ASSISTANT TO MONITOR FOR HEART FAILURE EXACERBATION AND RECORD PATIENT REPORTED WEIGHT, AND NOTIFY THE PHYSICIAN AND/OR THE RN CLINICAL OPERATIONS DISPATCHER FOR PHYSICIAN NOTIFICATION OF HF EXACERBATION (2LB WEIGHT GAIN IN 1 DAY, 5LBS IN A WEEK OR 5 LBS OVER BASELINE; INCREASED SOB, EDEMA, NEEDING MORE PILLOWS AT NIGHT, CRACKLES IN BASIS OF THE LUNGS OR PMI SHIFT)] Goal Patient Goal - HAVE NO MORE HIP PROBLEMS Goal Provider Goal - Goal Provider Goal - Goal Provider Goal - PATIENT/CAREGIVER TO VERBALIZE, AND CONSISTENTLY DEMONSTRATE EFFECTIVE, SAFE MANAGEMENT OF MEDICATION INCLUDING KNOWLEDGE OF EFFECTIVENESS, POTENTIAL SIDE EFFECTS AND DRUG REACTIONS AND WHEN TO CONTACT THE APPROPRIATE CARE PROVIDER. PATIENT/CAREGIVER WILL BE ABLE TO VERBALIZE UNDERSTANDING OF MEDICATION REGIMEN AND ACCURATELY TAKE MEDICATIONS PRESCRIBED WITHOUT ADVERSE EFFECTS BY 10/22/24 Goal Provider Goal - PATIENT/CAREGIVER WILL VERBALIZE/DEMONSTRATE UNDERSTANDING OF FALL RISK FACTORS AND IMPLEMENT STRATEGIES TO MINIMIZE FALL RISK. PATIENT/CAREGIVER WILL VERBALIZE/DEMONSTRATE AN ABILITY TO ADHERE TO FALL REDUCTION SELF-MANAGEMENT AND LIFE-STYLE CHANGES BY 10/22/24 Goal Provider Goal - A PLAN OF CARE WILL BE ESTABLISHED THAT MEETS THE PATIENTS NEEDS. PATIENT WILL DEMONSTRATE OXYGEN SATURATION WITHIN NORMAL LIMITS OR PATIENTS OPTIMAL LEVEL ESTABLISHED BY THE PHYSICIAN THROUGHOUT CARE. CHANGES TO CO-MORBID CONDITIONS AND ANY NEW CONDITIONS WILL BE IDENTIFIED AND REPORTED TO THE PHYSICIAN. Goal Provider Goal - PATIENT / CAREGIVER WILL VERBALIZE / DEMONSTRATE UNDERSTANDING OF PAIN CONTROL MEASURES BY 10/22/24 Goal Provider Goal - PATIENT/CAREGIVER WILL VERBALIZE UNDERSTANDING OF SIGNS AND SYMPTOMS THAT PUT THE PATIENT AT RISK FOR HOSPITALIZATION /EMERGENCY ROOM VISITS, WHEN TO NOTIFY NURSE/PHYSICIAN OF COMPLICATIONS/DECLINE AND WHEN TO CALL 911. Goal Provider Goal - PATIENT / CAREGIVER WILL VERBALIZE/DEMONSTRATE UNDERSTANDING OF MEASURES TO MANAGE ALTERED CARDIOVASCULAR STATUS BY 10/22/24. Goal Provider Goal - PT LTG: PATIENT WILL DEMONSTRATE IMPROVED AMBULATION FROM CGA TO INDEPENDENT WITHIN 4 WEEKS PT LTG: PATIENT WILL DEMONSTRATE IMPROVE STAIR SKILLS FROM MINIMAL ASSISTANCE TO INDEPENDENT WITHIN 4 WEEKS TO ALLOW PATIENT TO GET TO AND FROM CAR INDEPENDENTLY. PT LTG: PATIENT WILL DEMONSTRATE INCREASED STRENGTH OF LLE FROM 2+ TO 3+/5 WITHIN 4 WEEKS IN ORDER TO RETURN TO INDEPENDENT TRANSFER AND AMBULATION SKILLS. PT STG: PATIENT WILL DEMONSTRATE IMPROVED ABILITY TO PERFORM CHAIR TRANSFERS TO REDUCE THE RISK OF SKIN BREAKDOWN AND FALL RISK FROM SBA TO INDEPENDENT WITHIN 2 WEEKS. PT LTG: PATIENT WILL BE INDEPENDENT WITH IMPLEMENTATION OF HEP WITHIN 5 WEEKS. PT STG: PATIENT WILL DEMONSTRATE IMPROVED ABILITY TO PERFORM BED TRANSFERS IN ORDER TO REDUCE RISK OF SKIN BREAKDOWN FROM MIN A TO INDEPENDENT WITHIN 2 WEEKS. PT LTG: PATIENT WILL NOT EXHIBIT SIGNS AND SYMPTOMS OF ANTICOAGULANT TOXICITY THROUGHOUT EPISODE OF CARE. PT GOAL: PATIENT WILL DEMONSTRATE UNDERSTANDING OF PAIN MANAGEMENT TECHNIQUES EVIDENCED BY REDUCED PAIN IN L HIP FROM 4 TO 1 WITHIN 4 WEEKS. PT GOAL: PATIENT WILL DEMONSTRATE OPTIMAL OUTCOMES INCLUDING INCREASED ROM AND STRENGTH WITH NO COMPLICATIONS FOLLOWING HIP SURGERY BY END OF EPISODE. PT GOAL: PATIENTS HEART FAILURE WILL REMAIN WELL CONTROLLED THROUGHOUT EPISODE OF CARE. Encounters Start Date/Time End Date/Time Encounter Type Admission Type Attending [facility] Facility Care Department Encounter ID Discharge Date Discharge Status Discharge Condition Discharge Reason Percent Goals Met 2024-08-24 00:00:00 2024-10-22 00:00:00 Outpatient JAKE MURRAY [facility] [id number] 53.85
--- OUTSIDE RECORDS SUMMARY | 2024-10-13 16:01 | XMS_ITS | Encounter Summary ---
Author Organization [facility] Address [address] [place] [address] Care Team Providers Care Healthcare Consulting Manager Name Role Phone Mechelle Ortega MD Primary Care Provider [phone] Encounter Details Date Type Department Care Team (Late Contact Info) Description 10/13/2024 12:05 PM EDT Ancillary Procedure [facility] [address] [facility] [address] [place] [phone] Arrived Social History Tobacco Use Types Packs/Day [...] Department Care Team (Late Contact Info) Description 04/16/2025 1:10 PM EDT Office Visit [facility] [address] [facility] [address] [place] [address] Antoni Dodson NP [address] [place] [address] 07/12/2025 1:00 PM EST Ancillary Procedure [facility] [address] [facility] [address] [place] [address] documented as of this encounter Procedures Procedure Name Priority Date/Time Associated Diagnosis Comments CARDIAC DEVICE CHECK- REMOTE- MURJ Routine 10/13/2024 12:01 PM EDT documented in this encounter Results * Cardiac device check - Remote- MURJ (10/13/2024 12:01 PM EDT) Date Time Interrogation Session [id number] CV DEVICE CHECK Type Interrogation Session Remote CV DEVICE CHECK Implantable Pulse Generator Senior Instructor MDT CV DEVICE CHECK Implantable Pulse Generator Type LADIES' HAT TRIMMER-P CV DEVICE CHECK Implantable Pulse Generator Model Desire Quad LADIES' HAT TRIMMER-P [id number] CV DEVICE CHECK Implantable Pulse Generator Serial Number [id number] CV DEVICE CHECK Implantable Pulse Generator Implant Date 20220531 CV DEVICE CHECK Battery Remaining Longevity 125.0 CV DEVICE CHECK Battery Voltage 3.010 CV D EVICE CHECK Battery PUBLIC HEALTH STAFF NURSE Trigger 2.595 CV DEVICE CHECK Battery Status Middle of Service CV DEVICE CHECK Yakov Statistic RA Percent Paced 78.27 CV DEVICE CHECK Yakov Statistic RV Percent Paced 0.30 CV DEVICE CHECK LADIES' HAT TRIMMER Statistic LV Percent Paced 97.35 CV DEVICE CHECK LADIES' HAT TRIMMER Statistic LADIES' HAT TRIMMER Percent Paced 0.26 CV DEVICE CHECK Atrial Tachy Statistic AT/AF Rickreall Percent 0.00 CV DEVICE CHECK Lead Channel Sensing Intrinsic Amplitude 3.875 CV DEVICE CHECK Lead Channel Setting Sensing Sensitivity 0.60 CV DEVICE CHECK Lead Channel Impedance Value 380 CV DEVICE CHECK Lead Channel Pacing Threshold Amplitude 0.875 CV DEVICE CHECK Lead Channel Pacing Threshold Pulse Width 0.4 CV DEVICE CHECK Lead Channel RA Pacing Threshold Date 2024-10-13 CV DEVICE CHECK Lead Channel Setting Pacing Amplitude 1.750 CV DEVICE CHECK Lead Channel Setting Pacing Pulse Width 0.4 CV DEVICE CHECK Lead Channel Sensing Intrinsic Amplitude 17.750 CV DEVICE CHECK Lead Channel Setting Sensing Sensitivity 0.90 CV DEVICE CHECK Lead Channel Impedance Value 399 CV DEVICE CHECK Lead Channel Pacing Threshold Amplitude 0.875 CV DEVICE CHECK Lead Channel Pacing Threshold Pulse Width 0.4 CV DEVICE CHECK Lead Channel RV Pacing Threshold Date 2024-10-13 CV DEVICE CHECK Lead Channel Setting Pacing Amplitude 2.000 CV DEVICE CHECK Lead Channel Setting Pacing Pulse Width 0.4 CV DEVICE CHECK Lead Channel Impedance Value 513 CV DEVICE CHECK Lead Channel Pacing Threshold Amplitude 0.750 CV DEVICE CHECK Lead Channel Pacing Threshold Pulse Width 0.4 CV DEVICE CHECK Lead Channel Pacing Threshold Date 2024-10-13 CV DEVICE CHECK Lead Channel Setting Pacing Amplitude 1.250 CV DEVICE CHECK Lead Channel Setting Pacing Pulse Width 0.4 CV DEVICE CHECK Yakov Setting Mode (NBG Code) DDD CV DEVICE CHECK Ventricular chambers paced during LADIES' HAT TRIMMER pacing. LVOnly CV DEVICE CHECK Yakov Setting Lower Rate Limit 60 CV DEVICE CHECK Yakov Setting AT Mode Switch Rate 171 CV DEVICE CHECK Yakov Setting Maximum Tracking Rate 130 CV DEVICE CHECK Yakov Setting Maximum Sensor Rate 120 CV DEVICE CHECK Yakov Setting PAV Delay 160 CV DEVICE CHECK Yakov Setting DENISA Delay 90 CV DEVICE CHECK LADIES' HAT TRIMMER LV-RV Delay 40 CV D EVICE CHECK [...] Anatomical Region Laterality Modality Device Interroga tion 10/13/2024 5:17 AM EDT Impressions 10/13/2024 11:18 AM EDT Heart Failure Diagnostic: Elevated Sent to Triage * Heart failure diagnostics assessed through the device * Status: Elevated Narrative Procedure Note Thais Laguerre PA - 10/13/2024 IMPRESSION: Heart Failure Diagnostic: Elevated Sent to Triage * Heart failure diagnostics assessed through the device * Status: Elevated Thais BARRIENTOS CV IMPLANTABLE CARDIAC DEVICE CA OCEDURES Final Result documented in this encounter Visit Diagnoses Not on filedocumented in this encounter Care Teams Healthcare Consulting Manager Relationship Specialty Start Date End Date Mechelle Ortega MD [address] [facility] [address] [place] [id number] PCP - General Internal Medicine 04/30/24 documented as of this encounter
--- OUTSIDE RECORDS SUMMARY | 2024-10-13 16:02 | XMS_ITS | Clinical Summary ---
Author Organization Unknown Care Team Providers Care Director Of Coding Name Role Phone BROTHERS RUI CONTI Unavailable U navailable JOHN PT, JAKE Unavailable Unavailable NAPOLITAN OT, MARC Unavailable Unavailable ERYN RN, JEFFERY Unavailable Unavailable YULIANA FLIGHT NURSE, RACIEL Unavailable Unavailrandolph LEÓN EPIC WILLOW SPECIALIST, CHINO Unavailable Unavailable Payers Payer Name Policy Type Policy Number Effective Date Expira tion Date MEDICARE.NGS.PDGM [id number] Problems Condition Name Condition Details Condition Category [...] HYPERCHOLEST EROLEMIA, UNSPECIFIED Active 06-17 00:00: 00 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 Active 08-24 00:00: [...] 2023-06 00:00: 00 07-15 00:00 :00 No [id number] PAIN 1 tablet EVERY 8 HOURS 1 tablet EVERY 8 HOURS (route: oral) Med Classific ation: Analgesic , Anti-infl ammatory or Antipyret ic tramadol 50 mg tablet 2023-06 00:00: 00 08-24 00:00 :00 No [id number] PAIN 1-2 tablet EVERY 8 HOURS 1-2 tablet EVERY 8 HOURS (route: oral) Med Classific ation: Analgesic , Anti-infl ammatory or Antipyret ic Entresto 24 mg-26 mg tablet 2023-06 00:00: 00 Yes [id number] HTN 1 tablet TWICE A DAY 1 tablet TWICE A DAY (route: oral) Med Classific ation: Cardiovas cular Therapy Agents spironolact one 25 mg tablet 2023-06 00:00: 00 Yes [id number] HEART FAILURE 1 tablet EVERY DAY 1 tablet EVERY DAY (route: oral) Med Classific ation: Cardiovas cular Therapy Agents acetaminoph en 500 mg tablet 2023-06 00:00: 00 08-24 00:00 :00 No [id number] PAIN 2 tablet 3 TIMES DAILY 2 tablet 3 TIMES DAILY (route: oral) Med Classific ation: Analgesic , Anti-infl ammatory or Antipyret ic aspirin 81 mg tablet,clifton yed release 09-16 00:00: 00 Yes [id number] DVT PROPHYLAXIS 1 tablet DAILY 1 tablet DAILY (route: oral) Med Classific ation: Hematolog ical Agents atorvastati n 80 mg tablet 2023-06 00:00: 00 Yes [id number] CHOLESTEROL 1 tablet DAILY 1 tablet DAILY (route: oral) Med Classific ation: Cardiovas cular Therapy Agents carvedilol 6.25 mg tablet 2023-06 00:00: 00 Yes [id number] HTN 1 tablet 2 TIMES DAILY 1 tablet 2 TIMES DAILY (route: oral) Med Classific ation: Cardiovas cular Therapy Agents Farxiga 10 mg tablet 2023-06 00:00: 00 08-24 00:00 :00 No [id number] WEIGHT LOSS 1 tablet DAILY 1 tablet DAILY (route: oral) Med Classific ation: Endocrine levothyroxi ne 100 mcg capsule 2023-06 00:00: 00 Yes [id number] THYROID 1 capsule DAILY 1 capsule DAILY (route: oral) Med Classific ation: Endocrine Miralax 17 gram oral powder packet 2023-06 00:00: 00 07-15 00:00 :00 No [id number] CONSTIPATIO N 1 packet DAILY 1 packet DAILY (route: oral) Med Classific ation: Gastroint estinal Therapy Agents naproxen 500 mg tablet 2023-06 00:00: 00 07-15 00:00 :00 No [id number] pain 1 tablet 2 TIMES DAILY 1 tablet 2 TIMES DAILY (route: oral) Med Classific ation: Analgesic , Anti-infl ammatory or Antipyret ic acetaminoph en ER 650 mg tablet,exte nded release 08-24 00:00: 00 Yes [id number] PAIN 1 tablet 2 TIMES DAILY 1 tablet 2 TIMES DAILY (route: oral) Med Classific ation: Analgesic , Anti-infl ammatory or Antipyret ic aspirin 325 mg tablet 08-19 00:00: 00 09-15 23:59 :00 No [id number] PROPHYLACTI C 1 tablet 2 TIMES DAILY 1 tablet 2 TIMES DAILY (route: oral) Med Classific ation: Analgesic , Anti-infl ammatory or Antipyret ic dapaglifloz in propanediol 10 mg tablet 08-24 00:00: 00 Yes [id number] BLOOD SUGAR 1 tablet DAILY 1 tablet DAILY (route: oral) Med Classific ation: Endocrine oxycodone 5 mg tablet 08-24 00:00: 00 Yes [id number] PAIN 1 tablet EVERY 4 HOURS 1 tablet EVERY 4 HOURS (route: oral) Med Classific ation: Analgesic , Anti-infl ammatory or Antipyret ic pantoprazol e 40 mg tablet,clifton yed release 08-24 00:00: 00 Yes [id number] GERD 1 tablet DAILY 1 tablet DAILY [...] TREAT INDICATED] Future Scheduled Test MEDICATION MANAGEMENT; RN/FLIGHT NURSE/QUILLER RUNNER TO REVIEW MEDICATIONS FOR INTERACTIONS, EFFECTIVENESS OF DRUG THERAPY, AND SIGNS/SYMPTOMS OF ADVERSE REACTIONS. MAY INSTRUCT AND REINFORCE MEDICATION TEACHING RELATED TO THE USE OF MEDICATIONS, DOSAGE, FREQUENCY, PURPOSE, SIDE EFFECTS, AND TO REPORT COMPLICATIONS. [code = MEDICATION MANAGEMENT; RN/FLIGHT NURSE/QUILLER RUNNER TO REVIEW MEDICATIONS FOR INTERACTIONS, EFFECTIVENESS OF DRUG THERAPY, AND SIGNS/SYMPTOMS OF ADVERSE REACTIONS. MAY INSTRUCT AND REINFORCE MEDICATION TEACHING RELATED TO THE USE OF MEDICATIONS, DOSAGE, FREQUENCY, PURPOSE, SIDE EFFECTS, AND TO REPORT COMPLICATIONS.] Future Scheduled Test FALL REDUC TION MANAGEMENT; RN TO ASSESS AND OBSERVE, FLIGHT NURSE/QUILLER RUNNER TO OBSERVE FALL RISK FACTORS AND EDUCATE PATIENT/CAREGIVER ON STRATEGIES TO MINIMIZE THE RISK OF FALLING. [code = FALL REDUCTION MANAGEMENT; RN TO ASSESS AND OBSERVE, FLIGHT NURSE/QUILLER RUNNER TO OBSERVE FALL RISK FACTORS AND EDUCATE PATIENT/CAREGIVER ON STRATEGIES TO MINIMIZE THE RISK OF FALLING.] Future Scheduled Test RN TO OBSE RVE, ASSESS, EVALUATE, AND DEVELOP AN INDIVIDUALIZED PLAN OF CARE. AGENCY MAY ACCEPT ORDERS FROM CONSULTING PHYSICIANS DR RUI GUERIN, DR AGUSTIN THOMASON. RN TO OBSERVE AND ASSESS, FLIGHT NURSE/QUILLER RUNNER TO OBSERVE FOR RISK FOR FALLS AND INSTRUCT IN FALL PREVENTION, HOME SAFETY, MEDICATION MANAGEMENT, INFECTION PREVENTION, AND NUTRITION MANAGEMENT. RN/FLIGHT NURSE/QUILLER RUNNER NURSE MAY PERFORM O2 SATURATION LEVEL ON ADMISSION AND PRN FOR SOB FOR RN TO ASSESS/FLIGHT NURSE TO OBSERVE PATIENT, WITH NOTIFICATION TO THE PHYSICIAN IF SATURATION IS 90% IN THE ABSENCE OF MORE SPECIFIC PARAMETERS FROM THE PHYSICIAN. AGENCY MAY PERFORM A RESUMPTION OF CARE VISIT FOLLOWING ANY HOSPITAL ADMISSION. RN/FLIGHT NURSE/QUILLER RUNNER TO MONITOR CO-MORBID CONDITIONS LISTED ON THE PLAN OF CARE AND ANY NEW CONDITIONS THAT PRESENT THEMSELVES DURING THIS EPISODE TO IDENTIFY CHANGES AND INTERVENE TO MINIMIZE COMPLICATIONS. [code = RN TO OBSERVE, ASSESS, EVALUATE, AND DEVELOP AN INDIVIDUALIZED PLAN OF CARE. AGENCY MAY ACCEPT ORDERS FROM CONSULTING PHYSICIANS DR RUI GUERIN, DR AGUSTIN THOMASON. RN TO OBSERVE AND ASSESS, FLIGHT NURSE/QUILLER RUNNER TO OBSERVE FOR RISK FOR FALLS AND INSTRUCT IN FALL PREVENTION, HOME SAFETY, MEDICATION MANAGEMENT, INFECTION PREVENTION, AND NUTRITION MANAGEMENT. RN/FLIGHT NURSE/QUILLER RUNNER NURSE MAY PERFORM O2 SATURATION LEVEL ON ADMISSION AND PRN FOR SOB FOR RN TO ASSESS/FLIGHT NURSE TO OBSERVE PATIENT, WITH NOTIFICATION TO THE PHYSICIAN IF SATURATION IS 90% IN THE ABSENCE OF MORE SPECIFIC PARAMETERS FROM THE PHYSICIAN. AGENCY MAY PERFORM A RESUMPTION OF CARE VISIT FOLLOWING ANY HOSPITAL ADMISSION. RN/FLIGHT NURSE/QUILLER RUNNER TO MONITOR CO-MORBID CONDITIONS LISTED ON THE PLAN OF CARE AND ANY NEW CONDITIONS THAT PRESENT THEMSELVES DURING THIS EPISODE TO IDENTIFY CHANGES AND INTERVENE TO MINIMIZE COMPLICATIONS.] Future Scheduled Test PAIN MANAG EMENT; RN TO ASSESS AND TEACH, QUILLER RUNNER/FLIGHT NURSE TO OBSERVE AND TEACH AND PROVIDE EDUCATION ON PAIN MANAGEMENT TECHNIQUES. [code = PAIN MANAGEMENT; RN TO ASSESS AND TEACH, QUILLER RUNNER/FLIGHT NURSE TO OBSERVE AND TEACH AND PROVIDE EDUCATION ON PAIN MANAGEMENT TECHNIQUES.] Future Scheduled Test RISK FOR H OSPITALIZATION; RN TO ASSESS/TEACH, QUILLER RUNNER/FLIGHT NURSE TO OBSERVE/TEACH PATIENT/CAREGIVER ON RISK FOR HOSPITALIZATION/EMERGENCY ROOM VISITS, TEACH SIGNS AND SYMPTOMS THAT PUT PATIENT AT RISK, WHEN TO NOTIFY NURSE/PHYSICIAN OF COMPLICATIONS/DECLINE, AND WHEN TO CALL 911. [code = RISK FOR HOSPITALIZATION; RN TO ASSESS/TEACH, QUILLER RUNNER/FLIGHT NURSE TO OBSERVE/TEACH PATIENT/CAREGIVER ON RISK FOR HOSPITALIZATION/EMERGENCY ROOM VISITS, TEACH SIGNS AND SYMPTOMS THAT PUT PATIENT AT RISK, WHEN TO NOTIFY NURSE/PHYSICIAN OF COMPLICATIONS/DECLINE, AND WHEN TO CALL 911.] Future Scheduled Test [facility]; RN TO ASSESS/TEACH, FLIGHT NURSE/QUILLER RUNNER TO OBSERVE/TEACH RELATED TO ALTERED CARDIOVASCULAR STATUS TO MINIMIZE COMPLICATIONS AND REDUCE HOSPITALIZATION. [code = CARDIOVASCULAR SYSTEM; RN TO ASSESS/TEACH, FLIGHT NURSE/QUILLER RUNNER TO OBSERVE/TEACH RELATED TO ALTERED CARDIOVASCULAR STATUS TO MINIMIZE COMPLICATIONS AND REDUCE HOSPITALIZATION.] Future Scheduled Test AGENCY MAY PERFORM A RESUMPTION OF CARE VISIT FOLLOWING ANY HOSPITAL ADMISSION. PT TO EVALUATE, OBSERVE / ASSESS, AND MONITOR, EPIC WILLOW SPECIALIST TO OBSERVE AND MONITOR, PROVIDE SKILLED THERAPEUTIC INTERVENTION, ACTIVITY, EDUCATION, AND TRAINING TO ADDRESS; PT/EPIC WILLOW SPECIALIST TO PROVIDE GAIT TRAINING FOR IMPROVED MOBILITY AND /OR TO NORMALIZE GAIT PATTERN NEUROMUSCULAR RE-EDUCATION / BALANCE / POSTURAL CONTROL (PT) THERAPEUTIC EXERCISES AND ESTABLISHING A HOME EXERCISE PROGRAM (PT/EPIC WILLOW SPECIALIST) PT/EPIC WILLOW SPECIALIST TO PROVIDE STAIR TRAINING BED TRANSFERS (PT/EPIC WILLOW SPECIALIST) CHAIR TRANSFERS (PT/EPIC WILLOW SPECIALIST) PT TO ASSESS / EPIC WILLOW SPECIALIST TO MONITOR FOR AND REPORT EARLY SIGNS OF ANTICOAGULANT TOXICITY TO THE PHYSICIAN AND/OR THE RN CLINICAL TECHNICAL APPLICATIONS SCIENTIST FOR PHYSICIAN NOTIFICATION AND TO PROVIDE PATIENT/CAREGIVER EDUCATION ON ANTICOAGULANT THERAPY PT / EPIC WILLOW SPECIALIST MAY EDUCATE ON PAIN MANAGEMENT CLINICALLY INDICATED, INCLUDING NON-PHARMACOLOGICAL PAIN REDUCTION TECHNIQUES AND USE OF CRYOTHERAPY UP TO 20 MIN AT A TIME FOR PAIN MANAGEMENT 4 TIMES PER DAY TO L HIP. PT / EPIC WILLOW SPECIALIST TO EDUCATE ON HIP REPLACEMENT SELF-MANAGEMENT PT TO ASSESS / EPIC WILLOW SPECIALIST TO MONITOR FOR HEART FAILURE EXACERBATION AND RECORD PATIENT REPORTED WEIGHT, AND NOTIFY THE PHYSICIAN AND/OR THE RN CLINICAL TECHNICAL APPLICATIONS SCIENTIST FOR PHYSICIAN NOTIFICATION OF HF EXACERBATION (2LB WEIGHT GAIN IN 1 DAY, 5LBS IN A WEEK OR 5 LBS OVER BASELINE; INCREASED SOB, EDEMA, NEEDING MORE PILLOWS AT NIGHT, CRACKLES IN BASIS OF THE LUNGS OR PMI SHIFT) [code = AGENCY MAY PERFORM A RESUMPTION OF CARE VISIT FOLLOWING ANY HOSPITAL ADMISSION. PT TO EVALUATE, OBSERVE / ASSESS, AND MONITOR, EPIC WILLOW SPECIALIST TO OBSERVE AND MONITOR, PROVIDE SKILLED THERAPEUTIC INTERVENTION, ACTIVITY, EDUCATION, AND TRAINING TO ADDRESS; PT/EPIC WILLOW SPECIALIST TO PROVIDE GAIT TRAINING FOR IMPROVED MOBILITY AND /OR TO NORMALIZE GAIT PATTERN NEUROMUSCULAR RE-EDUCATION / BALANCE / POSTURAL CONTROL (PT) THERAPEUTIC EXERCISES AND ESTABLISHING A HOME EXERCISE PROGRAM (PT/EPIC WILLOW SPECIALIST) PT/EPIC WILLOW SPECIALIST TO PROVIDE STAIR TRAINING BED TRANSFERS (PT/EPIC WILLOW SPECIALIST) CHAIR TRANSFERS (PT/EPIC WILLOW SPECIALIST) PT TO ASSESS / EPIC WILLOW SPECIALIST TO MONITOR FOR AND REPORT EARLY SIGNS OF ANTICOAGULANT TOXICITY TO THE PHYSICIAN AND/OR THE RN CLINICAL TECHNICAL APPLICATIONS SCIENTIST FOR PHYSICIAN NOTIFICATION AND TO PROVIDE PATIENT/CAREGIVER EDUCATION ON ANTICOAGULANT THERAPY PT / EPIC WILLOW SPECIALIST MAY EDUCATE ON PAIN MANAGEMENT CLINICALLY INDICATED, INCLUDING NON-PHARMACOLOGICAL PAIN REDUCTION TECHNIQUES AND USE OF CRYOTHERAPY UP TO 20 MIN AT A TIME FOR PAIN MANAGEMENT 4 TIMES PER DAY TO L HIP. PT / EPIC WILLOW SPECIALIST TO EDUCATE ON HIP REPLACEMENT SELF-MANAGEMENT PT TO ASSESS / EPIC WILLOW SPECIALIST TO MONITOR FOR HEART FAILURE EXACERBATION AND RECORD PATIENT REPORTED WEIGHT, AND NOTIFY THE PHYSICIAN AND/OR THE RN CLINICAL TECHNICAL APPLICATIONS SCIENTIST FOR PHYSICIAN NOTIFICATION OF HF EXACERBATION (2LB [...] End Date/Time Encounter Type Admission Type Attending [facility] Facility Care Department Encounter ID Discharge Date Discharge Status Discharge Condition Discharge Reason Percent Goals Met 2024-08-24 00:00:00 2024-10-22 00:00:00 Outpatient [facility] [id number] 53.85
--- OUTSIDE RECORDS SUMMARY | 2024-10-13 16:02 | XMS_ITS | Encounter Summary ---
Author Organization [facility] Address [address] [place] [address] Care Team Providers Care Head Buyer Tobacco Name Role Phone Mechelle Ortega MD Primary Care Provider [phone] Encounter Details Date Type Department Care Team ([facility] st Contact Info) Description 10/13/2024 Telephone [facility] - [facility] [address] [facility] [address] [place] [id number] Deshaun Esqueda MD 300 [facility] [address] [place] [address] Social History Tobacco Use Types Packs/Day Years [...] on file documented as of this encounter Progress Notes * Juliet Oliveira RN - 10/13/2024 1:37 PM EDT LMOM for pt to return call * Violette Carbajal MA - 10/13/2024 11:09 AM EDT Heart failure diagnostics available in this device are suggestive of volume overload. Please phone patient to assess for symptoms of heart failure exacerbation: Weight gain, orthopnea, PND, increasedexertional dyspnea, recent clinical events, dietary indiscretion. Please convey this information to the primary cardiology team or go to as appropriate. Thank you documented in this encounter Plan of Treatment Upcoming Encounters Date Type Department Care Team (Late st Contact Info) Description 04/16/2025 1:10 PM EDT Office Visit [facility] - [facility] [address] [facility] [address] [place] [address] Antoni Dodson NP [address] [place] [address] 07/12/2025 1:00 PM EST Ancillary Procedure [facility] - [facility] [address] [facility] [address] [place] [address] documented as of this encounter Visit Diagnoses Not on filedocumented in this encounter Care Teams Head Buyer Tobacco Relationship Specialty Start Date End Date Mechelle Ortega MD [address] [place] [id number] PCP - General Internal Medicine 04/30/24 documented as of this encounter
--- OUTSIDE RECORDS SUMMARY | 2024-10-13 16:02 | XMS_ITS | Clinical Summary ---
Author Organization [address] [place] [address] Address [address] [place] [address] Phone Care Team Providers Care Dairy Equipment Mechanic Name Role Phone Mechelle Ortega MD Primary Care Provider Allergies Active Allergy Reactions Criticality Noted Date Comments Penicillins Hives,Other 07/20/2013 Medications sacubitriL-vals carolyn (Entresto) 24-26 mg per tablet Take 1 tablet by mouth 2 (two) times a day. 04/10/20 24 Active levothyroxine (SYNTHROID, LEVOTHROID) 100 mcg tablet Take 1 Tablet by mouth. 6 days a week. Active atorvastatin (LIPITOR) 80 mg tablet Take 1 tablet (80 mg total) by mouth at bedtime. Active dapagliflozin propanediol (Farxiga) 10 mg tabletIndicatio ns:Ischemic cardiomyopathy, ST elevation (STEMI) myocardial infarction involving left anterior descending coronary artery (CMS/HCC V24, CMS/HCC V28) TAKE 1 TABLET BY MOUTH EVERY DAY 90 tablet 2 05/29/20 24 Active spironolactone (ALDACTONE) 25 mg tabletIndicatio ns:Ischemic cardiomyopathy, ST elevation (STEMI) myocardial infarction involving left anterior descending coronary artery (CMS/HCC V24, CMS/HCC V28) TAKE 1 TABLET BY MOUTH EVERY DAY 90 tablet 3 06/22/19 25 Active aspirin 81 mg chewable tablet Chew 1 tablet (81 mg total) 1 (one) time each day. Active tramadol HCl (TRAMADOL ORAL) Take 5 mg/hr by mouth 1 (one) time. Max Daily Amount: 5 mg/hr Active furosemide (LASIX) 20 mg tablet TAKE 1 TABLET BY MOUTH DAILY NEEDED AND DIRECTED BY SEO INTERN 20 tablet 09/24/19 25 Active carvediloL (COREG) 6.25 mg tablet Take 1 tablet (6.25 mg total) by mouth 2 (two) times a day with meals. 180 each 3 09/24/19 25 026 Active carvediloL (COREG) 6.25 mg tablet Take 1 tablet (6.25 mg total) by mouth 2 (two) times a day with meals. 02/25/20 24 025 Discontin ued(Reord er) furosemide (LASIX) 20 mg tablet TAKE 1 TABLET BY MOUTH DAILY NEEDED AND DIRECTED BY SEO INTERN 90 tablet 07/21/19 25 025 Discontin ued(Reord er) Active Problems Problem Noted Date Diagnosed Date Acute ST elevation myocardia l infarction (STEMI) due to occlusion of distal portion of left anterior descending (LAD) coronary artery (CMS/[facility] V24, CMS/[facility] V28) 07/26/2022 Overview (05/12/2024): See full history under [...] pain. HTN (hypertension) 07/25/2022 Ischemic dilated cardiomyopathy (CMS/HCC V24, CM S/HCC V28) 07/25/2022 Overview (05/12/2024): - Status post admission to [facility] in May [address] CO - Taken urgently for left heart cath [...] Encounters Date Type Department Care Team Description 10/13/2024 12:05 PM EDT Ancillary Procedure [facility] [address] [place] [address] Arrived 10/13/2024 Telephone [facility] [address] [place] [address] Deshaun Esqueda MD 09/23/2024 3:00 PM EDT Office Visit [facility] [address] [place] [address] Chelita Todd MD 09/18/2024 11:00 PM EDT Ancillary Procedure [facility] [address] [place] [address] 09/18/2024 6:30 PM EDT Ancillary Procedure [facility] [address] [place] [address] 09/16/2024 2:10 AM EDT Ancillary Procedure [facility] [address] [place] [address] 08/20/2024 Telephone [facility] [address] [place] [address] Chelita Todd MD Hypotension 08/19/2024 3:20 PM EST Ancillary Procedure [facility] [address] [place] [address] from Last 3 Months Surgical History Surgery [...] Sign Reading Time Taken Comments Blood Pressure 110/60 09/23/2024 2:56 PM EDT Pulse 60 09/23/2024 2:56 PM EDT Temperature - - Respiratory Rate - - Oxygen Saturation 98% 09/23/2024 2:56 PM EDT Inhaled Oxygen Concentration - - Weight 60.3 kg (133 lb) 09/23/2024 2:56 PM EDT Height 144.8 cm (4' 9 ) 09/23/2024 2:56 PM EDT Body Mass Index 28.78 09/23/2024 2:56 PM EDT Plan of Treatment Upcoming Encounters Date Type Department Care Team (Late st Contact Info) Description 04/16/2025 1:10 PM EDT Office Visit [facility] [address] [facility] [place] [address] [place] [phone] Antoni Dodson NP [address] [place] [address] 07/12/2025 1:00 PM EST Ancillary Procedure [facility] [address] [facility] [place] [address] [place] [address] Health Maintenance Due Date Last Done Comments [...] age to complete this topic Meningococcal B Vaccine Aged Out No l onger eligible based on patient's age to complete [...] this topic Medical Devices Implanted Type Area Crew Member Device Identifier Shelf Expiration Date Model / Serial / Lot Medt-Card Desire Quad Hearing Aide Technician-P [id number] Implanted:05/17 by Deshaun Esqueda MD (Quantity not on file) Cardiac STONEMASON HELPER-P Left: Chest [employer] - CARDIAC RHYTH-CRDM DESIRE QUAD STONEMASON HELPER-P [id number] / [id number] / Procedures Procedure Name Priority Date/Time Associated Diagnosis Comments CARDIAC DEVICE CHECK- REMOTE- MURJ Routine 10/13/2024 12:01 PM EDT CARDIAC DEVICE CHECK- REMOTE- MURJ Routine 09/18/2024 10:55 PM EDT CARDIAC DEVICE CHECK- REMOTE- MURJ Routine 09/18/2024 6:27 PM EDT CARDIAC DEVICE CHECK- REMOTE- MURJ Routine 09/16/2024 2:08 AM EDT CARDIAC DEVICE CHECK- REMOTE- MURJ Routine 08/19/2024 3:16 PM EST BASIC METABOLIC PANEL Routine 07/08/2024 12:00 PM EST Other congestive heart failure (CMS/HCC V24, CMS/HCC V28) from Last 3 Months or Most Recently Relevant to Health Maintenance Results * Cardiac device check - Remote- MURJ (10/13/2024 12:01 PM EDT) Only the most recent of5 resultswithin the time period is included. Date Time Interrogation Session [id number] CV DEVICE CHECK Type Interrogation Session Remote CV DEVICE CHECK Implantable Pulse Generator Crew Member MDT CV DEVICE CHECK Implantable Pulse Generator Type STONEMASON HELPER-P CV DEVICE CHECK Implantable Pulse Generator Model Desire Quad STONEMASON HELPER-P [id number] CV DEVICE CHECK Implantable Pulse Generator Serial Number [id number] CV DEVICE CHECK Implantable Pulse Generator Implant Date 20220531 CV DEVICE CHECK Battery Remaining Longevity 125.0 CV DEVICE CHECK Battery Voltage 3.010 CV D EVICE CHECK Battery COLLAR BASTER JUMPBASTING Trigger 2.595 CV DEVICE CHECK Battery Status Middle of Service CV DEVICE CHECK Yakov Statistic RA Percent Paced 78.27 CV DEVICE CHECK Yakov Statistic RV Percent Paced 0.30 CV DEVICE CHECK STONEMASON HELPER Statistic LV Percent Paced 97.35 CV DEVICE CHECK STONEMASON HELPER Statistic STONEMASON HELPER Percent Paced 0.26 CV DEVICE CHECK Atrial Tachy Statistic AT/AF [place] Percent 0.00 CV DEVICE CHECK Lead Channel [...] CV DEVICE CHECK Ventricular chambers paced during STONEMASON HELPER pacing. LVOnly CV DEVICE CHECK Yakov Setting Lower Rate Limit 60 CV DEVICE CHECK Yakov Setting AT Mode Switch Rate 171 CV DEVICE CHECK Yakov Setting Maximum Tracking Rate 130 CV DEVICE CHECK Yakov Setting Maximum Sensor Rate 120 CV DEVICE CHECK Yakov Setting PAV Delay 160 CV DEVICE CHECK Yakov Setting DENISA Delay 90 CV DEVICE CHECK STONEMASON HELPER LV-RV Delay 40 CV D EVICE CHECK [...] Elevated Thais BARRIENTOS CV IMPLANTABLE CARDIAC DEVICE OH OCEDURES Final Result * Basic metabolic panel (07/08/2024 12:00 PM EST) Sodium 140 133 - 145 mmol/L LAB CHEMISTRY METHOD 07/08/2024 4:32 PM [facility] Potassium 4.7 3.5 - 5.5 mmol/L LAB CHEMISTRY METHOD 07/08/2024 4:32 PM [facility] Chloride 110 96 - 110 mmol/L LAB CHEMISTRY METHOD 07/08/2024 4:32 PM [facility] CO2 27 21 - 32 mmol/L LAB CHEMISTRY METHOD 07/08/2024 4:32 PM [facility] Anion Gap 3 3 - 11 LAB CHEMISTRY METHOD 07/08/2024 4:32 PM [facility] Glucose 81 70 - 100 mg/dL LAB CHEMISTRY METHOD 07/08/2024 4:32 PM [facility] BUN 16 5 - 25 mg/dL LAB CHEMISTRY METHOD 07/08/2024 4:32 PM EST [facility] Creatinine 0.61 0.50 - 1.10 mg/dL LAB CHEMISTRY METHOD 07/08/2024 4:32 PM EST [facility] eGFR 110 >=60 mL/min/1. 73m2 LAB CHEMISTRY METHOD 07/08/2024 4:32 PM EST [facility] Comment:Calculation based on the??Chronic Kidney Disease Epidemiology Collaboration (CKD-EPI) equation refit??without adjustment for race. BUN/Creatinine Ratio 26.2 LAB CHEMISTRY METHOD 07/08/2024 4:32 PM [facility] Calcium 9.3 8.5 - 10.5 mg/dL LAB CHEMISTRY METHOD 07/08/2024 4:32 PM [facility] Blood Venous blood specimen / Unknown Venipuncture / Unknown 07/08/2024 12:00 PM EST 07/08/2024 12:33 PM EST Julia Flynn SECRETARY RECEPTIONIST LAB BLOOD ORDERABLES F inal Result [facility] [address] [place] [address], from Last 3 Months or Most Recently Relevant to Health Maintenance Insurance MEDICARE MEDICAID - [place] Care Teams Dairy Equipment Mechanic Relationship Specialty Start Date End Date Mechelle Ortega MD [address] [address] PCP - General Internal Medicine 04/30/24
== END 2024-10-13 13:52 | disposition home or self-care (01) ==
LOC: HO.HAP 13:51
PROVIDERS: Visit Provider Internal Medicine
DX: Z13.89 Encounter for screening for other disorder (principal)

== ENCOUNTER 2024-10-22 14:54 | Outpatient (REF) | payer MEDICARE, MEDICAID, SELFPAY ==
--- OUTSIDE RECORDS SUMMARY | 2024-10-22 15:32 | XMS_ITS | Clinical Summary ---
Author Organization Unknown Care Team Providers Care Overhauler Helper Name Role Phone BROTHERS RUI CONTI Unavailable U navailable JOHN PT, JAKE Unavailable Unavailable [place] OT, MARC Unavailable Unavailable ERYN RN, JEFFERY Unavailable Unavailable YULIANA PLASTICS PRODUCTION MACHINE OPERATOR, RACIEL Unavailable Unavailrandolph LEÓN PHYSICIST [place], [place] Unavailable Unavailable Payers Payer Name Policy Type Policy Number Effective Date Expira tion Date MEDICARE.NGS.PDGM [id number] Problems Condition Name Condition Details Condition Category [...] HYPERCHOLEST EROLEMIA, UNSPECIFIED Active 06-17 00:00: 00 [facility]DC (CURRENT) USE OF ASPIRIN Active 08-24 00:00: [...] 2023-06 00:00: 00 07-15 00:00 :00 No [id number] PAIN 1 tablet EVERY 8 HOURS 1 tablet EVERY 8 HOURS (route: oral) Med Classific ation: Analgesic , Anti-infl ammatory or Antipyret ic tramadol 50 mg tablet 2023-06 00:00: 00 08-24 00:00 :00 No [id number] PAIN 1-2 tablet EVERY 8 HOURS 1-2 tablet EVERY 8 HOURS (route: oral) Med Classific ation: Analgesic , Anti-infl ammatory or Antipyret ic Entresto 24 mg-26 mg tablet 2023-06 00:00: 00 Yes [id number] HTN 1 tablet TWICE A DAY 1 tablet TWICE A DAY (route: oral) Med Classific ation: Cardiovas cular Therapy Agents spironolact one 25 mg tablet 2023-06 00:00: 00 Yes [id number] HEART FAILURE 1 tablet EVERY DAY 1 tablet EVERY DAY (route: oral) Med Classific ation: Cardiovas cular Therapy Agents acetaminoph en 500 mg tablet 2023-06 00:00: 00 08-24 00:00 :00 No [id number] PAIN 2 tablet 3 TIMES DAILY 2 tablet 3 TIMES DAILY (route: oral) Med Classific ation: Analgesic , Anti-infl ammatory or Antipyret ic aspirin 81 mg tablet,[place] yed release 09-16 00:00: 00 Yes [id number] DVT PROPHYLAXIS 1 tablet DAILY 1 tablet DAILY (route: oral) Med Classific ation: Hematolog ical Agents atorvastati n 80 mg tablet 2023-06 00:00: 00 Yes [id number] CHOLESTEROL 1 tablet DAILY 1 tablet DAILY (route: oral) Med Classific ation: Cardiovas cular Therapy Agents carvedilol 6.25 mg tablet 2023-06 00:00: 00 Yes [id number] HTN 1 tablet 2 TIMES DAILY 1 tablet 2 TIMES DAILY (route: oral) Med Classific ation: Cardiovas cular Therapy Agents Farxiga 10 mg tablet 2023-06 00:00: 00 08-24 00:00 :00 No [id number] WEIGHT LOSS 1 tablet DAILY 1 tablet DAILY (route: oral) Med Classific ation: Endocrine levothyroxi ne 100 mcg capsule 2023-06 00:00: 00 Yes [id number] THYROID 1 capsule DAILY 1 capsule DAILY (route: oral) Med Classific ation: Endocrine Miralax 17 gram oral powder packet 2023-06 00:00: 00 07-15 00:00 :00 No [id number] CONSTIPATIO N 1 packet DAILY 1 packet DAILY (route: oral) Med Classific ation: Gastroint estinal Therapy Agents naproxen 500 mg tablet 2023-06 00:00: 00 07-15 00:00 :00 No [id number] pain 1 tablet 2 TIMES DAILY 1 tablet 2 TIMES DAILY (route: oral) Med Classific ation: Analgesic , Anti-infl ammatory or Antipyret ic acetaminoph en ER 650 mg tablet,exte nded release 08-24 00:00: 00 Yes [id number] PAIN 1 tablet 2 TIMES DAILY 1 tablet 2 TIMES DAILY (route: oral) Med Classific ation: Analgesic , Anti-infl ammatory or Antipyret ic aspirin 325 mg tablet 08-19 00:00: 00 09-15 23:59 :00 No [id number] PROPHYLACTI C 1 tablet 2 TIMES DAILY 1 tablet 2 TIMES DAILY (route: oral) Med Classific ation: Analgesic , Anti-infl ammatory or Antipyret ic dapaglifloz in propanediol 10 mg tablet 08-24 00:00: 00 Yes [id number] BLOOD SUGAR 1 tablet DAILY 1 tablet DAILY (route: oral) Med Classific ation: Endocrine oxycodone 5 mg tablet 08-24 00:00: 00 Yes [id number] PAIN 1 tablet EVERY 4 HOURS 1 tablet EVERY 4 HOURS (route: oral) Med Classific ation: Analgesic , Anti-infl ammatory or Antipyret ic pantoprazol e 40 mg tablet,[place]if[place] yed release 08-24 00:00: 00 Yes [id number] GERD 1 tablet DAILY 1 tablet DAILY (route: oral) Med Classific ation: Gastroint estinal Therapy Agents Vital Signs Vital Name Observation Time Observation Value Commen ts Temperature 2024-10-20 13:09:00.000 97.4 [degF] Temperature 2024-10-08 10:07:00.000 97.4 [degF] Temperature 2024-09-10 13:50:00.000 97.6 [degF] Temperature 2024-09-04 12:18:00.000 96.8 [degF] Temperature 2024-08-31 12:20:00.000 97.5 [degF] Temperature 2024-08-24 12:07:00.000 98.2 [degF] Height 2024-08-24 12:07:00.000 57 [in_us] Pulse 2024-10-20 13:09:00.000 60 /min Pulse 2024-10-08 10:07:00.000 60 /min Pulse 2024-09-10 23:45:00.000 60 /min Pulse 2024-09-04 12:18:00.000 60 /min Pulse 2024-08-31 12:20:00.000 60 /min Pulse 2024-08-24 12:07:00.000 60 /min O2 Saturation (%) 2024-10-20 13:09:00.000 100 % O2 Saturation (%) 2024-10-08 10:07:00.000 100 % O2 Saturation (%) 2024-09-10 13:50:00.000 98 % O2 Saturation (%) 2024-09-04 12:18:00.000 96 % O2 Saturation (%) 2024-08-31 12:20:00.000 98 % O2 Saturation (%) 2024-08-24 12:07:00.000 98 % Respirations 2024-10-20 13:09:00.000 16 /min Respirations 2024-10-08 10:07:00.000 16 /min Respirations 2024-09-10 13:50:00.000 16 /min Respirations 2024-09-04 12:18:00.000 18 /min Respirations 2024-08-31 12:20:00.000 16 /min Respirations 2024-08-24 12:07:00.000 18 /min Weight (lbs) 2024-10-20 13:10:00.000 134 [lb_av] Weight (lbs) 2024-08-24 12:07:00.000 0.1 [lb_av] Systolic Blood Pressure 2024-10-20 13:09:00.000 110 mm [Hg] Systolic Blood Pressure 2024-10-08 10:07:00.000 94 mm[ Hg] Systolic Blood Pressure 2024-09-10 13:50:00.000 120 mm [Hg] Systolic Blood Pressure 2024-09-04 12:18:00.000 110 mm [Hg] Systolic Blood Pressure 2024-08-31 12:20:00.000 90 mm[ Hg] Systolic Blood Pressure 2024-08-24 12:07:00.000 100 mm [Hg] Diastolic Blood Pressure 2024-10-20 13:09:00.000 60 mm [Hg] Diastolic Blood Pressure 2024-10-08 10:07:00.000 [...] TREAT INDICATED] Future Scheduled Test MEDICATION MANAGEMENT; RN/PLASTICS PRODUCTION MACHINE OPERATOR/DIRECTOR OF SOCIAL WORK TO REVIEW MEDICATIONS FOR INTERACTIONS, EFFECTIVENESS OF DRUG THERAPY, AND SIGNS/SYMPTOMS OF ADVERSE REACTIONS. MAY INSTRUCT AND REINFORCE MEDICATION TEACHING RELATED TO THE USE OF MEDICATIONS, DOSAGE, FREQUENCY, PURPOSE, SIDE EFFECTS, AND TO REPORT COMPLICATIONS. [code = MEDICATION MANAGEMENT; RN/PLASTICS PRODUCTION MACHINE OPERATOR/DIRECTOR OF SOCIAL WORK TO REVIEW MEDICATIONS FOR INTERACTIONS, EFFECTIVENESS OF DRUG THERAPY, AND SIGNS/SYMPTOMS OF ADVERSE REACTIONS. MAY INSTRUCT AND REINFORCE MEDICATION TEACHING RELATED TO THE USE OF MEDICATIONS, DOSAGE, FREQUENCY, PURPOSE, SIDE EFFECTS, AND TO REPORT COMPLICATIONS.] Future Scheduled Test FALL REDUC TION MANAGEMENT; RN TO ASSESS AND OBSERVE, PLASTICS PRODUCTION MACHINE OPERATOR/DIRECTOR OF SOCIAL WORK TO OBSERVE FALL RISK FACTORS AND EDUCATE PATIENT/CAREGIVER ON STRATEGIES TO MINIMIZE THE RISK OF FALLING. [code = FALL REDUCTION MANAGEMENT; RN TO ASSESS AND OBSERVE, PLASTICS PRODUCTION MACHINE OPERATOR/DIRECTOR OF SOCIAL WORK TO OBSERVE FALL RISK FACTORS AND EDUCATE PATIENT/CAREGIVER ON STRATEGIES TO MINIMIZE THE RISK OF FALLING.] Future Scheduled Test RN TO OBSE RVE, ASSESS, EVALUATE, AND DEVELOP AN INDIVIDUALIZED PLAN OF CARE. AGENCY MAY ACCEPT ORDERS FROM CONSULTING PHYSICIANS DR RUI GUERIN, DR AGUSTIN THOMASON. RN TO OBSERVE AND ASSESS, PLASTICS PRODUCTION MACHINE OPERATOR/DIRECTOR OF SOCIAL WORK TO OBSERVE FOR RISK FOR FALLS AND INSTRUCT IN FALL PREVENTION, HOME SAFETY, MEDICATION MANAGEMENT, INFECTION PREVENTION, AND NUTRITION MANAGEMENT. RN/PLASTICS PRODUCTION MACHINE OPERATOR/DIRECTOR OF SOCIAL WORK NURSE MAY PERFORM O2 SATURATION LEVEL ON ADMISSION AND PRN FOR SOB FOR RN TO ASSESS/PLASTICS PRODUCTION MACHINE OPERATOR TO OBSERVE PATIENT, WITH NOTIFICATION TO THE PHYSICIAN IF SATURATION IS 90% IN THE ABSENCE OF MORE SPECIFIC PARAMETERS FROM THE PHYSICIAN. AGENCY MAY PERFORM A RESUMPTION OF CARE VISIT FOLLOWING ANY HOSPITAL ADMISSION. RN/PLASTICS PRODUCTION MACHINE OPERATOR/DIRECTOR OF SOCIAL WORK TO MONITOR CO-MORBID CONDITIONS LISTED ON THE PLAN OF CARE AND ANY NEW CONDITIONS THAT PRESENT THEMSELVES DURING THIS EPISODE TO IDENTIFY CHANGES AND INTERVENE TO MINIMIZE COMPLICATIONS. [code = RN TO OBSERVE, ASSESS, EVALUATE, AND DEVELOP AN INDIVIDUALIZED PLAN OF CARE. AGENCY MAY ACCEPT ORDERS FROM CONSULTING PHYSICIANS DR RUI GUERIN, DR AGUSTIN THOMASON. RN TO OBSERVE AND ASSESS, PLASTICS PRODUCTION MACHINE OPERATOR/DIRECTOR OF SOCIAL WORK TO OBSERVE FOR RISK FOR FALLS AND INSTRUCT IN FALL PREVENTION, HOME SAFETY, MEDICATION MANAGEMENT, INFECTION PREVENTION, AND NUTRITION MANAGEMENT. RN/PLASTICS PRODUCTION MACHINE OPERATOR/DIRECTOR OF SOCIAL WORK NURSE MAY PERFORM O2 SATURATION LEVEL ON ADMISSION AND PRN FOR SOB FOR RN TO ASSESS/PLASTICS PRODUCTION MACHINE OPERATOR TO OBSERVE PATIENT, WITH NOTIFICATION TO THE PHYSICIAN IF SATURATION IS 90% IN THE ABSENCE OF MORE SPECIFIC PARAMETERS FROM THE PHYSICIAN. AGENCY MAY PERFORM A RESUMPTION OF CARE VISIT FOLLOWING ANY HOSPITAL ADMISSION. RN/PLASTICS PRODUCTION MACHINE OPERATOR/DIRECTOR OF SOCIAL WORK TO MONITOR CO-MORBID CONDITIONS LISTED ON THE PLAN OF CARE AND ANY NEW CONDITIONS THAT PRESENT THEMSELVES DURING THIS EPISODE TO IDENTIFY CHANGES AND INTERVENE TO MINIMIZE COMPLICATIONS.] Future Scheduled Test PAIN MANAG EMENT; RN TO ASSESS AND TEACH, DIRECTOR OF SOCIAL WORK/PLASTICS PRODUCTION MACHINE OPERATOR TO OBSERVE AND TEACH AND PROVIDE EDUCATION ON PAIN MANAGEMENT TECHNIQUES. [code = PAIN MANAGEMENT; RN TO ASSESS AND TEACH, DIRECTOR OF SOCIAL WORK/PLASTICS PRODUCTION MACHINE OPERATOR TO OBSERVE AND TEACH AND PROVIDE EDUCATION ON PAIN MANAGEMENT TECHNIQUES.] Future Scheduled Test RISK FOR H OSPITALIZATION; RN TO ASSESS/TEACH, DIRECTOR OF SOCIAL WORK/PLASTICS PRODUCTION MACHINE OPERATOR TO OBSERVE/TEACH PATIENT/CAREGIVER ON RISK FOR HOSPITALIZATION/EMERGENCY ROOM VISITS, TEACH SIGNS AND SYMPTOMS THAT PUT PATIENT AT RISK, WHEN TO NOTIFY NURSE/PHYSICIAN OF COMPLICATIONS/DECLINE, AND WHEN TO CALL 911. [code = RISK FOR HOSPITALIZATION; RN TO ASSESS/TEACH, DIRECTOR OF SOCIAL WORK/PLASTICS PRODUCTION MACHINE OPERATOR TO OBSERVE/TEACH PATIENT/CAREGIVER ON RISK FOR HOSPITALIZATION/EMERGENCY ROOM VISITS, TEACH SIGNS AND SYMPTOMS THAT PUT PATIENT AT RISK, WHEN TO NOTIFY NURSE/PHYSICIAN OF COMPLICATIONS/DECLINE, AND WHEN TO CALL 911.] Future Scheduled Test CARDIOVASC ULAR SYSTEM; RN TO ASSESS/TEACH, PLASTICS PRODUCTION MACHINE OPERATOR/DIRECTOR OF SOCIAL WORK TO OBSERVE/TEACH RELATED TO ALTERED CARDIOVASCULAR STATUS TO MINIMIZE COMPLICATIONS AND REDUCE HOSPITALIZATION. [code = CARDIOVASCULAR SYSTEM; RN TO ASSESS/TEACH, PLASTICS PRODUCTION MACHINE OPERATOR/DIRECTOR OF SOCIAL WORK TO OBSERVE/TEACH RELATED TO ALTERED CARDIOVASCULAR STATUS TO MINIMIZE COMPLICATIONS AND REDUCE HOSPITALIZATION.] Future Scheduled Test AGENCY MAY PERFORM A RESUMPTION OF CARE VISIT FOLLOWING ANY HOSPITAL ADMISSION. PT TO EVALUATE, OBSERVE / ASSESS, AND MONITOR, PHYSICIST [place] TO OBSERVE AND MONITOR, PROVIDE SKILLED THERAPEUTIC INTERVENTION, ACTIVITY, EDUCATION, AND TRAINING TO ADDRESS; PT/PHYSICIST [place] TO PROVIDE GAIT TRAINING FOR IMPROVED MOBILITY AND /OR TO NORMALIZE GAIT PATTERN NEUROMUSCULAR RE-EDUCATION / BALANCE / POSTURAL CONTROL (PT) THERAPEUTIC EXERCISES AND ESTABLISHING A HOME EXERCISE PROGRAM (PT/PHYSICIST [place]) PT/PHYSICIST [place] TO PROVIDE STAIR TRAINING BED TRANSFERS (PT/PHYSICIST [place]) CHAIR TRANSFERS (PT/PHYSICIST [place]) PT TO ASSESS / PHYSICIST [place] TO MONITOR FOR AND REPORT EARLY SIGNS OF ANTICOAGULANT TOXICITY TO THE PHYSICIAN AND/OR THE RN CLINICAL SITE RELIABILITY ENGINEER FOR PHYSICIAN NOTIFICATION AND TO PROVIDE PATIENT/CAREGIVER EDUCATION ON ANTICOAGULANT THERAPY PT / PHYSICIST [place] MAY EDUCATE ON PAIN MANAGEMENT CLINICALLY INDICATED, INCLUDING NON-PHARMACOLOGICAL PAIN REDUCTION TECHNIQUES AND USE OF CRYOTHERAPY UP TO 20 MIN AT A TIME FOR PAIN MANAGEMENT 4 TIMES PER DAY TO L HIP. PT / PHYSICIST [place] TO EDUCATE ON HIP REPLACEMENT SELF-MANAGEMENT PT TO ASSESS / PHYSICIST [place] TO MONITOR FOR HEART FAILURE EXACERBATION AND RECORD PATIENT REPORTED WEIGHT, AND NOTIFY THE PHYSICIAN AND/OR THE RN CLINICAL SITE RELIABILITY ENGINEER FOR PHYSICIAN NOTIFICATION OF HF EXACERBATION (2LB WEIGHT GAIN IN 1 DAY, 5LBS IN A WEEK OR 5 LBS OVER BASELINE; INCREASED SOB, EDEMA, NEEDING MORE PILLOWS AT NIGHT, CRACKLES IN BASIS OF THE LUNGS OR PMI SHIFT) [code = AGENCY MAY PERFORM A RESUMPTION OF CARE VISIT FOLLOWING ANY HOSPITAL ADMISSION. PT TO EVALUATE, OBSERVE / ASSESS, AND MONITOR, PHYSICIST [place] TO OBSERVE AND MONITOR, PROVIDE SKILLED THERAPEUTIC INTERVENTION, ACTIVITY, EDUCATION, AND TRAINING TO ADDRESS; PT/PHYSICIST [place] TO PROVIDE GAIT TRAINING FOR IMPROVED MOBILITY AND /OR TO NORMALIZE GAIT PATTERN NEUROMUSCULAR RE-EDUCATION / BALANCE / POSTURAL CONTROL (PT) THERAPEUTIC EXERCISES AND ESTABLISHING A HOME EXERCISE PROGRAM (PT/PHYSICIST [place]) PT/PHYSICIST [place] TO PROVIDE STAIR TRAINING BED TRANSFERS (PT/PHYSICIST [place]) CHAIR TRANSFERS (PT/PHYSICIST [place]) PT TO ASSESS / PHYSICIST [place] TO MONITOR FOR AND REPORT EARLY SIGNS OF ANTICOAGULANT TOXICITY TO THE PHYSICIAN AND/OR THE RN CLINICAL SITE RELIABILITY ENGINEER FOR PHYSICIAN NOTIFICATION AND TO PROVIDE PATIENT/CAREGIVER EDUCATION ON ANTICOAGULANT THERAPY PT / PHYSICIST [place] MAY EDUCATE ON PAIN MANAGEMENT CLINICALLY INDICATED, INCLUDING NON-PHARMACOLOGICAL PAIN REDUCTION TECHNIQUES AND USE OF CRYOTHERAPY UP TO 20 MIN AT A TIME FOR PAIN MANAGEMENT 4 TIMES PER DAY TO L HIP. PT / PHYSICIST [place] TO EDUCATE ON HIP REPLACEMENT SELF-MANAGEMENT PT TO ASSESS / PHYSICIST [place] TO MONITOR FOR HEART FAILURE EXACERBATION AND RECORD PATIENT REPORTED WEIGHT, AND NOTIFY THE PHYSICIAN AND/OR THE RN CLINICAL SITE RELIABILITY ENGINEER FOR PHYSICIAN NOTIFICATION OF HF EXACERBATION (2LB WEIGHT GAIN IN 1 DAY, 5LBS IN A WEEK OR 5 LBS OVER BASELINE; INCREASED SOB, EDEMA, NEEDING MORE PILLOWS AT NIGHT, CRACKLES IN BASIS OF THE LUNGS OR PMI SHIFT)] Goal 2024-10-20 Patient Goal - HAVE NO MORE HIP [...] REMAIN WELL CONTROLLED THROUGHOUT EPISODE OF CARE. Reason for Visit INDEPENDENT WITH USE OF ASSISTIVE DEVICE Encounters Start Date/Time End Date/Time Encounter Type Admission Type Attending [facility] Care Facility Care Department Encounter ID Discharge Date Discharge Status Discharge Condition Discharge Reason Percent Goals Met 2024-08-24 00:00:00 2024-10-20 00:00:00 Outpatient JAKE MURRAY [facility] ED [id number] 2024-10-20 00:00:00 DISCHARGE TO HOME OR SELF CARE INDEPENDEN T WITH USE OF ASSISTIVE DEVICE HH OR PAL- GOALS MET 96.15
--- OUTSIDE RECORDS SUMMARY | 2024-10-22 15:32 | XMS_ITS | Clinical Summary ---
Author Organization Unknown Care Team Providers Care Urologist Physician Name Role Phone BROTHERS RUI CONTI Unavailable U navailable JOHN PT, JAKE Unavailable Unavailable NAPOLITAN OT, MARC Unavailable Unavailable ERYN RN, JEFFERY Unavailable Unavailable YULIANA CRAS, RACIEL Unavailable Unavailrandolph LEÓN PAINT SPECIALIST, [place] Unavailable Unavailable Payers Payer Name Policy Type Policy Number Effective Date Expira tion Date MEDICARE.NGS.PDGM [id number] Problems Condition Name Condition Details Condition Category [...] HYPERCHOLEST EROLEMIA, UNSPECIFIED Active 06-17 00:00: 00 HALFWAY (CURRENT) USE OF ASPIRIN Active 08-24 00:00: [...] 2023-06 00:00: 00 07-15 00:00 :00 No [id number] PAIN 1 tablet EVERY 8 HOURS 1 tablet EVERY 8 HOURS (route: oral) Med Classific ation: Analgesic , Anti-infl ammatory or Antipyret ic tramadol 50 mg tablet 2023-06 00:00: 00 08-24 00:00 :00 No [id number] PAIN 1-2 tablet EVERY 8 HOURS 1-2 tablet EVERY 8 HOURS (route: oral) Med Classific ation: Analgesic , Anti-infl ammatory or Antipyret ic Entresto 24 mg-26 mg tablet 2023-06 00:00: 00 Yes [id number] HTN 1 tablet TWICE A DAY 1 tablet TWICE A DAY (route: oral) Med Classific ation: Cardiovas cular Therapy Agents spironolact one 25 mg tablet 2023-06 00:00: 00 Yes [id number] HEART FAILURE 1 tablet EVERY DAY 1 tablet EVERY DAY (route: oral) Med Classific ation: Cardiovas cular Therapy Agents acetaminoph en 500 mg tablet 2023-06 00:00: 00 08-24 00:00 :00 No [id number] PAIN 2 tablet 3 TIMES DAILY 2 tablet 3 TIMES DAILY (route: oral) Med Classific ation: Analgesic , Anti-infl ammatory or Antipyret ic aspirin 81 mg tablet,clifton yed release 09-16 00:00: 00 Yes [id number] DVT PROPHYLAXIS 1 tablet DAILY 1 tablet DAILY (route: oral) Med Classific ation: Hematolog ical Agents atorvastati n 80 mg tablet 2023-06 00:00: 00 Yes [id number] CHOLESTEROL 1 tablet DAILY 1 tablet DAILY (route: oral) Med Classific ation: Cardiovas cular Therapy Agents carvedilol 6.25 mg tablet 2023-06 00:00: 00 Yes [id number] HTN 1 tablet 2 TIMES DAILY 1 tablet 2 TIMES DAILY (route: oral) Med Classific ation: Cardiovas cular Therapy Agents Farxiga 10 mg tablet 2023-06 00:00: 00 08-24 00:00 :00 No [id number] WEIGHT LOSS 1 tablet DAILY 1 tablet DAILY (route: oral) Med Classific ation: Endocrine levothyroxi ne 100 mcg capsule 2023-06 00:00: 00 Yes [id number] THYROID 1 capsule DAILY 1 capsule DAILY (route: oral) Med Classific ation: Endocrine Miralax 17 gram oral powder packet 2023-06 00:00: 00 07-15 00:00 :00 No [id number] CONSTIPATIO N 1 packet DAILY 1 packet DAILY (route: oral) Med Classific ation: Gastroint estinal Therapy Agents naproxen 500 mg tablet 2023-06 00:00: 00 07-15 00:00 :00 No [id number] pain 1 tablet 2 TIMES DAILY 1 tablet 2 TIMES DAILY (route: oral) Med Classific ation: Analgesic , Anti-infl ammatory or Antipyret ic acetaminoph en ER 650 mg tablet,exte nded release 08-24 00:00: 00 Yes [id number] PAIN 1 tablet 2 TIMES DAILY 1 tablet 2 TIMES DAILY (route: oral) Med Classific ation: Analgesic , Anti-infl ammatory or Antipyret ic aspirin 325 mg tablet 08-19 00:00: 00 09-15 23:59 :00 No [id number] PROPHYLACTI C 1 tablet 2 TIMES DAILY 1 tablet 2 TIMES DAILY (route: oral) Med Classific ation: Analgesic , Anti-infl ammatory or Antipyret ic dapaglifloz in propanediol 10 mg tablet 08-24 00:00: 00 Yes [id number] BLOOD SUGAR 1 tablet DAILY 1 tablet DAILY (route: oral) Med Classific ation: Endocrine oxycodone 5 mg tablet 08-24 00:00: 00 Yes [id number] PAIN 1 tablet EVERY 4 HOURS 1 tablet EVERY 4 HOURS (route: oral) Med Classific ation: Analgesic , Anti-infl ammatory or Antipyret ic pantoprazol e 40 mg tablet,clifton yed release 08-24 00:00: 00 Yes [id number] GERD 1 tablet DAILY 1 tablet DAILY [...] TREAT INDICATED] Future Scheduled Test MEDICATION MANAGEMENT; RN/CRAS/CNC SET UP OPERATOR TO REVIEW MEDICATIONS FOR INTERACTIONS, EFFECTIVENESS OF DRUG THERAPY, AND SIGNS/SYMPTOMS OF ADVERSE REACTIONS. MAY INSTRUCT AND REINFORCE MEDICATION TEACHING RELATED TO THE USE OF MEDICATIONS, DOSAGE, FREQUENCY, PURPOSE, SIDE EFFECTS, AND TO REPORT COMPLICATIONS. [code = MEDICATION MANAGEMENT; RN/CRAS/CNC SET UP OPERATOR TO REVIEW MEDICATIONS FOR INTERACTIONS, EFFECTIVENESS OF DRUG THERAPY, AND SIGNS/SYMPTOMS OF ADVERSE REACTIONS. MAY INSTRUCT AND REINFORCE MEDICATION TEACHING RELATED TO THE USE OF MEDICATIONS, DOSAGE, FREQUENCY, PURPOSE, SIDE EFFECTS, AND TO REPORT COMPLICATIONS.] Future Scheduled Test FALL REDUC TION MANAGEMENT; RN TO ASSESS AND OBSERVE, CRAS/CNC SET UP OPERATOR TO OBSERVE FALL RISK FACTORS AND EDUCATE PATIENT/CAREGIVER ON STRATEGIES TO MINIMIZE THE RISK OF FALLING. [code = FALL REDUCTION MANAGEMENT; RN TO ASSESS AND OBSERVE, CRAS/CNC SET UP OPERATOR TO OBSERVE FALL RISK FACTORS AND EDUCATE PATIENT/CAREGIVER ON STRATEGIES TO MINIMIZE THE RISK OF FALLING.] Future Scheduled Test RN TO OBSE RVE, ASSESS, EVALUATE, AND DEVELOP AN INDIVIDUALIZED PLAN OF CARE. AGENCY MAY ACCEPT ORDERS FROM CONSULTING PHYSICIANS DR RUI GUERIN, DR AGUSTIN THOMASON. RN TO OBSERVE AND ASSESS, CRAS/CNC SET UP OPERATOR TO OBSERVE FOR RISK FOR FALLS AND INSTRUCT IN FALL PREVENTION, HOME SAFETY, MEDICATION MANAGEMENT, INFECTION PREVENTION, AND NUTRITION MANAGEMENT. RN/CRAS/CNC SET UP OPERATOR NURSE MAY PERFORM O2 SATURATION LEVEL ON ADMISSION AND PRN FOR SOB FOR RN TO ASSESS/CRAS TO OBSERVE PATIENT, WITH NOTIFICATION TO THE PHYSICIAN IF SATURATION IS 90% IN THE ABSENCE OF MORE SPECIFIC PARAMETERS FROM THE PHYSICIAN. AGENCY MAY PERFORM A RESUMPTION OF CARE VISIT FOLLOWING ANY HOSPITAL ADMISSION. RN/CRAS/CNC SET UP OPERATOR TO MONITOR CO-MORBID CONDITIONS LISTED ON THE PLAN OF CARE AND ANY NEW CONDITIONS THAT PRESENT THEMSELVES DURING THIS EPISODE TO IDENTIFY CHANGES AND INTERVENE TO MINIMIZE COMPLICATIONS. [code = RN TO OBSERVE, ASSESS, EVALUATE, AND DEVELOP AN INDIVIDUALIZED PLAN OF CARE. AGENCY MAY ACCEPT ORDERS FROM CONSULTING PHYSICIANS DR RUI GUERIN, DR AGUSTIN THOMASON. RN TO OBSERVE AND ASSESS, CRAS/CNC SET UP OPERATOR TO OBSERVE FOR RISK FOR FALLS AND INSTRUCT IN FALL PREVENTION, HOME SAFETY, MEDICATION MANAGEMENT, INFECTION PREVENTION, AND NUTRITION MANAGEMENT. RN/CRAS/CNC SET UP OPERATOR NURSE MAY PERFORM O2 SATURATION LEVEL ON ADMISSION AND PRN FOR SOB FOR RN TO ASSESS/CRAS TO OBSERVE PATIENT, WITH NOTIFICATION TO THE PHYSICIAN IF SATURATION IS 90% IN THE ABSENCE OF MORE SPECIFIC PARAMETERS FROM THE PHYSICIAN. AGENCY MAY PERFORM A RESUMPTION OF CARE VISIT FOLLOWING ANY HOSPITAL ADMISSION. RN/CRAS/CNC SET UP OPERATOR TO MONITOR CO-MORBID CONDITIONS LISTED ON THE PLAN OF CARE AND ANY NEW CONDITIONS THAT PRESENT THEMSELVES DURING THIS EPISODE TO IDENTIFY CHANGES AND INTERVENE TO MINIMIZE COMPLICATIONS.] Future Scheduled Test PAIN MANAG EMENT; RN TO ASSESS AND TEACH, CNC SET UP OPERATOR/CRAS TO OBSERVE AND TEACH AND PROVIDE EDUCATION ON PAIN MANAGEMENT TECHNIQUES. [code = PAIN MANAGEMENT; RN TO ASSESS AND TEACH, CNC SET UP OPERATOR/CRAS TO OBSERVE AND TEACH AND PROVIDE EDUCATION ON PAIN MANAGEMENT TECHNIQUES.] Future Scheduled Test RISK FOR H OSPITALIZATION; RN TO ASSESS/TEACH, CNC SET UP OPERATOR/CRAS TO OBSERVE/TEACH PATIENT/CAREGIVER ON RISK FOR HOSPITALIZATION/EMERGENCY ROOM VISITS, TEACH SIGNS AND SYMPTOMS THAT PUT PATIENT AT RISK, WHEN TO NOTIFY NURSE/PHYSICIAN OF COMPLICATIONS/DECLINE, AND WHEN TO CALL 911. [code = RISK FOR HOSPITALIZATION; RN TO ASSESS/TEACH, CNC SET UP OPERATOR/CRAS TO OBSERVE/TEACH PATIENT/CAREGIVER ON RISK FOR HOSPITALIZATION/EMERGENCY ROOM VISITS, TEACH SIGNS AND SYMPTOMS THAT PUT PATIENT AT RISK, WHEN TO NOTIFY NURSE/PHYSICIAN OF COMPLICATIONS/DECLINE, AND WHEN TO CALL 911.] Future Scheduled Test CARDIOVASC ULAR SYSTEM; RN TO ASSESS/TEACH, CRAS/CNC SET UP OPERATOR TO OBSERVE/TEACH RELATED TO ALTERED CARDIOVASCULAR STATUS TO MINIMIZE COMPLICATIONS AND REDUCE HOSPITALIZATION. [code = CARDIOVASCULAR SYSTEM; RN TO ASSESS/TEACH, CRAS/CNC SET UP OPERATOR TO OBSERVE/TEACH RELATED TO ALTERED CARDIOVASCULAR STATUS TO MINIMIZE COMPLICATIONS AND REDUCE HOSPITALIZATION.] Future Scheduled Test AGENCY MAY PERFORM A RESUMPTION OF CARE VISIT FOLLOWING ANY HOSPITAL ADMISSION. PT TO EVALUATE, OBSERVE / ASSESS, AND MONITOR, PAINT SPECIALIST TO OBSERVE AND MONITOR, PROVIDE SKILLED THERAPEUTIC INTERVENTION, ACTIVITY, EDUCATION, AND TRAINING TO ADDRESS; PT/PAINT SPECIALIST TO PROVIDE GAIT TRAINING FOR IMPROVED MOBILITY AND /OR TO NORMALIZE GAIT PATTERN NEUROMUSCULAR RE-EDUCATION / BALANCE / POSTURAL CONTROL (PT) THERAPEUTIC EXERCISES AND ESTABLISHING A HOME EXERCISE PROGRAM (PT/PAINT SPECIALIST) PT/PAINT SPECIALIST TO PROVIDE STAIR TRAINING BED TRANSFERS (PT/PAINT SPECIALIST) CHAIR TRANSFERS (PT/PAINT SPECIALIST) PT TO ASSESS / PAINT SPECIALIST TO MONITOR FOR AND REPORT EARLY SIGNS OF ANTICOAGULANT TOXICITY TO THE PHYSICIAN AND/OR THE RN CLINICAL TONE CABINET ASSEMBLER FOR PHYSICIAN NOTIFICATION AND TO PROVIDE PATIENT/CAREGIVER EDUCATION ON ANTICOAGULANT THERAPY PT / PAINT SPECIALIST MAY EDUCATE ON PAIN MANAGEMENT CLINICALLY INDICATED, INCLUDING NON-PHARMACOLOGICAL PAIN REDUCTION TECHNIQUES AND USE OF CRYOTHERAPY UP TO 20 MIN AT A TIME FOR PAIN MANAGEMENT 4 TIMES PER DAY TO L HIP. PT / PAINT SPECIALIST TO EDUCATE ON HIP REPLACEMENT SELF-MANAGEMENT PT TO ASSESS / PAINT SPECIALIST TO MONITOR FOR HEART FAILURE EXACERBATION AND RECORD PATIENT REPORTED WEIGHT, AND NOTIFY THE PHYSICIAN AND/OR THE RN CLINICAL TONE CABINET ASSEMBLER FOR PHYSICIAN NOTIFICATION OF HF EXACERBATION (2LB WEIGHT GAIN IN 1 DAY, 5LBS IN A WEEK OR 5 LBS OVER BASELINE; INCREASED SOB, EDEMA, NEEDING MORE PILLOWS AT NIGHT, CRACKLES IN BASIS OF THE LUNGS OR PMI SHIFT) [code = AGENCY MAY PERFORM A RESUMPTION OF CARE VISIT FOLLOWING ANY HOSPITAL ADMISSION. PT TO EVALUATE, OBSERVE / ASSESS, AND MONITOR, PAINT SPECIALIST TO OBSERVE AND MONITOR, PROVIDE SKILLED THERAPEUTIC INTERVENTION, ACTIVITY, EDUCATION, AND TRAINING TO ADDRESS; PT/PAINT SPECIALIST TO PROVIDE GAIT TRAINING FOR IMPROVED MOBILITY AND /OR TO NORMALIZE GAIT PATTERN NEUROMUSCULAR RE-EDUCATION / BALANCE / POSTURAL CONTROL (PT) THERAPEUTIC EXERCISES AND ESTABLISHING A HOME EXERCISE PROGRAM (PT/PAINT SPECIALIST) PT/PAINT SPECIALIST TO PROVIDE STAIR TRAINING BED TRANSFERS (PT/PAINT SPECIALIST) CHAIR TRANSFERS (PT/PAINT SPECIALIST) PT TO ASSESS / PAINT SPECIALIST TO MONITOR FOR AND REPORT EARLY SIGNS OF ANTICOAGULANT TOXICITY TO THE PHYSICIAN AND/OR THE RN CLINICAL TONE CABINET ASSEMBLER FOR PHYSICIAN NOTIFICATION AND TO PROVIDE PATIENT/CAREGIVER EDUCATION ON ANTICOAGULANT THERAPY PT / PAINT SPECIALIST MAY EDUCATE ON PAIN MANAGEMENT CLINICALLY INDICATED, INCLUDING NON-PHARMACOLOGICAL PAIN REDUCTION TECHNIQUES AND USE OF CRYOTHERAPY UP TO 20 MIN AT A TIME FOR PAIN MANAGEMENT 4 TIMES PER DAY TO L HIP. PT / PAINT SPECIALIST TO EDUCATE ON HIP REPLACEMENT SELF-MANAGEMENT PT TO ASSESS / PAINT SPECIALIST TO MONITOR FOR HEART FAILURE EXACERBATION AND RECORD PATIENT REPORTED WEIGHT, AND NOTIFY THE PHYSICIAN AND/OR THE RN CLINICAL TONE CABINET ASSEMBLER FOR PHYSICIAN NOTIFICATION OF HF EXACERBATION (2LB [...] End Date/Time Encounter Type Admission Type [facility] Care Department Encounter ID Discharge Date Discharge Status Discharge Condition Discharge Reason Percent Goals Met 2024-08-24 00:00:00 2024-10-20 00:00:00 Outpatient JAKE MURRAY [facility] [id number] 2024-10-20 00:00:00 DISCHARGE TO HOME OR SELF CARE INDEPENDEN T WITH USE OF ASSISTIVE DEVICE HH OR PAL- GOALS MET 96.15
--- OUTSIDE RECORDS SUMMARY | 2024-10-22 15:32 | XMS_ITS | Clinical Summary ---
Author Organization [address] [place] [address] Address [address] [place] [address] Phone Care Team Providers Care Cook Chill Technician Name Role Phone Mechelle Ortega MD Primary Care Provider [phone] Allergies Active Allergy Reactions Criticality Noted Date [...] BY MOUTH DAILY NEEDED AND DIRECTED BY GENERAL CAR SUPERVISOR YARD 20 tablet 09/24/19 25 Active carvediloL (COREG) [...] BY MOUTH DAILY NEEDED AND DIRECTED BY GENERAL CAR SUPERVISOR YARD 90 tablet 07/21/19 25 025 Discontin ued(Reord er) Active Problems Problem Noted Date Diagnosed Date Acute ST elevation myocardia l infarction (STEMI) due to occlusion of distal portion of left anterior descending (LAD) coronary artery (CMS/[facility] V24, CMS/[facility] V28) 07/26/2022 Overview (05/12/2024): See full history [...] Overview (05/12/2024): - Status post admission to [facility] in May [address] [place] - Taken urgently for left heart cath [...] Description 10/13/2024 12:05 PM EDT Ancillary Procedure [facility] Cardiology [facility] [address] [place] [address] 10/13/2024 Telephone [facility] - [address] [place] [address] Deshaun Esqueda MD returning call (Returning call ) 09/23/2024 3:00 PM EDT Office Visit [facility] - [address] [place] [address] Chelita Todd MD 09/18/2024 11:00 PM EDT Ancillary Procedure [facility] - [address] [place] [address] 09/18/2024 6:30 PM EDT Ancillary Procedure [facility] - [address] [place] [address] 09/16/2024 2:10 AM EDT Ancillary Procedure [facility] - [address] [place] [address] 08/20/2024 Telephone [facility] - [address] [place] [address] Chelita Todd MD Hypotension 08/19/2024 3:20 PM EST Ancillary Procedure [facility] - [address] [place] [address] from Last 3 Months Surgical History Surgery [...] Description 04/16/2025 1:10 PM EDT Office Visit [facility] Cardiology [facility] - [facility] [place] [facility] [address] [facility] [address] [place] [phone] Antoni Dodson NP [address] [place] [address] 07/12/2025 1:00 PM EST Ancillary Procedure [facility] - [facility] [place] [facility] [address] [facility] [address] [place] [id number] Health Maintenance Due Date Last Done Comments [...] this topic Medical Devices Implanted Type Area Mail List Processor Device Identifier Shelf Expiration Date Model / Serial / Lot Medt-Card Desire Quad Records Management Analyst-P [id number] Implanted:05/17 by Deshaun Esqueda MD (Quantity not on file) Cardiac STARCH DUMPER-P Left: Chest [employer] - CARDIAC RHYTH-CRDM DESIRE QUAD STARCH DUMPER-P [id number] / [id number] S / Procedures Procedure Name Priority Date/Time [...] period is included. Date Time Interrogation Session [id number] CV DEVICE CHECK Type Interrogation Session Remote CV DEVICE CHECK Implantable Pulse Generator Mail List Processor MDT CV DEVICE CHECK Implantable Pulse Generator Type STARCH DUMPER-P CV DEVICE CHECK Implantable Pulse Generator Model Desire Quad STARCH DUMPER-P [id number] CV DEVICE CHECK Implantable Pulse Generator Serial Number [id number] CV DEVICE CHECK Implantable Pulse Generator Implant Date 20220531 CV DEVICE CHECK Battery Remaining Longevity 125.0 CV DEVICE CHECK Battery Voltage 3.010 CV D EVICE CHECK Battery KNAPSACK SPRAYER Trigger 2.595 CV DEVICE CHECK Battery Status Middle of Service CV DEVICE CHECK Yakov Statistic RA Percent Paced 78.27 CV DEVICE CHECK Yakov Statistic RV Percent Paced 0.30 CV DEVICE CHECK STARCH DUMPER Statistic LV Percent Paced 97.35 CV DEVICE CHECK STARCH DUMPER Statistic STARCH DUMPER Percent Paced 0.26 CV DEVICE CHECK Atrial Tachy Statistic AT/AF [place] Percent 0.00 CV DEVICE CHECK Lead Channel [...] CV DEVICE CHECK Ventricular chambers paced during STARCH DUMPER pacing. LVOnly CV DEVICE CHECK Yakov Setting Lower Rate Limit 60 CV DEVICE CHECK Yakov Setting AT Mode Switch Rate 171 CV DEVICE CHECK Yakov Setting Maximum Tracking Rate 130 CV DEVICE CHECK Yakov Setting Maximum Sensor Rate 120 CV DEVICE CHECK Yakov Setting PAV Delay 160 CV DEVICE CHECK Yakov Setting DENISA Delay 90 CV DEVICE CHECK STARCH DUMPER LV-RV Delay 40 CV D EVICE CHECK [...] Elevated Thais BARRIENTOS CV IMPLANTABLE CARDIAC DEVICE NV OCEDURES Final Result * Basic metabolic panel (07/08/2024 12:00 PM EST) Sodium 140 133 - 145 mmol/L LAB CHEMISTRY METHOD 07/08/2024 4:32 PM [facility] Potassium 4.7 3.5 - 5.5 mmol/L LAB CHEMISTRY METHOD 07/08/2024 4:32 PM [facility] Chloride 110 96 - 110 mmol/L LAB CHEMISTRY METHOD 07/08/2024 4:32 PM [facility] CO2 27 21 - 32 mmol/L LAB CHEMISTRY METHOD 07/08/2024 4:32 PM [facility] Anion Gap 3 3 - 11 LAB CHEMISTRY METHOD 07/08/2024 4:32 PM [facility] Glucose 81 70 - 100 mg/dL LAB CHEMISTRY METHOD 07/08/2024 4:32 PM [facility] BUN 16 5 - 25 mg/dL LAB CHEMISTRY METHOD 07/08/2024 4:32 PM [facility] Creatinine 0.61 0.50 - 1.10 mg/dL LAB CHEMISTRY METHOD 07/08/2024 4:32 PM EST [facility] eGFR 110 >=60 mL/min/1. 73m2 LAB CHEMISTRY METHOD 07/08/2024 4:32 PM EST [facility] Comment:Calculation based on the??Chronic Kidney Disease Epidemiology Collaboration (CKD-EPI) equation refit??without adjustment for race. BUN/Creatinine Ratio 26.2 LAB CHEMISTRY METHOD 07/08/2024 4:32 PM [facility] Calcium 9.3 8.5 - 10.5 mg/dL LAB CHEMISTRY METHOD 07/08/2024 4:32 PM [facility] Blood Venous blood specimen / Unknown Venipuncture / Unknown 07/08/2024 12:00 PM EST 07/08/2024 12:33 PM EST Julia Flynn POT PUNCHER LAB BLOOD ORDERABLES F inal Result [facility] [address] [place] [address], from Last 3 Months or Most Recently Relevant to Health Maintenance Insurance MEDICARE MEDICAID - [place] Care Teams Cook Chill Technician Relationship Specialty Start Date End Date Mechelle Ortega MD [address] [facility] [address] [address] PCP - General Internal Medicine 04/30/24
--- OUTSIDE RECORDS SUMMARY | 2024-10-22 15:32 | XMS_ITS | Data Portability ---
Author Organization [place] - [facility] Address [address] [place] [address] Care Team Providers Care Wire Inspector Name Role Phone SAMI THOMASON Primary Care Provider [phone] Assessment Encounter Date Assessment Date Assessment LastModified by Organization Details LastModified Time 02/06/2024 02/06/2024 48-year-old female with history of chronic OE, recurrent cerumen impactions, and hearing loss using amplification presents for routine ear cleaning. Cerumen impaction removed bilaterally. Infection has resolved. Resume alcohol/vinegar mixture in ears a few times per week. She will follow-up in 6 weeks for routine debridement, or sooner with any worsening symptoms. [email or web address] Not available 02/06/2024 15:55:49 03/12/2024 03/12/2024 49-year-old [...] debridement, or sooner with any worsening symptoms. [email or web address] Not available 03/12/2024 11:57:01 04/23/2024 04/23/2024 49-year-old female with history of chronic OE, recurrent cerumen impactions, and hearing loss using amplification presents for routine ear cleaning. The infection has resolved. Cerumen impaction removed bilaterally. Otologic exam is stable. She will follow-up in 6 weeks for routine debridement, or sooner with any worsening symptoms. Not available 04/23/2024 11:06:14 07/22/2024 07/22/2024 49-year-old female with history of chronic OE, recurrent cerumen impactions, and hearing loss using amplification presents for routine ear cleaning. Cerumen impaction removed bilaterally. Otologic exam is stable. She will follow-up in 6 weeks for routine debridement, or sooner with any worsening symptoms. [email or web address] Not available 07/22/2024 11:37:42 10/15/2024 10/15/2024 49-year-old female with history of chronic OE, recurrent cerumen impactions, and hearing loss using amplification presents for routine ear cleaning. Cerumen impaction removed bilaterally. Otologic exam is stable. She will follow-up in 6 weeks for routine debridement, or sooner with any worsening symptoms. [email or web address] Not available 10/15/2024 11:18:41 Plan of Treatment Reminders Order Date Submit Date Provider Last Modified By Organization Details Last Modified Time Details Appointments Establish ed 15 2024 11:30A M BENRICE SPEARS PA-C Not available Not available Not available Establish ed 15 2024 11:30A M BERNICE SPEARS PA-C Not available Not available Not available Establish ed 15 2024 11:15A M BERNICE SPEARS PA-C Not available Not available Not available Lab None recorded. Referral None recorded. Procedures None recorded. Surgeries None recorded. Imaging None recorded. Medication Orders TobraDex 0.3 %-0.1 % eye drops,[facility] [address] [place] [address]/Pharmacy #[id number], [address] [place] [address], [place], [address], 03/12/2024 11:55:33 Patient TargetsNo targets recorded. Patient InstructionsNo instructions recorded. Reason for Referral None Reported. Results Created Date Observation Date Name Description Value Unit Range Abnormal Flag Note LastModifiedBy Organization Detail LastModifiedTime 02/05/20 24 12/05/2018 imagi ng/di agnos tic resul t No observ ation record ed. [email or web address] Not Available 00:58:53 02/05/20 24 12/05/2018 imagi ng/di agnos tic resul t No observ ation record ed. [email or web address] Not Available 00:59:02 02/05/20 24 12/05/2018 audio gram No observ ation record ed. [email or web address] Not Available 01:02:47 Result Notes None recorded. Problems Name Problem SNOMED Code Status Onset Date Resolution Date Notes Provider Name and Address Organization Details Recorded Time Otorrhea of right ear 93466447432 66236 Active 2022 Otorrhea , right ear; Note: Date Diagnose d: 3 11:49 AM (H92.13) Not Available [facility] 4 02:53:46 Mixed conducti ve and sensorin eural hearing loss, bilatera l 004145112 Active 2014 Mixed hearing loss, bilatera l; Note: Date Diagnose d: 5 12:14 PM (389.22) Mixed conducti ve and sensorin eural hearing loss, bilatera l; Note: Date Diagnose d: 5 12:14 PM (H90.6) [mapped from ICD9 code: 389.22] Not Available [facility] 4 02:53:46 Sensorin eural hearing loss in right ear 34260277669 100 Active 2018 Sensorin eural hearing loss, unilater al, right ear, with restrict ed hearing on the contrala teral side; Note: Date Diagnose d: 9 4:51 PM (H90.A21 ) Not Available [facility] 4 02:53:45 Bilatera l diffuse otitis externa 55497959871 70450 Completed 201801/17/2024 Diffuse otitis externa, bilatera l; Note: Date Diagnose d: 11/20/2018 2:38 PM (H60.313 ) BERNICE SPEARS PA-C [address] [place] [address], [place], [address] , [facility] - [facility] 4 15:19:29 Candidal otitis externa 45048983 Active 2014 Candidia sis: Candidal otitis externa; Note: Date Diagnose d: 5 12:14 PM (112.82) [mapped from ICD9 code: 389.22] Candid al otitis externa; Note: Date Diagnose d: 5 12:15 PM (B37.84) [mapped from ICD9 code: 112.82] Not Available [facility] 4 02:53:44 Impacted cerumen of bilatera l ears 98212213105 44720 Active 2014 Impacted cerumen, bilatera l; Note: Date Diagnose d: 5 2:31 PM (H61.23) [mapped from ICD9 code: 380.4] Not Available [facility] 4 02:53:46 Otorrhea of bilatera l ears 82606944275 04626 Completed 202101/17/2024 Otorrhea , bilatera l; Note: Date Diagnose d: 03/27/20 22 3:43 PM (H92.13) Not Available [facility] 4 02:53:48 Impacted cerumen 48215048 Active 2014 Impacted cerumen; CMS Risk: low risk CMS Treatmen t: new problem (to examiner ): no addition al workup planned Not Available [facility] 4 02:53:45 Impacted cerumen in left ear 24652169274 71729 Active 2019 Impacted cerumen, left ear; Note: Date Diagnose d: 11/17/2019 1:33 PM (H61.22) Not Available [facility] 4 02:53:44 Chronic mycotic otitis externa 982443303 Active 2014 Chronic mycotic otitis externa; Note: Date Diagnose d: 5 2:29 PM (380.15) Not Available [facility] 4 02:53:43 Diffuse otitis externa 79982683 Active 2019 Diffuse otitis externa, right ear; Note: Date Diagnose d: 11/17/2019 1:33 PM (H60.311 ) ; Start Date : 11/17/19 20 Diffu se otitis externa, left ear; Note: Date Diagnose d: 12/22/2019 1:58 PM (H60.312 ) Not Available [facility] 4 02:53:47 Impacted cerumen in right ear 82150930773 43029 Active 2022 Impacted cerumen, right ear; Note: Date Diagnose d: 3 1:57 PM (H61.21) Not Available [facility] 4 02:53:45 Mixed conducti ve and sensorin eural hearing loss of left ear 34464144916 107 Active 2018 Mixed conducti ve and sensorin eural hearing loss, unilater al, left ear with restrict ed hearing on the contrala teral side; Note: Date Diagnose d: 9 4:51 PM (H90.A32 ) Not Available [facility] 4 02:53:47 Bilatera l diffuse otitis externa 96045490318 75080 Active 2023 Diffuse otitis externa, bilatera l; Note: Date Diagnose d: 11/20/2018 2:38 PM (H60.313 ) BERNICE SPEARS PA-C [address] [facility],[address], [address] , [place] - [facility] 4 15:19:29 Problem Notes None recorded. Procedures Surgical History Date Name Laterality Status Provider Name and Address Organization Details Recorded Time 5 Cerumen removal without microscope bilat completed BERNICE SPEARS PA-C [address] [facility],[address], [address], [place] - [facility] 10/15/2024 11:18:37 5 Cerumen removal without microscope bilat completed BERNICE SPEARS PA-C 100 [facility],[address], [address], [place] - [facility] 07/22/2024 11:37:24 4 Cerumen removal without microscope bilat completed BERNICE SPEARS PA-C [address] [facility],[address], [address], [place] - [facility] 04/23/2024 11:04:35 4 Cerumen removal without microscope bilat completed BERNICE SPEARS PA-C [facility] [place], [place], [address], [place] - [facility] 03/12/2024 11:07:32 4 Cerumen removal without microscope bilat completed BERNICE SPEARS PA-C [address], [place], [address], [place] [facility] 02/06/2024 15:55:18 4 Cerumen removal without microscope bilat completed BERNICE SPEARS PA-C [address] [facility],[address], [place], [address], [place] [facility] 01/02/2024 12:54:36 4 Cerumen removal without microscope bilat completed BERNICE SPEARS PA-C [address] [facility] [address], [place], [address], [facility] - [facility] 11/21/2023 11:16:14 Imaging Results Imaging Date Name Status LastModified by Organiz ation Details LastModified Time 12/05/2018 imaging/diagno stic result completed Information not available 02/05/2024 00:58:53 12/05/2018 imaging/diagno stic result completed Information not available 02/05/2024 00:59:02 12/05/2018 [email or web address] Information not available 02/05/2024 01:02:47 Procedure Notes None recorded. Medical Equipment None Reported. Allergies Allergen ID Allergen Name Allergen Category Reaction Reaction Severity Criticality Documentation Date Start Date Code Code System Note Provider Name and Address Organization Details Recorded Time 140560 penicilli n V potassium medicatio n other [...] Not Available Not Available No t Available erythromy bogdan 500 mg tablet TAKE 2 TABLETS BY MOUTH NEEDED DIRECTED 1 HOUR PRIOR TO DENTAL APPOINTM [facility] active Not Available Not Available No t Available lisinopri l 20 mg tablet 09/12 completed Medicati on ID: [id number] Du ration Value: 30 Brand Name: lisinopr il Send Method: E-Prescr ibed Sub s Allowed: subs OK Speci al Instruct ion: TAKE 1 TABLET BY MOUTH EVERY DAY Medi cationGe nericNam e: lisinopr il Not Available Not Available Not Available Ciloxan 0.3 % eye drops 03/08 completed Medicati on ID: [id number] Pr escribed By Name: NUBIA Sweet nd Name: Ciloxan Send Method: E-Prescr ibed Sub s Allowed: subs OK Speci al Instruct ion: Instill 4 drops twice a day into affected ear for 7 days Med icationG enericNa me: Ciloxan Not Available Not Available Not Available tramadol 50 mg tablet TAKE 1 TABLET BY MOUTH EVERY 4 TO 6 HOURS AFTER MEALS FOR 7 DAYS active Not Available Not Available No [...] mcg tablet 2020 active Medicati on ID: [id number] B rand Name: levothyr oxine Se nd Method: E-Prescr ibed Sub s Allowed: subs OK Medic ationGen ericName : levothyr oxine Not Available Not Available Not Available sulfaceta mide sodium 10 % eye drops 2020 active Medicati on ID: [id number] D uration Value: 14 Brand Name: sulfacet amide sodium S end Method: E-Prescr ibed Sub s Allowed: subs OK Speci al Instruct ion: 4 drops to affected ear BID x 14 days Med icationG enericNa me: sulfacet amide sodium Not Available Not Available Not Available levothyro xine 50 mcg tablet 11/19 completed Medicati on ID: [id number] Du ration Value: 30 Reason: () Brand Name: levothyr oxine Se nd Method: E-Prescr ibed Sub s Allowed: subs OK Speci al Instruct ion: TAKE 1 TABLET BY MOUTH EVERY DAY Medi cationGe nericNam e: levothyr oxine Not Available Not Available Not Available pantopraz ole 40 mg tablet,de layed release TAKE 1 TABLET BY MOUTH EVERY DAY. active Not Available Not Available No t Available simvastat in 20 mg tablet 09/12 completed Medicati on ID: [id number] D uration Value: 30 Brand Name: simvasta [...] a day 2022 active Medicati on ID: [id number] D uration Value: 14 Brand Name: clotrima [...] a day 2023 active Medicati on ID: [id number] D uration Value: 14 Brand Name: Ciprodex [...] and Address Organization Details Last Updated DateTime 10/15/2024 144.78 cm 27 kg/m2 19287.05 g Kelley León [facility] 10/15/2024 11:13:09 Date Recorded Body height Body mass index (BMI) Body weight Provider Name and Address Organization Details Last Updated DateTime 02/06/2024 144.78 cm 27 kg/m2 89648.05 g Emily Mendoza [place] - [facility] 02/06/2024 15:07:39 Date Recorded Body height Body mass index (BMI) Body weight Provider Name and Address Organization Details Last Updated DateTime 03/12/2024 144.78 cm 27 kg/m2 98761.05 g Terrance Les [facility] 03/12/2024 11:28:56 Date Recorded Body height Body mass index (BMI) Body weight Provider Name and Address Organization Details Last Updated DateTime 07/22/2024 144.78 cm 27 kg/m2 73780.05 g Emily Padillaos [facility] 07/22/2024 11:44:27 Social History None recorded. Functional Status None recorded. Mental Status None recorded. Family History Nothing Reported. Medical History No medical history recorded. Gynecological HistoryNo gynecological history recorded. Obstetrics History GPAL:G 0 P 0 0 0 0 Past Encounters Encounter ID Performer Location Encounter Start Date Encounter Closed Date Diagnosis/Indication Diagnosis SNOMED-CT Code Diagnosis ICD10 Code Diagnosis Note [id number] BERNICE SPEARS PA-C [facility] [address] [address] 11/21/2023 11:07:48 11/21/2023 11:40:06 Impacted cerumen of bilateral ears 8352772231 863657 H61.23 [id number] BERNICE SPEARS PA-C [facility] [address] [address] 01/02/2024 11:03:40 01/02/2024 11:36:55 Bilateral diffuse otitis externa 1433447386 972430 H60.313 Impacted c erumen of bilateral ears 3071424922 948252 H61.23 [id number] BERNICE SPEARS PA-C [facility] [address] [address] 02/06/2024 14:53:34 02/06/2024 15:32:25 Bilateral diffuse otitis externa 4858511629 061153 H60.313 Impacted c erumen of bilateral ears 6302204250 785982 H61.23 [id number] BERNICE SPEARS PA-C [facility] [address] [address] 03/12/2024 11:06:52 03/12/2024 11:56:11 Impacted cerumen of bilateral ears 1972626010 249079 H61.23 Bilateral diffuse otitis externa 7341821235 851958 H60.313 [id number] BERNICE SPEARS PA-C [facility] [address] [address] 04/23/2024 10:17:05 04/23/2024 10:54:32 Impacted cerumen of bilateral ears 7675378294 662947 H61.23 [id number] BERNICE SPEARS PA-C [facility] [address] [address] 07/22/2024 11:25:27 07/22/2024 11:52:20 Impacted cerumen of bilateral ears 6694212495 318070 H61.23 [id number] BERNICE SPEARS PA-C [facility] [address] [address] 10/15/2024 11:08:13 10/15/2024 11:33:37 Impacted cerumen of bilateral ears 0030538282 124128 H61.23 Health Concerns Section Related Observation LastModified by Organization Detai ls LastModified Time None Recorded Concern Status LastModified by Organization Details LastModified Time None Recorded Advance Directives Directive None Recorded Payers Insurance Date Sequence Insurance Name Policy Number Policy Martinez Covered Member ID Martinez Member ID Guarantor Name 10/15/2024 2 MEDICAID-[place]: [facility] Thais Kincaid [id number] Thais Kincaid 10/15/2024 1 MEDICARE B-[place]: [employer] Thais Kincaid [id number] Thais Kincaid Notes Date Note Type Note Provider Name and Address Organization Details Recorded Time 02/06/2024 text/html 48-year-old fema le with history of chronic OE, recurrent cerumen impactions, and hearing loss using amplification presents for routine ear cleaning. Used Tobradex. Denies otalgia and otorrhea. Accompanied by mom. JAKE GRANADOS MD [address] [place] [address], [address], [facility] - [facility] 02/06/2024 16:53:26 03/12/2024 text/html 49-year-old fema le with history of chronic OE, recurrent cerumen impactions, and hearing loss using amplification presents for routine ear cleaning. Denies otalgia and otorrhea. Accompanied by mom. MANINDER JAY MD 100 [facility],[address], [address], [facility] 03/12/2024 12:06:04 04/23/2024 text/html 49-year-old fema le with history of chronic OE, recurrent cerumen impactions, and hearing loss using amplification presents for routine ear cleaning. Used Tobradex as recommended at previous visit. Denies otalgia and otorrhea. Accompanied by mom. MIRI CONTRERAS MD 100 [facility],[address], [address], [facility] 04/24/2024 13:30:32 07/22/2024 text/html 49-year-old fema le with history of chronic OE, recurrent cerumen impactions, and hearing loss using amplification presents for routine ear cleaning. Denies otalgia and otorrhea. Accompanied by mom. JAKE GRANADOS MD 100 [facility],[address], [address], [facility] 07/22/2024 17:28:41 10/15/2024 text/html 49-year-old fema le with history of chronic OE, recurrent cerumen impactions, and hearing loss using amplification presents for routine ear cleaning. Denies otalgia and otorrhea. Accompanied by mom. JAKE GRANADOS MD 100 [facility],[address], [address], [facility] 10/15/2024 17:30:35 OBGyn Episode No OBEpisode recorded.
--- OUTSIDE RECORDS SUMMARY | 2024-10-22 15:32 | XMS_ITS | Clinical Summary ---
Author Organization [facility] Address [address] [place], [place] [address] Care Team Providers Care Dispatch Supervisor Name Role Phone Michael Manjarrez MD Primary Care Provider [phone] Allergies Active Allergy Reactions Criticality Noted Date [...] age to complete this topic Care Teams Dispatch Supervisor Relationship Specialty Start Date End Date Michael Manjarrez MD [address] [place] [address] PCP - General Internal Medicine 02/28/18
== END 2024-10-22 14:55 | disposition home or self-care (01) ==
LOC: HO.HAP 14:54
PROVIDERS: Visit Provider Internal Medicine
DX: Z46.1 Encounter for fitting and adjustment of hearing aid (principal); H90.3 Sensorineural hearing loss, bilateral
CPT/HCPCS: V5264

== ENCOUNTER 2025-01-26 14:27 | Outpatient (REF) | payer MEDICARE, MEDICAID, SELFPAY ==
--- OUTSIDE RECORDS SUMMARY | 2025-01-26 15:22 | XMS_ITS | Clinical Summary ---
Author Organization [address] [place] [address] Address [address] [place] [address] Phone Care Team Providers Care Milling Supervisor Name Role Phone Mechelle Ortega MD Primary Care Provider [phone] Allergies Active Allergy Reactions Criticality Noted Date Comments Penicillins Hives,Other 07/20/2013 Medications sacubitriL-vals carolyn (Entresto) 24-26 mg per tablet Take 1 tablet by mouth 2 (two) times a day. 4 Active levothyroxine (SYNTHROID, LEVOTHROID) 100 mcg [...] EVERY DAY 90 tablet 3 5 Active aspirin 81 mg chewable tablet Chew 1 tablet (81 mg total) 1 (one) time each day. Active tramadol HCl (TRAMADOL ORAL) Take 5 mg/hr by mouth 1 (one) time. Max Daily Amount: 5 mg/hr Active carvediloL (COREG) 6.25 mg tablet Take 1 tablet (6.25 mg total) by mouth 2 (two) times a day with meals. 180 each 3 5 09/24/19 26 Active furosemide (LASIX) 20 mg tablet TAKE 1 TABLET BY MOUTH DAILY NEEDED AND DIRECTED BY ASSEMBLER ERECTOR 90 tablet 1 5 Active Active Problems Problem Noted Date Diagnosed Date Acute ST elevation myocardia l infarction (STEMI) due to occlusion of distal portion of left anterior descending (LAD) coronary artery ([facility] V24, CMS/[facility] V28) 07/26/2022 Overview (05/12/2024): See full history [...] pain. HTN (hypertension) 07/25/2022 Ischemic dilated cardiomyopathy (CMS/[facility] V24, CM S/HCC V28) 07/25/2022 Overview (05/12/2024): - Status post admission to [facility] in May [address] elevation MT - Taken urgently for left heart cath [...] Encounters Date Type Department Care Team Description 01/16/2025 1:45 AM EDT Ancillary Procedure [facility] [address] [place] [address] 12/21/2024 8:15 AM EDT Ancillary Procedure [facility] [address] [place] [address] 11/17/2024 2:25 PM EDT Ancillary Procedure [facility] [address] [place] [address] from Last 3 Months Surgical History Surgery [...] Description 04/16/2025 1:10 PM EDT Office Visit [facility] [address] [facility] [address] [place] [address] Antoni Dodson NP [address] [place] [address] 07/12/2025 1:00 PM EST Ancillary Procedure [facility] [address] [facility] [address] [place] [address] Health Maintenance Due Date Last Done Comments Breast Cancer Screening 1976 DTaP,Tdap,and Td Vaccines (1 - Tdap) 01/28/1995 Hepatitis B Vaccines (1 of 3 - 19+ 3-dose series) 01/28/1995 Cervical Cancer Screening: Pap Smear 01/28/1997 Cholesterol Screening (Lipid Panel) 05/20/2022 Colorectal Cancer Screening: Colonoscopy 05/20/2022 HIV Screening 05/20/2022 Hepatitis C Screening 05/20/2022 Social Influencers of Health Screening 05/20/2022 Medicare Annual Wellness Visit 01/23/2024 01/22/2023 COVID-19 Vaccine ( season) 2024 08/30/2020, 08/09/2020 Depression Screening 06/17/2024 Influenza Vaccine (#1) 2025 4, 04/21/2020, 05/12/2019, Additional history exists Hypertension/CHF/CAD Annual BMP Blood Test 07/08/2025 07/08/2024, 03/24/2024 HIB Vaccines Aged Out No longer eligi [...] 5 Years) and At-Risk Patients (6 to 49 Years) Aged Out No longer eligible based on patient's age to complete this topic RSV Immunization Patients Under 20 months Aged Out No longer eligible based on patient's age to complete this topic Varicella Vaccines Aged Out No longer eligible based on patient's age to complete this topic Medical Devices Implanted Type Area Crop Insurance Claims Adjuster Device Identifier Shelf Expiration Date Model / Serial / Lot Medt-Card Desire Quad [employer] Tire Technician-P [id number] Implanted:05/17 by Deshaun Esqueda MD (Quantity not on file) Cardiac CARGO HANDLER-P Left: Chest [employer] - CARDIAC RHYTH-CRDM DESIRE QUAD CARGO HANDLER-P [id number] / [id number] / Procedures Procedure Name Priority Date/Time Associated Diagnosis Comments CARDIAC DEVICE CHECK- REMOTE- MURJ Routine 01/16/2025 1:43 AM EDT CARDIAC DEVICE CHECK- REMOTE- MURJ Routine 12/21/2024 8:12 AM EDT CARDIAC DEVICE CHECK- REMOTE- MURJ Routine 11/17/2024 2:21 PM EDT BASIC METABOLIC PANEL Routine 07/08/2024 12:00 PM EST Other congestive heart failure (CMS/HCC V24, CMS/HCC V28) from Last 3 Months or Most Recently Relevant to Health Maintenance Results * Cardiac device check - Remote- MURJ (01/16/2025 1:43 AM EDT) Only the most recent of3 resultswithin the time period is included. Date Time Interrogation Session [id number] CV DEVICE CHECK Type Interrogation Session Remote CV DEVICE CHECK Implantable Pulse Generator Crop Insurance Claims Adjuster MDT CV DEVICE CHECK Implantable Pulse Generator Type CARGO HANDLER-P CV DEVICE CHECK Implantable Pulse Generator Model Desire Quad CARGO HANDLER-P [id number] CV DEVICE CHECK Implantable Pulse Generator Serial Number [id number] CV DEVICE CHECK Implantable Pulse Generator Implant Date 20220531 CV DEVICE CHECK Battery Remaining Longevity 122.0 CV DEVICE CHECK Battery Voltage 3.000 CV D EVICE CHECK Battery BEVEL POLISHER Trigger 2.595 CV DEVICE CHECK Battery Status Middle of Service CV DEVICE CHECK Yakov Statistic RA Percent Paced 90.70 CV DEVICE CHECK Atrial Tachy Statistic AT/AF [place] Percent 0.00 CV DEVICE CHECK Lead Channel Sensing Intrinsic Amplitude 4.750 CV DEVICE CHECK Lead Channel Setting Sensing Sensitivity 0.60 CV DEVICE CHECK Lead Channel Impedance Value 418 CV DEVICE CHECK Lead Channel Pacing Threshold Amplitude 0.875 CV DEVICE CHECK Lead Channel Pacing Threshold Pulse Width 0.4 CV DEVICE CHECK Lead Channel RA Pacing Threshold Date 2025-01-13 CV DEVICE CHECK Lead Channel Setting Pacing Amplitude 1.750 CV DEVICE CHECK Lead Channel Setting Pacing Pulse Width 0.4 CV DEVICE CHECK Lead Channel Sensing Intrinsic Amplitude 20.875 CV DEVICE CHECK Lead Channel Setting Sensing Sensitivity 0.90 CV DEVICE CHECK Lead Channel Impedance Value 437 CV DEVICE CHECK Lead Channel Pacing Threshold Amplitude 0.875 CV DEVICE CHECK Lead Channel Pacing Threshold Pulse Width 0.4 CV DEVICE CHECK Lead Channel RV Pacing Threshold Date 2025-01-13 CV DEVICE CHECK Lead Channel Setting Pacing Amplitude 2.000 CV DEVICE CHECK Lead Channel Setting Pacing Pulse Width 0.4 CV DEVICE CHECK Lead Channel Impedance Value 494 CV DEVICE CHECK Lead Channel Pacing Threshold Amplitude 0.750 CV DEVICE CHECK Lead Channel Pacing Threshold Pulse Width 0.4 CV DEVICE CHECK Lead Channel Pacing Threshold Date 2025-01-13 CV DEVICE CHECK Lead Channel Setting Pacing Amplitude 1.250 CV DEVICE CHECK Lead Channel Setting Pacing Pulse Width 0.4 CV DEVICE CHECK Yakov Setting Mode (NBG Code) DDD CV DEVICE CHECK Ventricular chambers paced during CARGO HANDLER pacing. LVOnly CV DEVICE CHECK Yakov Setting Lower Rate Limit 60 CV DEVICE CHECK Ykaov Setting AT Mode Switch Rate 171 CV DEVICE CHECK Yakov Setting Maximum Tracking Rate 130 CV DEVICE CHECK Yakov Setting Maximum Sensor Rate 120 CV DEVICE CHECK Yakov Setting PAV Delay 150 CV DEVICE CHECK Yakov Setting DENISA Delay 90 CV DEVICE CHECK CARGO HANDLER LV-RV Delay 40 CV D EVICE CHECK [...] 6 CV DEVICE CHECK Date of Service 2025-01-21 CV DEVICE CHECK Anatomical Region Laterality Modality Device Interroga tion 01/14/2025 1:30 AM EDT Impressions 01/16/2025 1:40 AM EDT Normal Remote: No Events * Normal Device Function * Alerts or events: None * Battery: OK, 10.17 yrs * Sensing, impedance and thresholds reviewed * Programmed parameters reviewed * Presenting rhythm reviewed * Heart Rate Histograms reviewed * No significant changes noted Heart Failure Diagnostic: Stable * Heart failure diagnostics assessed through the device * Status: Stable * No overt HF present Narrative Procedure Note Deshaun Esqueda MD - 01/16/2025 IMPRESSION: Normal Remote: No Events * Normal Device Function * Alerts or events: None * Battery: OK, 10.17 yrs * Sensing, impedance and thresholds reviewed * Programmed parameters reviewed * Presenting rhythm reviewed * Heart Rate Histograms reviewed * No significant changes noted Heart Failure Diagnostic: Stable * Heart failure diagnostics assessed through the device * Status: Stable * No overt HF present us Deshaun Esqueda MD CV IMPLANTABLE CARDIAC DEV ICE PROCEDURES Final Result * Basic metabolic panel (07/08/2024 12:00 PM EST) Sodium 140 133 - 145 mmol/L LAB CHEMISTRY METHOD 07/08/2024 4:32 PM EST [facility] Potassium 4.7 3.5 - 5.5 mmol/L LAB CHEMISTRY METHOD 07/08/2024 4:32 PM [facility] Chloride 110 96 - 110 mmol/L LAB CHEMISTRY METHOD 07/08/2024 4:32 PM [facility] CO2 27 21 - 32 mmol/L LAB CHEMISTRY METHOD 07/08/2024 4:32 PM [facility] Anion Gap 3 3 - 11 LAB CHEMISTRY METHOD 07/08/2024 4:32 PM [facility] Glucose 81 70 - 100 mg/dL LAB CHEMISTRY METHOD 07/08/2024 4:32 PM [facility] BUN 16 5 - 25 mg/dL LAB CHEMISTRY METHOD 07/08/2024 4:32 PM [facility] Creatinine 0.61 0.50 - 1.10 mg/dL LAB CHEMISTRY METHOD 07/08/2024 4:32 PM [facility] eGFR 110 >=60 mL/min/1. 73m2 LAB CHEMISTRY METHOD 07/08/2024 4:32 PM [facility] Comment:Calculation based on the Chronic Kidney Disease Epidemiology Collaboration (CKD-EPI) equation refit without adjustment for race. BUN/Creatinine Ratio 26.2 LAB CHEMISTRY METHOD 07/08/2024 4:32 PM [facility] Calcium 9.3 8.5 - 10.5 mg/dL LAB CHEMISTRY METHOD 07/08/2024 4:32 PM [facility] Blood Venous blood specimen / Unknown Venipuncture / Unknown 07/08/2024 12:00 PM EST 07/08/2024 12:33 PM EST us Julia Flynn NP LAB BLOOD ORDERABLES F inal Result [facility] [address] [place] [address], [place] [phone] from Last 3 Months or Most Recently Relevant to Health Maintenance Insurance MEDICARE MEDICAID - [place] Care Teams Milling Supervisor Relationship Specialty Start Date End Date Mechelle Ortega MD [address] [facility] [address] [address] PCP - General Internal Medicine 04/30/24
--- OUTSIDE RECORDS SUMMARY | 2025-01-26 15:22 | XMS_ITS | Encounter Summary ---
Author Organization [facility] Address [address] [place] [address] Phone Care Team Providers Care Programming Intern Name Role Phone Mechelle Ortega MD Primary Care Provider [phone] Encounter Details Date Type Department Care Team (Late st Contact Info) Description 04/01/2024 Procedure Pass [facility] Periop [address] [place] [address] Social History Tobacco Use Types Packs/Day Years Used Date Smoking Tobacco: Never Assessed Education Answer Date Recorded Are you interested in more education? Not on poppy e 02/26/2024 Are you concerned about learning? Not on file 02/26/2024 No 02/26/2024 No 02/26/2024 Digital Access Answer Date Recorded No 02/26/2024 No 02/26/2024 Reliable internet access at home? Not on file 02/26/2024 Device with a working camera? Not on file Comments Unknown Sex and Gender Information Value Date Recorded Sex Assigned at Not on file Legal Sex Female 6:35 PM EST Gender Identity Not on file Sexual Orientation Not on file documented as of this encounter Plan of Treatment Not on file documented as of this encounter Visit Diagnoses Not on filedocumented in this encounter Care Teams Programming Intern Relationship Specialty Start Date End Date Mechelle Ortega MD [address] [place] [id number] [email or web address] PCP - General Internal Medicine 9/11/24 documented as of this encounter Additional Source Comments The information contained in this document represents components of the legal health record. It is not the complete legal health record.[facility]
--- OUTSIDE RECORDS SUMMARY | 2025-01-26 15:22 | XMS_ITS | Clinical Summary ---
Author Organization [facility] Address [address] [place] [address] Care Team Providers Care Drum Stenciler Name Role Phone Michael Manjarrez MD Primary Care Provider [phone] Allergies Active Allergy Reactions Criticality Noted Date [...] 82 03/03/2018 2:09 PM EDT Temperature 36.6 C (97.8 F) 03/03/2018 2:09 PM EDT Respiratory Rate - - Oxygen Saturation - [...] Cancer Screening (Colonoscopy) 01/28/2021 Influenza Vaccine (#1) 2025 Pneumococcal Vaccine Aged Out No long er eligible based on patient's age to complete this topic RSV Ped < 20 months Aged Out No longe r eligible based on patient's age to complete this topic Care Teams Drum Stenciler Relationship Specialty Start Date End Date Michael Manjarrez MD [address] [place] [address] PCP - General Internal Medicine 02/28/18
== END 2025-01-26 14:28 | disposition home or self-care (01) ==
LOC: HO.HAP 14:27
PROVIDERS: Visit Provider Internal Medicine
DX: Z13.89 Encounter for screening for other disorder (principal)

== ENCOUNTER 2025-04-28 14:22 | Outpatient (REF) | payer MEDICARE, MEDICAID, SELFPAY ==
--- OUTSIDE RECORDS SUMMARY | 2024-04-29 06:50 | XMS_ITS | Encounter Summary ---
Author Organization [facility] Address [address] [place] [address] [place] [phone] Phone Care Team Providers Care Artificial Limb Fitter Name Role Phone Mechelle Ortega MD Primary Care Provider [phone] Encounter Details Date Type Department Care Team (Late st Contact Info) Description 04/29/2024 6:50 AM EST Hospital Encounter [facility] [address] [place] [address] Nahid Downs MD [address] [place] [id number] [email or web address] Social History Tobacco Use Types Packs/Day Years Used Date Smoking Tobacco: Never Smokeless Tobacco: Never Education Answer Date Recorded Are you interested in more education? Not on poppy e 02/26/2024 Are you concerned about learning? Not on file 02/26/2024 No 02/26/2024 No 02/26/2024 Residential Stability Answer Date Recor ded What is your housing situation today? I have georgina ceron 04/29/2024 Number of times moved in last year Not on file 04/29/2024 Digital Access Answer Date Recorded No 02/26/2024 No 02/26/2024 Reliable internet access at home? Not on file 02/26/2024 Device with a working camera? Not on file Intimate Partner Violence Answer Date R ecorded Are you denied basic needs s uch as food, clothing, or medical care? No 04/29/2024 In the past 12 months have y ou been in a relationship with a person who hurts, threatens, or tries to control you? No 04/29/2024 Are you denied basic needs s uch as food, clothing, or medical care? No 04/29/2024 In the past 12 months have y ou been in a relationship with a person who hurts, threatens, or tries to control you? No 04/29/2024 Comments Unknown Sex and Gender Information Value Date Recorded Sex Assigned at Not on file Legal Sex Female 6:35 PM EST Gender Identity Not on file Sexual Orientation Not on file documented as of this encounter Functional Status * Calculated C-SSRS Risk Score (Lifetime/Recent) Answer Date of Assessment Author No Risk Indicated 04/29/2024 3:45 PM EST Susana Dawkins RN * [place] Suicide Severity Rating Scale (Screener/Recent Self-Report) Question Answer Date of Assessment Author 1. Wish to be (Past 1 Month) No 04/29/2024 3:45 PM EST Sherrie De La O RN 2. Non-Specific Active Suicidal Thoughts (Past 1 Month) No 04/29/2024 3:45 PM EST Sherrie De La O RN 6. Suicidal Behavior (Lifetime) No 04/29/2024 3:45 PM EST Sherrie De La O RN documented as of this encounter Plan of Treatment Not on file documented as of this encounter Procedures Procedure Name Priority Date/Time Associated Diagnosis Comments FL FLUOROSCOPY Routine 04/29/2024 12:12 PM EST Pain TYPE AND SCREEN (ABO,RH,ANTIBODY SCREEN) Routine 04/29/2024 7:03 AM EST documented in this encounter Results * FL FLUOROSCOPY (04/29/2024 12:12 PM EST) Narrative SD - 04/29/2024 12:14 PM EST This imaging order was used as part of an OR case and the order has been auto-finalized. us Nahid MCGOVERN MARLINE Final Result JOAQUÍN_CEASAR * Type and Screen (ABO,Rh,Antibody Screen) (04/29/2024 7:03 AM EST) Expiration Date of Sample 05/02/2024 11:59 PM 04/29/2024 9:08 AM EST [facility] Resulting Agency [facility] ABO Type B 04/29/2024 9:08 AM EST [facility] Rh Type Positive 04/29/2024 9:08 AM EST [facility] Antibody Screen Negative 04/29/2024 9:08 AM EST [facility] 04/29/2024 7:03 AM EST 04/29/2024 8:01 AM EST us Nahid Downs MD LAB BLOOD BANK TEST ORDERABLES F inal Result Performing Organization Address City/State/[facility] Co de Phone Number [facility] [address] [place] [phone] documented in this encounter Visit Diagnoses Diagnosis Pain Generalized pain documented in this encounter Care Teams Artificial Limb Fitter Relationship Specialty Start Date End Date Mechelle Ortega MD [address] [place] [address] [email or web address] PCP - General Internal Medicine 02/26/24 documented as of this encounter Additional Source Comments The information contained in this document represents components of the legal health record. It is not the complete legal health record.[facility]
--- NOTE | 2025-04-28 15:27 | MHC.AU.HA3 ---
Hearing Instrument Follow-Up- Binaural Date of Visit: 04/28/25 Right Ear: Make, Model, Color, Serial Number: Oticon Xceed 2 BTE SP SN: [id number] Color: Silver Computer Systems Software Engineer Repair Warranty: 04/11/2027 Computer Systems Software Engineer Loss and Damage Warranty: 04/11/2027 [facility] Service Plan: 03/27/2025 Battery Size: 13 Earmold/Dome/CShell/SlimTip:Gigi Half Shell [facility] SN:[id number] Diana: 01/18/2025 Dispensed By: [facility] Date of Fittin03/27/2024 Left Ear: Make, Model, Color, Serial Number: Oticon Xceed 2 BTE SP SN: [id number] Color: Silver [employer] Software Engineer Repair Warranty: 04/11/2027 Computer Systems Software Engineer Loss and Damage Warranty: 04/11/2027 [facility] Service Plan: 03/27/2025 Battery Size: 13 Earmold/Dome/CShell/SlimTip: Gigi Full Shell 40 [facility] SN: [id number] Diana: 06/18/2024 Dispensed By: [facility] Date of Fittin03/27/2024 Follow-Up Summary: Accompanied by mother. Routine tubing change. Tubing already hard, right tubing pulling out of EM. Cleaned HAs (2). Cleaned EMs (2). Replaced tubing (2). [address] x6. Used TRS 13 Super Thick tubing. Vacuumed microphones. Ran through dehumidifier. Listening check demonstrated HAs amplifying clearly. Still some difficulty inserting helix portion of left EM; reported she gets in it most of the time. Recommendations: Hearing instrument follow-up or maintenance as needed. Please contact our clinic with any questions or concerns. Diagnosis Code(s): Primary Diagnosis: H90.3 Bilateral Sensorineural Hearing Loss Signature: Provider: Michela Kuhn, [facility]
--- OUTSIDE RECORDS SUMMARY | 2025-04-28 17:50 | XMS_ITS | Encounter Summary ---
Author Organization [facility] Address [address] [place] [address] Phone Care Team Providers Care Vehicle Sales Professional Name Role Phone Mechelle Ortega MD Primary Care Provider [phone] Encounter Details Date Type Department Care Team (Late st Contact Info) Description 04/29/2024 Procedure Pass [facility] [address] [place] [address] Social History Tobacco Use Types Packs/Day Years [...] Author No Risk Indicated 04/29/2024 3:45 PM Susana Kinsey RN * [place] Suicide Severity Rating Scale (Screener/Recent Self-Report) Question Answer Date of Assessment Author 1. Wish to be (Past 1 Month) No 04/29/2024 3:45 PM Sherrie Colón RN 2. Non-Specific Active Suicidal Thoughts (Past 1 Month) No 04/29/2024 3:45 PM Sherrie Colón RN 6. Suicidal Behavior (Lifetime) No 04/29/2024 3:45 PM Sherrie Colón RN documented as of this encounter Plan of Treatment Not on file documented as of this encounter Visit Diagnoses Not on filedocumented in this encounter Care Teams Vehicle Sales Professional Relationship Specialty Start Date End Date Mechelle Ortega MD [address] [place] [address] [email or web address] PCP - General Internal Medicine 02/26/24 documented as of this encounter Additional Source Comments The information contained in this document represents components of the legal health record. It is not the complete legal health record[facility]
--- OUTSIDE RECORDS SUMMARY | 2025-04-28 17:50 | XMS_ITS | Continuity of Care Document ---
Author Organization [place] [facility], [facility] Address [address] [place] [address] Care Team Providers Care Director Packaging Name Role Phone SAMI THOMASON Primary Care Provider Assessment Encounter Date Assessment Date Assessment LastModified by Organization Details LastModified Time 04/02/2025 04/02/2025 50-year-old female with history of chronic OE, recurrent cerumen impactions, and hearing loss using amplification presents for routine ear cleaning. Cerumen impaction removed bilaterally. Otologic exam is stable. She will follow-up in 6 weeks for routine debridement, or sooner with any worsening symptoms. [email or web address] Not available 04/02/2025 12:05:34 Plan of Treatment Reminders Order Date Submit Date Provider Last Modified By Organization Details Last Modified Time Details Appointments Establish ed 15 2024 11:15A M BERNICE SPEARS PA-C Not available Not available Not available FOLLOW UP 2024 04:00P Ricardo SPEARS PA-C Not available Not available Not available Establish ed 15 2025 01:15P FLOYD HAN Not available Not available Not available Establish ed 15 2025 11:15A M FLOYD DURON Not available Not available Not available Lab None recorded. Referral None recorded. Procedures None recorded. Surgeries None recorded. Imaging None recorded. Medication Orders None recorded. Patient TargetsNo targets recorded. Patient InstructionsNo instructions recorded. Reason for Referral None Reported. Problems Name Problem SNOMED Code Status Onset Date Resolution Date Notes Provider Name and Address Organization Details Recorded Time Impacted cerumen 93598493 Active 2014 Impacted cerumen; CMS Risk: low risk CMS Treatmen t: new problem (to examiner ): no addition al workup planned Not Available [facility] 4 02:53:45 Impacted cerumen of bilatera l ears 79840779835 40026 Active 2014 Impacted cerumen, bilatera l; Note: Date Diagnose d: 5 2:31 PM (H61.23) [mapped from ICD9 code: 380.4] Not Available [facility] 4 02:53:46 Chronic mycotic otitis externa 396487438 Active 2014 Chronic mycotic otitis externa; Note: Date Diagnose d: 5 2:29 PM (380.15) Not Available [facility] 4 02:53:43 Mixed conducti ve and sensorin eural hearing loss, bilatera l 866533287 Active 2014 Mixed hearing loss, bilatera l; Note: Date Diagnose d: 5 12:14 PM (389.22) Mixed conducti ve and sensorin eural hearing loss, bilatera l; Note: Date Diagnose d: 5 12:14 PM (H90.6) [mapped from ICD9 code: 389.22] Not Available [facility] 4 02:53:46 Candidal otitis externa 69398353 Active 2014 Candidia sis: Candidal otitis externa; Note: Date Diagnose d: 5 12:14 PM (112.82) [mapped from ICD9 code: 389.22] Candid al otitis externa; Note: Date Diagnose d: 5 12:15 PM (B37.84) [mapped from ICD9 code: 112.82] Not Available [facility] 4 02:53:44 Bilatera l diffuse otitis externa 17358351268 70043 Completed 201801/17/2024 Diffuse otitis externa, bilatera l; Note: Date Diagnose d: 11/20/2018 2:38 PM (H60.313 ) BERNICE SPEARS PA-C [address] [place] [address], [place], [address] , [facility] - [facility] [place] 4 15:19:29 Sensorin eural hearing loss in right ear 99683034624 100 Active 2018 Sensorin eural hearing loss, unilater al, right ear, with restrict ed hearing on the contrala teral side; Note: Date Diagnose d: 9 4:51 PM (H90.A21 ) Not Available [facility] 4 02:53:45 Mixed conducti ve and sensorin eural hearing loss of left ear 16816713387 107 Active 2018 Mixed conducti ve and sensorin eural hearing loss, unilater al, left ear with restrict ed hearing on the contrala teral side; Note: Date Diagnose d: 9 4:51 PM (H90.A32 ) Not Available [facility] 4 02:53:47 Impacted cerumen in left ear 08053756443 50411 Active 2019 Impacted cerumen, left ear; Note: Date Diagnose d: 11/17/2019 1:33 PM (H61.22) Not Available [facility] 4 02:53:44 Diffuse otitis externa 17316793 Active 2019 Diffuse otitis externa, right ear; Note: Date Diagnose d: 11/17/2019 1:33 PM (H60.311 ) ; Start Date : 11/17/19 20 Diffu se otitis externa, left ear; Note: Date Diagnose d: 12/22/2019 1:58 PM (H60.312 ) Not Available [facility] 4 02:53:47 Otorrhea of bilatera l ears 99371326671 92674 Completed 202101/17/2024 Otorrhea , bilatera l; Note: Date Diagnose d: 03/27/20 22 3:43 PM (H92.13) Not Available [facility] 4 02:53:48 Otorrhea of right ear 07252205381 52537 Active 2022 Otorrhea , right ear; Note: Date Diagnose d: 3 11:49 AM (H92.13) Not Available [facility] 4 02:53:46 Impacted cerumen in right ear 91561000176 80506 Active 2022 Impacted cerumen, right ear; Note: Date Diagnose d: 3 1:57 PM (H61.21) Not Available [facility] 4 02:53:45 Bilatera l diffuse otitis externa 05790194480 08418 Active 2023 Diffuse otitis externa, bilatera l; Note: Date Diagnose d: 11/20/2018 2:38 PM (H60.313 ) BERNICE SPEARS [facility] [address] [facility], [address] , [place] - [facility] [place] 4 15:19:29 Problem Notes None recorded. Procedures Surgical History Date Name Laterality Status Provider Name and Address Organization Details Recorded Time 5 Cerumen removal without microscope bilat completed NUBIA MOULTON [facility],[address], [address], [place] - [facility] 04/02/2025 12:05:25 5 Cerumen removal without microscope bilat completed BERNICE SPEARS PA-C [address] [place] [address],[address], [address], [facility] - [facility] 02/19/2025 11:28:11 5 Cerumen removal without microscope bilat completed BERNICE SPEARS PA-C [address] [facility],[address], [address], [place] [facility] [place] 01/08/2025 11:52:42 5 Cerumen removal without microscope bilat completed BERNICE SPEARS PA-C [address] [facility],[address], [address], [facility] - [facility] 11/26/2024 11:44:03 5 Cerumen removal without microscope bilat completed BERNICE SPEARS PA-C [address] [facility],[address], [address], [place] - [facility] [place] 10/15/2024 11:18:37 5 Cerumen removal without microscope bilat completed BERNICE SPEARS PA-C [address] [place] [address],[address], [address], [facility] - [facility] [place] 07/22/2024 11:37:24 4 Cerumen removal without microscope bilat completed BERNICE SPEARS PA-C [address] [place] [address],[address], [address], [facility] - [facility] 04/23/2024 11:04:35 4 Cerumen removal without microscope bilat completed BERNICE SPEARS PA-C [address] [place] [address],[address], [address], [facility] 03/12/2024 11:07:32 4 Cerumen removal without microscope bilat completed BERNICE SPEARS PA-C [address] [place] [address],[address], [address], [facility] - [facility] 02/06/2024 15:55:18 4 Cerumen removal without microscope bilat completed BERNICE SPEARS PA-C [address] [place] [address],[address], [address], [facility] - [facility] 01/02/2024 12:54:36 4 Cerumen removal without microscope bilat completed BERNICE SPEARS PA-C [address] [place] [address], [address], [facility] - [facility] 11/21/2023 11:16:14 Imaging Results None recorded. Procedure Notes None recorded. Medical Equipment None Reported. Allergies Allergen ID Allergen Name Allergen Category Reaction Reaction Severity Criticality Documentation Date Start Date Code Code System Note Provider Name and Address Organization Details Recorded Time [id number] penicilli n V potassium medicatio n other Not available Not available 10/29/2023 5 RxNorm React ion: unkno wn, unspe cifie d;; Not Available [facility] 4 01:15:41 Medications Name Sig Start Date Stop Date Status Note LastModified by Organization Details LastModified Time Santyl 250 unit/gram topical ointment APPLY A NICKEL THICKNES S AMOUNT TO CLEANSED AFFECTED AREA BY TOPICAL ROUTE ONCE DAILY 02/19 completed Not Available Not Available Not Available atorvasta tin 80 mg tablet TAKE [...] 1 HOUR PRIOR TO DENTAL APPOINTM ENTS 02/19 completed Not Available Not Available Not Available lisinopri l 20 mg tablet 09/12 completed Medicati on ID: [id number] Du ration Value: 30 Brand Name: lisinopr il Send Method: E-Prescr ibed Sub s Allowed: subs OK Speci al Instruct ion: TAKE 1 TABLET BY MOUTH EVERY DAY Medi cationGe nericNam e: lisinopr il Not Available Not Available Not Available Ciloxan 0.3 % eye drops 03/08 completed Medicati on ID: [id number] Pr escribed By Name: NUBIA Sweet nd Name: Ciloxan Send Method: E-Prescr ibed Sub s Allowed: subs OK Speci al Instruct ion: Instill 4 drops twice a day into affected ear for 7 days Med icationG enericNa me: Ciloxan Not Available Not Available Not Available tramadol 50 mg tablet TAKE 1 TABLET EVERY 6 HOURS MOUTH AFTER MEAL(S) FOR 14 DAYS. active Not Available Not Available No t Available spironola ctone 25 mg tablet TAKE 1 TABLET BY MOUTH EVERY DAY active Not Available Not Available No t Available carvedilo l 3.125 mg tablet PLEASE SEE ATTACHED FOR DETAILED DIRECTIO NS 02/19 completed Not Available Not Available Not Available levothyro xine 100 mcg tablet TAKE 1 TABLET BY MOUTH EVERY DAY active Not Available Not Available No t Available levothyro xine 88 mcg tablet 02/19 completed Medicati on ID: [id number] B rand Name: levothyr oxine Se nd Method: E-Prescr ibed Sub s Allowed: subs OK Medic ationGen ericName : levothyr oxine Not Available Not Available Not Available sulfaceta mide sodium 10 % eye drops 02/19 completed Medicati on ID: [id number] D uration Value: 14 Brand Name: sulfacet amide sodium S end Method: E-Prescr ibed Sub s Allowed: subs OK Speci al Instruct ion: 4 drops to affected ear BID x 14 days Med icationG enericNa me: sulfacet amide sodium Not Available Not Available Not Available levothyro xine 50 mcg tablet 11/19 completed Medicati on ID: [id number] Du ration Value: 30 Reason: () Brand [...] mg tablet 09/12 completed Medicati on ID: [id number] D uration Value: 30 Brand Name: simvasta [...] BOTH EYES AT BEDTIME FOR TWO WEEKS. 02/19 completed Not Available Not Available Not Available clotrimaz ole-betam ethasone 1 %-0.05 % topical cream Apply 1 a small amount twice a day 02/19 completed Medicati on ID: [id number] D uration Value: 14 Brand Name: clotrima [...] EAR TWICE A DAY X 2 WEEKS 02/19 completed Not Available Not Available Not Available furosemid e 20 mg tablet TAKE 1 TABLET BY MOUTH DAILY NEEDED AND DIRECTED BY CARDIOLO GIST active Not Available Not Available No t Available naproxen 500 mg tablet TAKE 1 TABLET BY MOUTH TWICE A DAY active Not Available Not Available No t Available tobramyci n 0.3 %-dexamet hasone 0.1 % eye drops,isreal pension INSTILL 4 DROPS INTO BOTH EARS TWICE A DAY FOR 14 DAYS 02/19 completed Not Available Not Available Not Available oxycodone 5 mg tablet TAKE 1 TABLET BY MOUTH EVERY 6 HOURS NEEDED FOR 3 DAYS active Not Available Not Available No t Available azithromy bogdan 500 mg tablet TAKE 1 TABLET BY MOUTH ONCE FOR 1 DOSE. TAKE 30-60MIN PRIOR TO DENTAL PROCEDUR E 02/19 completed Not Available Not Available Not Available moxifloxa bogdan 0.5 % eye drops INSTILL ONE DROP INTO THE RIGHTY EYE 3 TIMES A DAY 02/19 completed Not Available Not Available Not Available Ciprodex 0.3 %-0.1 % ear drops,isreal pension Apply 4 drop into both ears twice a day 02/19 completed Medicati on ID: [id number] D uration Value: 14 Brand Name: Ciprodex Send Method: E-Prescr ibed Sub s Allowed: subs OK Medic ationGen ericName : Ciprodex Not Available Not Available Not Available Brilinta 90 mg tablet TAKE 1 TABLET BY MOUTH TWICE A DAY 02/19 completed Not Available Not Available Not Available Farxiga 10 mg tablet TAKE 1 TABLET BY MOUTH EVERY DAY active Not Available Not Available No t Available Entresto 97 mg-103 mg tablet TAKE 1 TABLET BY MOUTH TWICE A DAY 02/19 completed Not Available Not Available Not Available Entresto 24 mg-26 mg tablet TAKE 1 TABLET BY MOUTH TWICE A DAY active Not Available Not Available No t Available Vitals Date Recorded Body height Body mass index (BMI) Body weight Provider Name and Address Organization Details Last Updated DateTime 04/02/2025 144.78 cm 27 kg/m2 70887.05 g Emily Reji [place] - [facility] 04/02/2025 11:32:26 Social History None recorded. Functional Status None recorded. Mental Status None recorded. Family History Nothing Reported. Medical History Condition Response Diabetes Y Thyroid Problems Y Hypertension Y High Cholesterol Y GERD/Reflux Y Gynecological HistoryNo gynecological history recorded. Obstetrics History GPAL:G 0 P 0 0 0 0 Past Encounters Encounter ID Performer Location Encounter Start Date Encounter Closed Date Diagnosis/Indication Diagnosis SNOMED-CT Code Diagnosis ICD10 Code Diagnosis IMO Codes Diagnosis Note [id number] BERNICE SPEARS PA-C [facility] [address] [place] [address] 04/02/2025 11:18:16 04/02/2025 11:57:55 Impacted cerumen of bilateral ears 3566597142 026359 H61.23 Health Concerns Section Related Observation LastModified by Organization Detai ls LastModified Time None Recorded Concern Status LastModified by Organization Details LastModified Time None Recorded Payers Encounter Date Sequence Insurance Name Policy Number Policy Martinez Covered Member ID Martinez Member ID Guarantor Name 04/02/2025 2 [place] [facility] Thais Ricardo Kincaid [id number] Thais Kincaid 04/02/2025 1 [place] B[place] [employer] Thais M Sanjiv [id number] Thais Kincaid Notes Date Note Type Note Provider Name and Address Organization Details Recorded Time 04/02/2025 text/html ROS as noted in the HPI 50-year-old female with history of chronic OE, recurrent cerumen impactions, and hearing loss using amplification presents for routine ear cleaning. No concerns today. Accompanied by mom. OLEG NINO MD [address] [place] [address], [address], [place] - [facility] 04/02/2025 12:39:54 OBGyn Episode No OBEpisode recorded.
--- OUTSIDE RECORDS SUMMARY | 2025-04-28 17:50 | XMS_ITS | Clinical Summary ---
Author Organization [facility] Address [address] [place] [address] Care Team Providers Care Costume Cutter Name Role Phone Michael Manjarrez MD Primary Care Provider [phone] Allergies Active Allergy Reactions Criticality Noted Date [...] age to complete this topic Care Teams Costume Cutter Relationship Specialty Start Date End Date Michael Manjarrez MD [address] [place] [address] PCP - General Internal Medicine 02/28/18
--- OUTSIDE RECORDS SUMMARY | 2025-04-28 17:50 | XMS_ITS | Encounter Summary ---
Author Organization [facility] Address [address] [place] [address] Phone Care Team Providers Care Timber Selector Name Role Phone Mechelle Ortega MD Primary Care Provider [phone] Encounter Details Date Type Department Care Team (Late st Contact Info) Description 04/29/2024 Procedure Pass [facility] Periop [address] [place] [address] Social History Tobacco Use Types Packs/Day Years [...] 04/29/2024 3:45 PM Susana Kinsey RN * [place] Suicide Severity Rating Scale (Screener/Recent Self-Report) Question [...] on filedocumented in this encounter Care Teams Timber Selector Relationship Specialty Start Date End Date Mechelle Ortega MD [address] [place] [address] [email or web address] PCP - General Internal Medicine 02/26/24 documented as of this encounter Additional Source Comments The information contained in this document represents components of the legal health record. It is not the complete legal health record.[facility]
--- OUTSIDE RECORDS SUMMARY | 2025-04-28 17:50 | XMS_ITS | Encounter Summary ---
Author Organization [facility] Address [address] [place] [address] Phone Care Team Providers Care Gyro Mechanic Name Role Phone Mechelle Ortega MD Primary Care Provider [phone] Encounter Details Date Type Department Care Team (Late st Contact Info) Description 04/01/2024 Procedure Pass [facility] Periop [address] [place] [address] Social History Tobacco Use Types Packs/Day Years [...] on filedocumented in this encounter Care Teams Gyro Mechanic Relationship Specialty Start Date End Date Mechelle Ortega MD [address] [place] [address] [email or web address] PCP - General Internal Medicine 02/26/24 documented as of this encounter Additional Source Comments The information contained in this document represents components of the legal health record. It is not the complete legal health record.[facility]
--- OUTSIDE RECORDS SUMMARY | 2025-04-28 17:50 | XMS_ITS | Encounter Summary ---
Author Organization [facility] Address [address] [place] [address] Phone Care Team Providers Care Director Career Services Name Role Phone Mechelle Ortega MD Primary Care Provider [phone] Encounter Details Date Type Department Care Team (Late st Contact Info) Description 04/29/2024 Ancillary Orders Primary [facility]'s Department of Orthopaedics [address] [place] [address] Nahid Downs MD [address] [place] [id number] [email or web address] Pain (Primary Dx) Social History Tobacco Use Types Packs/Day Years Used Date Smoking Tobacco: Never Assessed Education Answer Date Recorded Are you interested in more education? Not on opppy e 02/26/2024 Are you concerned about learning? [...] 3:45 PM EST Susana Dawkins RN * [place] Suicide Severity Rating Scale (Screener/Recent Self-Report) Question Answer Date of Assessment Author 1. Wish to be (Past 1 Month) No 04/29/2024 3:45 PM EST Sherrie De La O RN 2. Non-Specific Active Suicidal Thoughts (Past 1 Month) No 04/29/2024 3:45 PM EST Sherrie eD La O RN 6. Suicidal Behavior (Lifetime) No 04/29/2024 3:45 PM EST Sherrie De La O RN documented as of this encounter Plan of Treatment Not on file documented as of this encounter Results * [place] FLUOROSCOPY (04/29/2024 12:12 PM EST) Narrative [facility] - 04/29/2024 12:14 PM EST This imaging order was used as part of an OR case and the order has been auto-finalized. us Nahid Downs MD [facility] Final Result [email or web address]_[facility] documented in this encounter Visit Diagnoses Diagnosis Pain- Primary Generalized pain Pain Generalized pain documented in this encounter Care Teams Director Career Services Relationship Specialty Start Date End Date Mechelle Ortega MD [address] [place] [address] [email or web address] PCP - General Internal Medicine 02/26/24 documented as of this encounter Additional Source Comments The information contained in this document represents components of the legal health record. It is not the complete legal health record.[facility]
--- OUTSIDE RECORDS SUMMARY | 2025-04-28 17:51 | XMS_ITS | Clinical Summary ---
Author Organization [address] [place] [address] Address [address] [place] [address] Phone Care Team Providers Care Systems Development Consultant Name Role Phone Mechelle Ortega MD Primary Care Provider [phone] Allergies Active Allergy Reactions Criticality Noted Date Comments Penicillins Hives,Other 07/20/2013 Medications levothyroxine (SYNTHROID, LEVOTHROID) 100 mcg tablet Take 1 Tablet by mouth. 6 days a week. Active atorvastatin (LIPITOR) 80 mg tablet Take 1 tablet (80 mg total) by mouth at bedtime. Active spironolactone (ALDACTONE) 25 mg tabletIndicatio ns:Ischemic [...] BY MOUTH DAILY NEEDED AND DIRECTED BY ARC FURNACE OPERATOR 90 tablet 1 5 Active Additional Information Patient not taking.Reported on 03/12/2025 Entresto 24-26 mg per tablet Take 1 tablet by mouth 2 (two) times a day. 180 tablet 3 5 Active Farxiga 10 mg tabletIndicatio ns:Ischemic cardiomyopathy, ST elevation (STEMI) myocardial infarction involving left anterior descending coronary artery ([facility] V24, [facility] V28) TAKE 1 TABLET BY MOUTH EVERY DAY 90 tablet 2 5 Active Active Problems Problem Noted Date Diagnosed Date Pre-op evaluation 03/12/2025 Assessment & Plan (03/12/2025 2:29 PM EDT): Reportedly said to have cyst removal immediately inferior of the anterior right knee. Reporting no new or worsening anginal signs at the appointment today. Does utilize a walker at baseline however her bedroom is on the second floor and she constantly goes up and down the stairs without any symptoms. Would like the patient to be able to stay on the carvedilol and baby aspirin during the procedure. Work on reach out to their office to make sure that they can accommodate this. There is no cardiac contraindication to the patient undergoing the procedure. CHF (congestive heart failure) ([facility] V24, [facility] V28) 03/11/2025 Assessment & Plan (03/12/2025 2:19 PM EDT): Patient appears euvolemic on exam today. Heart failure diagnostics stable on monitor/device. Should continue on the GDMT which includes carvedilol 6.25 mg p.o. twice daily, Entresto 24/26 mg p.o. twice daily, spironolactone 25 mg p.o. daily, and Farxiga 10 mg p.o. daily. Patient should check her weights daily which she has remained stable. Should limit sodium consumption. She has discontinued the furosemide. HFrEF (heart failure with re duced ejection fraction) ([facility] V24, [facility] V28) 03/11/2025 CAD (coronary artery disease) 03/11/[address] elevation myocardia l infarction (STEMI) due to occlusion of distal portion of left anterior descending (LAD) coronary artery ([facility] V24, [facility] V28) 07/26/2022 Overview (03/12/2025): See full history under cardiomyopathy section Assessment & Plan (03/12/2025 2:15 PM EDT): Continue high-dose atorvastatin and baby aspirin, no recurrent anginal symptoms. Patient reports no new or worsening symptoms at the appointment today. HLD (hyperlipidemia) 07/25/2022 Overview (05/12/2024): Last Assessment & Plan: Hyperlipidemia in the setting of coronary disease. She is on maximum statin therapy with atorvastatin 80 mg. No unusual myalgia. We can consider updating her lipid profile if it has not been done prior to follow-up. Continue healthful diet trying to walk for exercise but she can with physical limitations and hip pain. Assessment & Plan (03/12/2025 2:27 PM EDT): Utilizing 80 mg of high-dose atorvastatin. Would like LDL to be under 70. Should adhere to a healthy cardiac diet. HTN (hypertension) 07/25/2022 Assessment & Plan (03/12/2025 2:20 PM EDT): Controlled the appointment today. Denies any syncope/presyncope/dizziness. Please continue on the carvedilol 6.25 mg p.o. twice daily as well as a spironolactone 25 mg p.o. daily. Ischemic dilated cardiomyopathy (CMS/HCC V24, CM S/HCC V28) 07/25/2022 Overview (03/12/2025): - Status post admission to [facility] in May [address] CT - Taken urgently for left heart cath which showed 100% proximal LAD stenosis which received a drug-eluting stent, mild disease or minor luminal irregularities of the remaining coronaries - Ejection fraction during that hospitalization around 20% -Patient's echocardiogram on 04/2023 echocardiogram on 04/2023 revealed normal left ventricular size and wall thickness. Moderate segmental LV systolic dysfunction. Ejection fraction estimated to be closer to 40%. - She also was noted to be [...] in ejection fraction compared with October 2022 Assessment & Plan (03/12/2025 2:26 PM EDT): Patient reports no new or worsening anginal symptoms today. Can look to update an echocardiogram next year. Should remain on the baby aspirin, carvedilol, and high-dose atorvastatin. Instructed to call 911 or go to the emergency room should the patient begin to experience chest pain or pressure lasting greater than 10 minutes does not resolve with rest. Encounters Date Type Department Care Team Description 04/21/2025 2:55 PM EST Ancillary Procedure [facility] Cardiology [facility] [address] [place] [address] 04/15/2025 Telephone [facility] - [address] [place] [address] Deshaun Esqueda MD 03/24/2025 Telephone [facility] Cardiology [facility] - [facility] [address] [place] [address] Provider, Not In System 03/23/2025 1:05 PM EDT Ancillary Procedure [facility] - [address] [place] [address] 03/12/2025 1:40 PM EDT Consult [facility] - [address] [place] [address] Antoin Dodson NP Congestive heart failure, unspecified HF chronicity, unspecified heart failure type (CMS/HCC V24, CMS/HCC V28) (Primary Dx); Acute ST elevation myocardial infarction (STEMI) due to occlusion of distal portion of left anterior descending (LAD) coronary artery (CMS/HCC V24, CMS/HCC V28); Ischemic dilated cardiomyopathy (CMS/HCC V24, CMS/HCC V28); Primary hypertension; Pure hypercholesterolemia; Pre-op evaluation 03/12/2025 Telephone [facility] Cardiology [facility] - [address] [place] [address] Judy Haney MA 03/08/2025 Telephone [facility] - [address] [place] [address] Yadi Cabrales MA 02/24/2025 11:20 PM EDT Ancillary Procedure [facility] [address] [place] [address] from Last 3 Months Surgical History Surgery Date Site/Laterality Comments OTHER SURGICAL HISTORY PROCEDURE: HISTORY OTHER; COMMENT: Strangulated gut (7-10 years ago) Medical History Medical History Date Comments Class 2 obesity DX:Class 2 obesi ty Back pain DX:Back pain Left hip pain DX:Left hip pain Hypothyroidism DX:Hypothyroidis m Hip dislocation, left ([facility] V24, [facility] V28) Hypertension Hyperlipidemia Family History Medical History Relation Name Comments [...] Sign Reading Time Taken Comments Blood Pressure 100/72 03/12/2025 1:33 PM EDT Pulse 69 03/12/2025 1:33 PM EDT Temperature - - Respiratory Rate - - Oxygen Saturation 96% 03/12/2025 1:33 PM EDT Inhaled Oxygen Concentration - - Weight 62.5 kg (137 lb 12.8 oz) 03/12/2025 1:33 PM EDT Height 137.2 cm (4' 6 ) 03/12/2025 1:33 PM EDT Body Mass Index 33.22 03/12/2025 1:33 PM EDT Plan of Treatment Upcoming Encounters Date Type Department Care Team (Late st Contact Info) Description 06/28/2025 11:10 AM EST Office Visit [facility] Cardiology [facility] [address] [facility] [address] [place] [address] Antoni Dodson NP [address] [place] [address] [place] [id number] 07/12/2025 1:00 PM EST Ancillary Procedure [facility] Cardiology [facility] [address] [facility] [address] [place] [id number] Health Maintenance Due Date Last Done Comments Breast Cancer Screening 1976 Colorectal Cancer Screening: Colonoscopy 1975 DTaP,Tdap,and Td Vaccines (1 - Tdap) 01/28/1995 Hepatitis B Vaccines (1 of 3 - 19+ 3-dose series) 01/28/1995 Cervical Cancer Screening: Pap Smear 01/28/1997 Cholesterol Screening (Lipid Panel) 05/20/2022 HIV Screening 05/20/2022 Hepatitis C Screening 05/20/2022 Social Influencers of Health Screening 05/20/2022 Medicare Annual Wellness Visit 01/23/2024 01/22/2023 Depression Screening 06/17/2024 COVID-19 Vaccine ( season) 2025 08/30/2020, 08/09/2020 Hypertension/CHF/CAD Annual BMP Blood Test 07/08/2025 07/08/2024, 03/24/2024 RSV Immunization Adult Patients (1 - 1-dose 75+ series) 01/28/2051 Influenza Vaccine Completed 03/08/2025, , 04/21/2020, Additional history exists HIB Vaccines Aged Out [...] this topic Medical Devices Implanted Type Area Bridge Tender Device Identifier Shelf Expiration Date Model / Serial / Lot Medt-Card Desire Quad Ginner Helper-P [id number] Implanted:05/17 by Deshaun Esqueda MD (Quantity not on file) Cardiac AUTOMOBILE REPOSSESSOR-P Left: Chest [employer] - CARDIAC RHYTH-CRDM DESIRE QUAD AUTOMOBILE REPOSSESSOR-P [id number] / [id number] / Procedures Procedure Name Priority Date/Time Associated Diagnosis Comments CARDIAC DEVICE CHECK- REMOTE- MURJ Routine 04/21/2025 2:54 PM EST CARDIAC DEVICE CHECK- REMOTE- MURJ Routine 03/23/2025 1:03 PM EDT ECG 12-LEAD Routine 03/12/2025 2:29 PM EDT Congestive heart failure, unspecified HF chronicity, unspecified heart failure type (CMS/HCC V24, CMS/HCC V28) CARDIAC DEVICE CHECK- REMOTE- MURJ Routine 02/24/2025 11:16 PM EDT BASIC METABOLIC PANEL Routine 07/08/2024 12:00 PM EST Other congestive heart failure (CMS/HCC V24, CMS/HCC V28) from Last 3 Months or Most Recently Relevant to Health Maintenance Results * Cardiac device check - Remote- MURJ (04/21/2025 2:54 PM EST) Only the most recent of3 resultswithin the time period is included. Date Time Interrogation Session [id number] CV DEVICE CHECK Type Interrogation Session Remote CV DEVICE CHECK Implantable Pulse Generator Bridge Tender MDT CV DEVICE CHECK Implantable Pulse Generator Type AUTOMOBILE REPOSSESSOR-P CV DEVICE CHECK Implantable Pulse Generator Model Desire Quad AUTOMOBILE REPOSSESSOR-P [id number] CV DEVICE CHECK Implantable Pulse Generator Serial Number [id number] CV DEVICE CHECK Implantable Pulse Generator Implant Date 20220531 CV DEVICE CHECK Battery Remaining Longevity 119.0 CV DEVICE CHECK Battery Voltage 3.000 CV D EVICE CHECK Battery HAIR SAMPLE MATCHER Trigger 2.595 CV DEVICE CHECK Battery Status Middle of Service CV DEVICE CHECK Yakov Statistic RA Percent Paced 90.19 CV DEVICE CHECK Atrial Tachy Statistic AT/AF [place] Percent 0.00 CV DEVICE CHECK Lead Channel Sensing Intrinsic Amplitude 4.250 CV DEVICE CHECK Lead Channel Setting Sensing Sensitivity 0.60 CV DEVICE CHECK Lead Channel Impedance Value 399 CV DEVICE CHECK Lead Channel Pacing Threshold Amplitude 0.875 CV DEVICE CHECK Lead Channel Pacing Threshold Pulse Width 0.4 CV DEVICE CHECK Lead Channel RA Pacing Threshold Date 2025-04-14 CV DEVICE CHECK Lead Channel Setting Pacing Amplitude 1.750 CV DEVICE CHECK Lead Channel Setting Pacing Pulse Width 0.4 CV DEVICE CHECK Lead Channel Sensing Intrinsic Amplitude 18.000 CV DEVICE CHECK Lead Channel Setting Sensing Sensitivity 0.90 CV DEVICE CHECK Lead Channel Impedance Value 456 CV DEVICE CHECK Lead Channel Pacing Threshold Amplitude 1.000 CV DEVICE CHECK Lead Channel Pacing Threshold Pulse Width 0.4 CV DEVICE CHECK Lead Channel RV Pacing Threshold Date 2025-04-14 CV DEVICE CHECK Lead Channel Setting Pacing Amplitude 2.000 CV DEVICE CHECK Lead Channel Setting Pacing Pulse Width 0.4 CV DEVICE CHECK Lead Channel Impedance Value 513 CV DEVICE CHECK Lead Channel Pacing Threshold Amplitude 0.750 CV DEVICE CHECK Lead Channel Pacing Threshold Pulse Width 0.4 CV DEVICE CHECK Lead Channel Pacing Threshold Date 2025-04-14 CV DEVICE CHECK Lead Channel Setting Pacing Amplitude 1.250 CV DEVICE CHECK Lead Channel Setting Pacing Pulse Width 0.4 CV DEVICE CHECK Yakov Setting Mode (NBG Code) DDD CV DEVICE CHECK Ventricular chambers paced during AUTOMOBILE REPOSSESSOR pacing. LVOnly CV DEVICE CHECK Yakov Setting Lower Rate Limit 60 CV DEVICE CHECK Yakov Setting AT Mode Switch Rate 171 CV DEVICE CHECK Yakov Setting Maximum Tracking Rate 130 CV DEVICE CHECK Yakov Setting Maximum Sensor Rate 120 CV DEVICE CHECK Yakov Setting PAV Delay 150 CV DEVICE CHECK Yakov Setting DENISA Delay 90 CV DEVICE CHECK AUTOMOBILE REPOSSESSOR LV-RV Delay 40 CV D EVICE CHECK [...] 6 CV DEVICE CHECK Date of Service 2025-04-22 CV DEVICE CHECK Anatomical Region Laterality Modality Device Interroga tion 04/15/2025 2:21 AM EDT Impressions 04/21/2025 2:47 PM EST Heart Failure Diagnostic: Elevated Forwarded to triage to evaluate for HF * Heart failure diagnostics assessed through the device * Status: Elevated * Thoracic Impedance is below the reference line. Narrative Procedure Note Deshaun Esqueda MD - 04/21/2025 IMPRESSION: Heart Failure Diagnostic: Elevated Forwarded to triage to evaluate for HF * Heart failure diagnostics assessed through the device * Status: Elevated * Thoracic Impedance is below the reference line. us Deshaun Esqueda MD CV IMPLANTABLE CARDIAC DEV ICE PROCEDURES Final Result * ECG 12 lead (03/12/2025 2:29 PM EDT) us Antoni Dodson NP ECG ORDERABLES Final Result GEMUSE * Basic metabolic panel (07/08/2024 12:00 PM EST) Sodium 140 133 - 145 mmol/L LAB CHEMISTRY METHOD 07/08/2024 4:32 PM EST [facility] Potassium 4.7 3.5 - 5.5 mmol/L LAB CHEMISTRY METHOD 07/08/2024 4:32 PM [facility] Chloride 110 96 - 110 mmol/L LAB CHEMISTRY METHOD 07/08/2024 4:32 PM [facility] CO2 27 21 - 32 mmol/L LAB CHEMISTRY METHOD 07/08/2024 4:32 PM [facility] Anion Gap 3 3 - 11 LAB CHEMISTRY METHOD 07/08/2024 4:32 PM [facility] Glucose 81 70 - 100 mg/dL LAB CHEMISTRY METHOD 07/08/2024 4:32 PM [facility] BUN 16 5 - 25 mg/dL LAB CHEMISTRY METHOD 07/08/2024 4:32 PM [facility] Creatinine 0.61 0.50 - 1.10 mg/dL LAB CHEMISTRY METHOD 07/08/2024 4:32 PM [facility] eGFR 110 >=60 mL/min/1. 73m2 LAB CHEMISTRY METHOD 07/08/2024 4:32 PM [facility] Comment:Calculation based on the Chronic Kidney Disease Epidemiology Collaboration (CKD-EPI) equation refit without adjustment for race. BUN/Creatinine Ratio 26.2 LAB CHEMISTRY METHOD 07/08/2024 4:32 PM [facility] Calcium 9.3 8.5 - 10.5 mg/dL LAB CHEMISTRY METHOD 07/08/2024 4:32 PM [facility] Blood Venous blood specimen / Unknown Venipuncture / Unknown 07/08/2024 12:00 PM EST 07/08/2024 12:33 PM EST us Julia Flynn NP LAB BLOOD ORDERABLES F inal Result [facility] [address] [place] [address], [place] [phone] from Last 3 Months or Most Recently Relevant to Health Maintenance Insurance MEDICARE [place]ICAID [place] Care Teams Systems Development Consultant Relationship Specialty Start Date End Date Mechelle Ortega MD [address] [facility] [address] [place] [address] PCP - General Internal Medicine 04/30/24
--- OUTSIDE RECORDS SUMMARY | 2025-04-28 17:51 | XMS_ITS | Clinical Summary ---
Author Organization [facility] Address [address] [place] [address] Phone Care Team Providers Care Submarine Advisory Team Watch Officer Name Role Phone Mechelle Ortega MD Primary Care Provider [phone] Allergies Active Allergy Reactions Criticality Noted Date Comments Penicillins Hives,Other (See Comments) 03/03/20 18 Medications FARXIGA 10 mg tablet Take 10 mg by mouth daily. Pt stopped since saturday02/16/2024 Active SACUBITRIL-VALS LEANNA 24-26 mg per tablet Take 1 tablet by mouth 2 (two) times a day. 01/14/2024 Active carvedilol (COREG) 6.25 MG tablet Take 6.25 mg by mouth 2 (two) times a day with meals. 02/25/2024 Active spironolactone (ALDACTONE) 25 MG tablet Take 25 mg by mouth daily. 01/13/2024 Active levothyroxine (SYNTHROID, LEVOTHROID) 100 MCG tablet Take 100 mcg by mouth daily. Active atorvastatin (LIPITOR) 80 MG tablet Take 80 mg by mouth daily. 12/20/2023 Active acetaminophen (TYLENOL) 500 MG tablet Take 2 tablets (1,000 mg total) by mouth 3 (three) times a day. 04/30/2024 Active naproxen (NAPROSYN) 500 MG tablet Take 1 tablet (500 mg total) by mouth 2 (two) times a day with meals. For pain 04/30/2024 Active traMADoL (ULTRAM) 50 mg tablet Take 1-2 tablets (50-100 mg total) by mouth every 8 (eight) hours as needed. 15 tablet 05/19/2024 Active Active Problems Problem Noted Date Diagnosed Date Status post left hip replacement 04/29/2024 Immunizations Immunization Administration Dates Next Due INFLUENZA, SPLIT VIRUS, TRIVALENT PF 04/30/2024 Social History Tobacco Use Types Packs/Day Years Used Date Smoking Tobacco: Never Smokeless Tobacco: Never Tobacco Cessation:Counseling Given: Not Answered Education Answer Date Recorded Are you interested [...] Sign Reading Time Taken Comments Blood Pressure 95/52 04/30/2024 12:02 PM EST Pulse 81 04/30/2024 12:02 PM EST Temperature 36.4 C (97.6 F) 08/17/2024 11:27 AM EST Respiratory Rate 18 04/30/2024 12:02 PM EST Oxygen Saturation 90% 04/30/2024 12:02 PM EST Inhaled Oxygen Concentration - - Weight 57.6 kg (127 lb) 04/29/2024 3:45 PM EST Height 137.2 cm (4' 6 ) 04/29/2024 3:45 PM EST Body Mass Index 30.62 04/29/2024 3:45 PM EST Plan of Treatment Health Maintenance Due Date Last Done Comments Adult Td,Tdap Booster 1976 LIPID PANEL 1976 TSH LEVEL 1976 DEPRESSION SCREENING 1988 HEPATITIS C SCREENING 01/28/1994 HIV ONE-TIME SCREENING (18-65 YEARS) 01/28/1994 PNEUMOCOCCAL VACCINES (0-49 years) (1 of 2 - PCV) 01/28/1995 PAP SMEAR 01/28/1997 MAMMOGRAM 2016 COLOGUARD 01/28/2021 COLONOSCOPY 01/28/2021 COLORECTAL CANCER SCREENING 01/28/2021 FIT TEST 01/28/2021 FOBT 01/28/2021 SIGMOIDOSCOPY 01/28/2021 VIRTUAL COLONOSCOPY 01/28/2021 INFLUENZA VACCINE (#1) 2025 , 04/21/2020, 05/12/2019, Additional history exists COVID-19 VACCINE ( season) 2025 08/30/2020, 08/09/2020 POTASSIUM LEVEL 04/30/2025 04/30/2024, 03/24/2024 SCREENING FOR DIABETES 03/24/2027 03/24/2024, 2023 SMOKING STATUS SCREENING (Once After 26 Yrs) Completed 06/15/2024 HEPATITIS A VACCINES Aged Out No long er eligible based on patient's age to complete this topic HIB VACCINES Aged Out No longer eligi ble based on patient's age to complete this topic MENINGOCOCCAL VACCINES (ACWY) Aged Out No longer eligible based on patient's age to complete this topic MENINGOCOCCAL VACCINES (B) Aged Out N o longer eligible based on patient's age to complete this topic Medical Devices Implanted Type Area Media Law Faculty Member Device Identifier Shelf Expiration Date Model / Serial / Lot Pacemaker Pacemaker Hip Shell 48mm Acetabular Multihole G7 - [id number] Implanted:Qty : 1 on 04/29/2024 by Nahid Downs MD at [facility] Left: Hip [employer] 07/15/2033 [id number] / / [id number] Screw Bone 6.5x25mm Hip Acetabular Dome G7 Low Profile - [id number] Implanted:Qty : 1 on 04/29/2024 by Nahid Downs MD at [facility] Left: Hip [employer] [id number] 03/08/2033 [id number] / / [id number] Screw Hip 6.5x20mm G7 Low Profile Dome 16a - [id number] Implanted:Qty : 1 on 04/29/2024 by Nahid Downs MD at [facility] Left: Hip [employer] [id number] 09/17/2033 [id number] / / [id number] Hip Liner 32mm C Acetabular Neutral G7 Vit E - [id number] Implanted:Qty : 1 on 04/29/2024 by Nahid Downs MD at [facility] Left: Hip NONI BIOMET [id number] 11/25/2028 [id number] / / [id number] [facility] 33.5mm 47m444.9 125deg Stem Femoral Hip Modular Protasul 64 Titanium Alloy Corundum Blasted Offset - [id number] Implanted:Qty : 1 on 04/29/2024 by Nahid Downs MD at [facility] Left: Hip NONI BIOMET [id number] 12/05/2027 [id number] / / [id number] Hip 32mm 3.5 Hd Biolox Delta Ceramic Plus Implant 04 - [id number] Implanted:Qty : 1 on 04/29/2024 by Nahid Downs MD at [facility] Left: Hip NONI BIOMET [id number] 03/02/2033 [id number] / / [id number] Procedures Procedure Name Priority Date/Time Associated Diagnosis Comments BASIC METABOLIC PANEL (BMP) Routine 04/30/2024 8:28 AM EST from Last 3 Months or Most Recently Relevant to Health Maintenance Results * (ABNORMAL) Basic metabolic panel (04/30/2024 8:28 AM EST) [facility] SODIUM 133(L) 136 - 145 mmol/L [facility] POTASSIUM 4.3 3.4 - 5.1 mmol/L [facility] CHLORIDE 97(L) 98 - 107 mmol/L [facility] CO2 23 22 - 31 mmol/L [facility] BUN 12 6 - 23 mg/dL [facility] CREATININE 0.83 0.50 - 1.20 mg/dL [facility] GLUCOSE 213(H) 70 - 100 mg/dL [facility] CALCIUM 8.2(L) 8.8 - 10.7 mg/dL [facility] EGFR 87 >59 mL/min/1.7 3m2 [facility] Comment:Estimated glomerular filtration rate calculated using the CKD-EPI refit equation. ANION GAP 13 7 - 17 mmol/L [facility] Blood 04/30/2024 8:28 AM EST 04/30/2024 8:39 AM EST us Nahid Downs MD LAB BLOOD BKR ORDERABLES Final R esult Performing Organization Address City/State/[facility] Phone Number [facility] [address] [place] [address] from Last 3 Months or Most Recently Relevant to Health Maintenance Insurance [place] [id number] [facility] MEDICARE PART A & B HEALTH MEDICARE PART A & [place] A & B Member Subscriber Plan / Payer (Ef fective 2003-Present) Name:Thais Kincaid Member ID:[id number] Relation to Subscriber:Self Name:Thais Kincaid Subscriber ID:[id number] Payer ID:[id number] Group ID:Not on file Type:Medicare Address: [employer] [address] B [place] MED[place] PART A & B [facility] Advance Directives For more information, please contact: [phone] (9AM - 5PM [facility], Saturday-Saturday) Documents on File Type Date Recorded 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 It is not the complete legal health record.[facility]
--- OUTSIDE RECORDS SUMMARY | 2025-04-28 17:51 | XMS_ITS | Data Portability ---
Author Organization [place] - [facility], Allergy Address [address] [address] Care Team Providers Care Dog Daycare Provider Name Role Phone SAMI THOMASON Primary Care Provider [phone] Assessment Encounter Date Assessment Date Assessment LastModified by Organization Details LastModified Time 10/15/2024 10/15/2024 49-year-old female with history of chronic OE, recurrent cerumen impactions, and hearing loss using amplification presents for routine ear cleaning. Cerumen impaction removed bilaterally. Otologic exam is stable. She will follow-up in 6 weeks for routine debridement, or sooner with any worsening symptoms. stephen Not available 10/15/2024 11:18:41 11/26/2024 11/26/2024 49-year-old female with history of chronic OE, recurrent cerumen impactions, and hearing loss using amplification presents for routine ear cleaning. Cerumen impaction removed bilaterally. Otologic exam is stable. She will follow-up in 6 weeks for routine debridement, or sooner with any worsening symptoms. [email or web address] Not available 11/26/2024 11:44:16 01/08/2025 01/08/2025 49-year-old female with history of chronic OE, recurrent cerumen impactions, and hearing loss using amplification presents for routine ear cleaning. Cerumen impaction removed bilaterally. Otologic exam is stable. She will follow-up in 6 weeks for routine debridement, or sooner with any worsening symptoms. [email or web address] Not available 01/08/2025 11:52:47 02/19/2025 02/19/2025 50-year-old female with history of chronic OE, recurrent cerumen impactions, and hearing loss using amplification presents for routine ear cleaning. Cerumen impaction removed bilaterally. Otologic exam is stable. She will follow-up in 6 weeks for routine debridement, or sooner with any worsening symptoms. stephen Not available 02/19/2025 11:28:38 04/02/2025 04/02/2025 50-year-old female with history of chronic OE, recurrent cerumen impactions, and hearing loss using amplification presents for routine ear cleaning. Cerumen impaction removed bilaterally. Otologic exam is stable. She will follow-up in 6 weeks for routine debridement, or sooner with any worsening symptoms. Not available 04/02/2025 12:05:34 Plan of Treatment Reminders Order Date Submit Date Provider Last Modified By Organization Details Last Modified Time Details Appointments Establish ed 15 2024 11:15A M BERNICE SPEARS PA-C Not available Not available Not available FOLLOW UP 15 2024 04:00P M BERNICE SPEARS PA-C Not available Not available Not available Establish ed 15 2025 01:15P M FLOYD PEREZ Not available Not available Not available Establish [...] Address Organization Details Recorded Time Impacted cerumen 96972799 Active 2014 Impacted cerumen; CMS Risk: low risk CMS Treatmen t: new problem (to examiner ): no addition al workup planned Not Available [facility] 4 02:53:45 Impacted cerumen of bilatera l ears 61684515140 27077 Active 2014 Impacted cerumen, bilatera l; Note: Date Diagnose d: 5 2:31 PM (H61.23) [mapped from ICD9 code: 380.4] Not Available [facility] 4 02:53:46 Chronic mycotic otitis externa 871140729 Active 2014 Chronic mycotic otitis externa; Note: Date Diagnose d: 5 2:29 PM (380.15) Not Available [facility] 4 02:53:43 Mixed conducti ve and sensorin eural hearing loss, bilatera l 638995856 Active 2014 Mixed hearing loss, bilatera l; Note: Date Diagnose d: 5 12:14 PM (389.22) Mixed conducti ve and sensorin eural hearing loss, bilatera l; Note: Date Diagnose d: 5 12:14 PM (H90.6) [mapped from ICD9 code: 389.22] Not Available [facility] 4 02:53:46 Candidal otitis externa 79990192 Active 2014 Candidia sis: Candidal otitis externa; Note: Date Diagnose d: 5 12:14 PM (112.82) [mapped from ICD9 code: 389.22] Candid al otitis externa; Note: Date Diagnose d: 5 12:15 PM (B37.84) [mapped from ICD9 code: 112.82] Not Available [facility] 4 02:53:44 Bilatera l diffuse otitis externa 66797233543 24448 Completed 201801/17/2024 Diffuse otitis externa, bilatera l; Note: Date Diagnose d: 11/20/2018 2:38 PM (H60.313 ) BERNICE SPEARS PA-C [address] [place] [address], [place], [address] , [facility] - [facility] 4 15:19:29 Sensorin eural hearing loss in right ear 33667919343 100 Active 2018 Sensorin eural hearing loss, unilater al, right ear, with restrict ed hearing on the contrala teral side; Note: Date Diagnose d: 9 4:51 PM (H90.A21 ) Not Available [facility] 4 02:53:45 Mixed conducti ve and sensorin eural hearing loss of left ear 75601203556 107 Active 2018 Mixed conducti ve and sensorin eural hearing loss, unilater al, left ear with restrict ed hearing on the contrala teral side; Note: Date Diagnose d: 9 4:51 PM (H90.A32 ) Not Available [facility] 4 02:53:47 Impacted cerumen in left ear 78449235336 78104 Active 2019 Impacted cerumen, left ear; Note: Date Diagnose d: 11/17/2019 1:33 PM (H61.22) Not Available [facility] 4 02:53:44 Diffuse otitis externa 30715613 Active 2019 Diffuse otitis externa, right ear; Note: Date Diagnose d: 11/17/2019 1:33 PM (H60.311 ) ; Start Date : 11/17/19 20 Diffu se otitis externa, left ear; Note: Date Diagnose d: 12/22/2019 1:58 PM (H60.312 ) Not Available [facility] 4 02:53:47 Otorrhea of bilatera l ears 81407672697 15699 Completed 202101/17/2024 Otorrhea , bilatera l; Note: Date Diagnose d: 03/27/20 22 3:43 PM (H92.13) Not Available [facility] 4 02:53:48 Otorrhea of right ear 22954912544 73961 Active 2022 Otorrhea , right ear; Note: Date Diagnose d: 3 11:49 AM (H92.13) Not Available [facility] 4 02:53:46 Impacted cerumen in right ear 71620596668 84091 Active 2022 Impacted cerumen, right ear; Note: Date Diagnose d: 3 1:57 PM (H61.21) Not Available [facility] 4 02:53:45 Bilatera l diffuse otitis externa 07107356279 28883 Active 2023 Diffuse otitis externa, bilatera l; Note: Date Diagnose d: 11/20/2018 2:38 PM (H60.313 ) BERNICE SPEARS PA-C [address], [place], [address] , [place] - [facility] 4 15:19:29 Problem Notes None recorded. Procedures Surgical History Date Name Laterality Status Provider Name and Address Organization Details Recorded Time 5 Cerumen removal without microscope bilat completed BERNICE SPEARS PA-C [address],[place] [facility], [place], [address], [place] - [facility] 04/02/2025 12:05:25 5 Cerumen removal without microscope bilat completed BERNICE SPEARS PA-C [address],[place] [address] [place] [address], [address], [place] - [facility] 02/19/2025 11:28:11 5 Cerumen removal without microscope bilat completed BERNICE SPEARS PA-C [address], [address], [place] - [facility] 01/08/2025 11:52:42 5 Cerumen removal without microscope bilat completed BERNICE SPEARS PA-C [address],[place] [place] [address], [address], [place] - [facility] 11/26/2024 11:44:03 5 Cerumen removal without microscope bilat completed BERNICE SPEARS PA-C [address], [address], [place] - [facility] 10/15/2024 11:18:37 5 Cerumen removal without microscope bilat completed BERNICE SPEARS PA-C [address],[place] [address] [place] [address], [address], [place] - [facility] 07/22/2024 11:37:24 4 Cerumen removal without microscope bilat completed [facility]ERN[facility] SPEARS PA-C [facility],[place] [address] [place] [address], [address], [place] - [facility] 04/23/2024 11:04:35 4 Cerumen removal without microscope bilat completed BERNICE SPEARS PA-C 100 [facility],[address], [address], [facility] 03/12/2024 11:07:32 4 Cerumen removal without microscope bilat completed BERNICE SPEARS PA-C [address] [place] [address],[address], [address], [facility] 02/06/2024 15:55:18 4 Cerumen removal without microscope bilat completed BERNICE SPEARS PA-C [address] [place] [address],[address], [address], [facility] 01/02/2024 12:54:36 4 Cerumen removal without microscope bilat completed BERNICE SPEARS PA-C [address] [place] [address],[address], [address], [facility] 11/21/2023 11:16:14 Imaging Results None recorded. Procedure Notes None recorded. Medical Equipment None Reported. Allergies Allergen ID Allergen Name Allergen Category Reaction Reaction Severity Criticality Documentation Date Start Date Code Code System Note Provider Name and Address Organization Details Recorded Time [id number] penicilli n V potassium medicatio n other Not available Not available 10/29/202379992 5 RxNorm React ion: unkno wn, unspe cifie d;; Not Available [facility] 4 01:15:41 Medications Name Sig Start [...] mg tablet 09/12 completed Medicati on ID: [id number] Du ration Value: 30 Brand Name: lisinopr il Send Method: E-Prescr ibed Sub s Allowed: subs OK Speci al Instruct ion: TAKE 1 TABLET BY MOUTH EVERY DAY Medi cationGe nericNam e: lisinopr il Not Available Not Available Not Available Ciloxan 0.3 % eye drops 03/08 completed Medicati on ID: [id number] Pr escribed By Name: NUBIA Sweet nd Name: Ciloxan Send Method: E-Prescr ibed Sub s Allowed: subs OK Geno al Instruct ion: Instill 4 drops twice [...] mcg tablet 02/19 completed Medicati on ID: [id number] B rand Name: levothyr oxine Se nd Method: E-Prescr ibed Sub s Allowed: subs OK Medic ationGen ericName : levothyr oxine Not Available Not Available Not Available sulfaceta mide sodium 10 % eye drops 02/19 completed Medicati on ID: [id number] D uration Value: 14 Brand Name: sulfacet amide sodium S end Method: E-Prescr ibed Sub s Allowed: subs OK Speci al Instruct ion: 4 drops to affected ear BID x 14 days Med icationG enericNa me: sulfacet amide sodium Not Available Not Available Not Available levothyro xine 50 mcg tablet 11/19 completed Medicati on ID: [id number] Du ration Value: 30 Reason: () Brand [...] mg tablet 09/12 completed Medicati on ID: [id number] D uration Value: 30 Brand Name: simvasta [...] a day 02/19 completed Medicati on ID: [id number] D uration Value: 14 Brand Name: clotrima [...] a day 02/19 completed Medicati on ID: [id number] D uration Value: 14 Brand Name: Ciprodex [...] Updated DateTime 10/15/2024 144.78 cm 27 kg/m2 15912.05 g Kelley León [place] - [facility] 10/15/2024 11:13:09 Date Recorded Body height Body mass index (BMI) Body weight Provider Name and Address Organization Details Last Updated DateTime 11/26/2024 144.78 cm 27 kg/m2 31501.05 g My Bonilla [place] - [facility] 11/26/2024 11:17:05 Date Recorded Body height Provider Name an d Address Organization Details Last Updated DateTime 01/08/2025 144.78 cm Meera Mims [place] - [facility] 01/08/2025 11:22:21 Date Recorded Body height Body mass index (BMI) Body weight Provider Name and Address Organization Details Last Updated DateTime 04/02/2025 144.78 cm 27 kg/m2 66304.05 g Emilymatilde Mendoza [place] - [facility] 04/02/2025 11:32:26 Social History None recorded. Functional [...] ICD10 Code Diagnosis IMO Codes Diagnosis Note [id number] BERNICE SPEARS PA-C [facility] [address] [address] 11/21/2023 11:07:48 11/21/2023 11:40:06 Impacted cerumen of bilateral ears 1203584415 729363 H61.23 8458 BERNICE SPEARS PA-C [facility] [address] [address] 01/02/2024 11:03:40 01/02/2024 11:36:55 Bilateral diffuse otitis externa 3766327052 413504 H60.313 Impacted c erumen of bilateral ears 5421557265 414321 H61.23 [id number] BERNICE SPEARS PA-C [facility] [address] [address] 02/06/2024 14:53:34 02/06/2024 15:32:25 Bilateral diffuse otitis externa 5309309373 726821 H60.313 Impacted c erumen of bilateral ears 2123120330 275778 H61.23 [id number] BERNICE SPEARS PA-C [facility] [address] [address] 03/12/2024 11:06:52 03/12/2024 11:56:11 Impacted cerumen of bilateral ears 9103086323 708965 H61.23 Bilateral diffuse otitis externa 2599255729 609993 H60.313 64050 BERNICE SPEARS PA-C [facility] [address] [place] [address] 04/23/2024 10:17:05 04/23/2024 10:54:32 Impacted cerumen of bilateral ears 9434285394 329414 H61.23 [id number] BERNICE SPEARS PA-C [facility] [address] [address] 07/22/2024 11:25:27 07/22/2024 11:52:20 Impacted cerumen of bilateral ears 9747617183 888949 H61.23 [id number] BERNICE SPEARS PA-C [facility] [address] [address] 10/15/2024 11:08:13 10/15/2024 11:33:37 Impacted cerumen of bilateral ears 5608520891 082916 H61.23 60702 BERNICE SPEARS PA-C [facility] [address] [address] 11/26/2024 11:10:33 11/26/2024 11:44:36 Impacted cerumen of bilateral ears 7862906725 749392 H61.23 [id number] BERNICE SPEARS PA-C [facility] [address] [address] 01/08/2025 10:50:39 01/08/2025 11:32:43 Impacted cerumen of bilateral ears 9722376102 335102 H61.23 [id number] BERNICE SPEARS PA-C [facility] [address] [address] 02/19/2025 10:57:31 02/19/2025 11:27:11 Impacted cerumen of bilateral ears 7171015332 248226 H61.23 [id number] BERNICE SPEARS PA-C [facility] [address] [place] [address] 04/02/2025 11:18:16 04/02/2025 11:57:55 Impacted cerumen of bilateral ears 7213777427 802888 H61.23 Health Concerns Section Related Observation LastModified by Organization Detai ls LastModified Time None Recorded Concern Status LastModified by Organization Details LastModified Time None Recorded Advance Directives Directive None Recorded Payers Insurance Date Sequence Insurance Name Policy Number Policy Martinez Covered Member ID Martinez Member ID Guarantor Name 04/26/2025 2 [place] [facility] Thais Kincaid [id number] Thais Silva Snajiv 04/26/2025 1 [place] B[place] [employer] Thais Kincaid [id number] Thais Silva Sanjiv Notes Date Note Type Note Provider Name and Address Organization Details Recorded Time 10/15/2024 text/html ROS as noted in the [facility] 49-year-old female with history of chronic OE, recurrent cerumen impactions, and hearing loss using amplification presents for routine ear cleaning. Denies otalgia and otorrhea. Accompanied by mom. JAKE GRANADOS MD [address] [place] [address], [phone], [facility] - [facility] 10/15/2024 17:30:35 11/26/2024 text/html ROS as noted in the [facility] 49-year-old female with history of chronic OE, recurrent cerumen impactions, and hearing loss using amplification presents for routine ear cleaning. Denies otalgia and otorrhea. Accompanied by mom. MIGUEL BRITT MD [address] [place] [address], [phone], [facility] 11/26/2024 22:13:29 01/08/2025 text/html ROS as noted in the [facility] 49-year-old female with history of chronic OE, recurrent cerumen impactions, and hearing loss using amplification presents for routine ear cleaning. Denies otalgia and otorrhea. Accompanied by mom. HIREN WARE MD [address] [place] [address], [phone], [facility] - [facility] 01/08/2025 21:21:43 02/19/2025 text/html ROS as noted in the [facility] 50-year-old female with history of chronic OE, recurrent cerumen impactions, and hearing loss using amplification presents for routine ear cleaning. No concerns today. Accompanied by mom. HIREN WARE MD [address] [place] [address], [address], [facility] 02/19/2025 11:40:59 04/02/2025 text/html ROS as noted in the [facility] 50-year-old female with history of chronic OE, recurrent cerumen impactions, and hearing loss using amplification presents for routine ear cleaning. No concerns today. Accompanied by mom. OLEG NINO MD [address] [place] [address], [phone], [facility] 04/02/2025 12:39:54 OBGyn Episode No OBEpisode recorded.
--- OUTSIDE RECORDS SUMMARY | 2025-04-28 17:51 | XMS_ITS | Encounter Summary ---
Author Organization [facility] Address [address] [place] [address] Care Team Providers Care Infrastructure Manager Name Role Phone Mechelle Ortega MD Primary Care Provider [phone] Encounter Details Date Type Department Care Team ([facility] st Contact Info) Description 04/15/2025 Telephone [facility] [address] [facility] [address] [place] [address] Deshaun Esqueda MD [address] [place] [address] [place] [address] Social History Tobacco Use Types Packs/Day Years [...] as of this encounter Progress Notes * Gamaliel Nicholas RN - 04/15/2025 2:32 PM EDT Janny calling back this PM. States pt had right knee sx on 03/30 and has already had a f/u on 04/08. States everything looked good and PA has no concerns. Has some swelling in right operative ankle/lower leg/foot. Has no other HF s/s including PND, orthopnea, worsening SOB, weight gain. Taking all meds as prescribed. Is aware for any developing HF s/s to call the office back. * Gamaliel Nicholas RN - 04/15/2025 10:39 AM EDT Had right knee bursectomy sx with Dr. Weber at [facility]. LV for Janny, pt's mother to call back. * Trena Ortiz MA - 04/15/2025 10:23 AM EDT Heart failure diagnostics available in this device are suggestive of volume overload. Please phone patient to assess for symptoms of heart failure exacerbation: Weight gain, orthopnea, PND, increasedexertional dyspnea, recent clinical events, dietary indiscretion. Please convey this information to the primary cardiology team or go to as appropriate. documented in this encounter Plan of Treatment Upcoming Encounters Date Type Department Care Team (Late st Contact Info) Description 06/28/2025 11:10 AM EST Office Visit [facility] - [address] [place] [address] Antoni Dodson NP [address] [place] [address] Dr Kapoor [address] [place] [address] 07/12/2025 1:00 PM EST Ancillary Procedure [facility] [address] [place] [address] documented as of this encounter Visit Diagnoses Not on filedocumented in this encounter Care Teams Infrastructure Manager Relationship Specialty Start Date End Date Mechelle Ortega MD [address] [facility] [address] [place] [address] PCP - General Internal Medicine 04/30/24 documented as of this encounter
--- OUTSIDE RECORDS SUMMARY | 2025-04-28 17:51 | XMS_ITS | Continuity of Care Document ---
Author Organization [place] - [facility], [facility] Address [address] [place] [address] Care Team Providers Care Chopped Strand Operator Name Role Phone SAMI THOMASON Primary Care Provider [phone] Assessment Encounter Date Assessment Date Assessment LastModified by Organization Details LastModified Time 02/19/2025 02/19/2025 50-year-old female with history of chronic OE, recurrent cerumen impactions, and hearing loss using amplification presents for routine ear cleaning. Cerumen impaction removed bilaterally. Otologic exam is stable. She will follow-up in 6 weeks for routine debridement, or sooner with any worsening symptoms. [email or web address] Not available 02/19/2025 11:28:38 Plan of Treatment Reminders Order Date Submit Date Provider Last Modified By Organization Details Last Modified Time Details Appointments Establish ed 15 2024 11:15A Ricardo SPEARS PA-C Not available Not available [...] Address Organization Details Recorded Time Impacted cerumen 63760235 Active 2014 Impacted cerumen; CMS Risk: low risk CMS Treatmen t: new problem (to examiner ): no addition al workup planned Not Available [facility] 4 02:53:45 Impacted cerumen of bilatera l ears [id number] 56231 Active 2014 Impacted cerumen, bilatera l; Note: Date Diagnose d: 5 2:31 PM (H61.23) [mapped from ICD9 code: 380.4] Not Available [facility] 4 02:53:46 Chronic mycotic otitis externa 065283414 Active 2014 Chronic mycotic otitis externa; Note: Date Diagnose d: 5 2:29 PM (380.15) Not Available [facility] 4 02:53:43 Mixed conducti ve and sensorin eural hearing loss, bilatera l 209717337 Active 2014 Mixed hearing loss, bilatera l; Note: Date Diagnose d: 5 12:14 PM (389.22) Mixed conducti ve and sensorin eural hearing loss, bilatera l; Note: Date Diagnose d: 5 12:14 PM (H90.6) [mapped from ICD9 code: 389.22] Not Available [facility] 4 02:53:46 Candidal otitis externa 81796587 Active 2014 Candidia sis: Candidal otitis externa; Note: Date Diagnose d: 5 12:14 PM (112.82) [mapped from ICD9 code: 389.22] Candid al otitis externa; Note: Date Diagnose d: 5 12:15 PM (B37.84) [mapped from ICD9 code: 112.82] Not Available [facility] 4 02:53:44 Bilatera l diffuse otitis externa [id number] 95166 Completed 201801/17/2024 Diffuse otitis externa, bilatera l; Note: Date Diagnose d: 11/20/2018 2:38 PM (H60.313 ) BERNICE SPEARS PA-C [address] [place] [address], [place], [address] , [facility] - [facility] 4 15:19:29 Sensorin eural hearing loss in right ear 57053002692 100 Active 2018 Sensorin eural hearing loss, unilater al, right ear, with restrict ed hearing on the contrala teral side; Note: Date Diagnose d: 9 4:51 PM (H90.A21 ) Not Available [facility] 4 02:53:45 Mixed conducti ve and sensorin eural hearing loss of left ear 78415540239 107 Active 2018 Mixed conducti ve and sensorin eural hearing loss, unilater al, left ear with restrict ed hearing on the contrala teral side; Note: Date Diagnose d: 9 4:51 PM (H90.A32 ) Not Available [facility] 4 02:53:47 Impacted cerumen in left ear 70140483365 46307 Active 2019 Impacted cerumen, left ear; Note: Date Diagnose d: 11/17/2019 1:33 PM (H61.22) Not Available [facility] 4 02:53:44 Diffuse otitis externa 11497047 Active 2019 Diffuse otitis externa, right ear; Note: Date Diagnose d: 11/17/2019 1:33 PM (H60.311 ) ; Start Date : 11/17/19 20 Diffu se otitis externa, left ear; Note: Date Diagnose d: 12/22/2019 1:58 PM (H60.312 ) Not Available [facility] 4 02:53:47 Otorrhea of bilatera l ears [id number] 70256 Completed 202101/17/2024 Otorrhea , bilatera l; Note: Date Diagnose d: 03/27/20 22 3:43 PM (H92.13) Not Available [facility] 4 02:53:48 Otorrhea of right ear 21625853145 72043 Active 2022 Otorrhea , right ear; Note: Date Diagnose d: 3 11:49 AM (H92.13) Not Available [facility] 4 02:53:46 Impacted cerumen in right ear 75113503570 16015 Active 2022 Impacted cerumen, right ear; Note: Date Diagnose d: 3 1:57 PM (H61.21) Not Available [facility] 4 02:53:45 Bilatera l diffuse otitis externa 76631696430 18167 Active 2023 Diffuse otitis externa, bilatera l; Note: Date Diagnose d: 11/20/2018 2:38 PM (H60.313 ) BERNICE SPEARS PA-C [address] [facility] [place], [address] , [place] - [facility] 4 15:19:29 Problem Notes None recorded. Procedures Surgical History Date Name Laterality Status Provider Name and Address Organization Details Recorded Time 5 Cerumen removal without microscope bilat completed NUBIA MOULTON [facility],[address], [address], [place] - [facility] 04/02/2025 12:05:25 5 Cerumen removal without microscope bilat completed BERNICE SPEARS PA-C [address] [place] [address],[address], [address], [facility] - [facility] 02/19/2025 11:28:11 5 Cerumen removal without microscope bilat completed BERNICE SPEARS PA-C [address] [facility],[address], [address], [place] - [facility] 01/08/2025 11:52:42 5 Cerumen removal without microscope bilat completed BERNICE SPEARS PA-C [address] [facility],[address], [address], [facility] - [facility] 11/26/2024 11:44:03 5 Cerumen removal without microscope bilat completed BERNICE SPEARS PA-C [address] [facility],[address], [address], [place] - [facility] 10/15/2024 11:18:37 5 Cerumen removal without microscope bilat completed BRENICE SPEARS PA-C [address] [place] [address],[address], [address], [facility] - [facility] 07/22/2024 11:37:24 4 Cerumen removal without microscope bilat completed BERNICE SPEARS PA-C [address] [place] [address],[address], [address], [facility] - [facility] 04/23/2024 11:04:35 4 Cerumen removal without microscope bilat completed BERNICE SPEARS PA-C [address] [place] [address],[address], [address], [facility] - [facility] 03/12/2024 11:07:32 4 Cerumen removal without microscope bilat completed BERNICE SPEARS PA-C [address] [place] [address],[address], [address], [facility] - [facility] 02/06/2024 15:55:18 4 Cerumen removal without microscope bilat completed BERNICE SPEARS PA-C [address] [place] [address],[address], [address], [facility] - [facility] 01/02/2024 12:54:36 4 Cerumen removal without microscope bilat completed BERNICE SPEARS PA-C [address] [place] [address], [address], [facility] - [facility] 11/21/2023 11:16:14 Imaging Results None recorded. Procedure Notes None recorded. Medical Equipment None Reported. Allergies Allergen ID Allergen Name Allergen Category Reaction Reaction Severity Criticality Documentation Date Start Date Code Code System Note Provider Name and Address Organization Details Recorded Time [id number] penicilli n V potassium medicatio n other Not available Not available 10/29/2023 5 RxNorm React ion: unkno wn, unspe cifie d;; Not Available [facility] 4 01:15:41 Medications Name Sig Start Date [...] mg tablet 09/12 completed Medicati on ID: [id number] Du ration Value: 30 Brand Name: lisinopr il Send Method: E-Prescr ibed Sub s Allowed: subs OK Speci al Instruct ion: TAKE 1 TABLET BY MOUTH EVERY DAY Medi cationGe nericNam e: lisinopr il Not Available Not Available Not Available Ciloxan 0.3 % eye drops 03/08 completed Medicati on ID: [id number] Pr escribed By Name: NUBIA Sweet nd [...] mcg tablet 02/19 completed Medicati on ID: [id number] B rand Name: levothyr oxine Se nd Method: E-Prescr ibed Sub s Allowed: subs OK Medic ationGen ericName : levothyr oxine Not Available Not Available Not Available sulfaceta mide sodium 10 % eye drops 02/19 completed Medicati on ID: [id number] D uration Value: 14 Brand Name: sulfacet amide sodium S end Method: E-Prescr ibed Sub s Allowed: subs OK Speci al Instruct ion: 4 drops to affected ear BID x 14 days Med icationG enericNa me: sulfacet amide sodium Not Available Not Available Not Available levothyro xine 50 mcg tablet 11/19 completed Medicati on ID: [id number] Du ration Value: 30 Reason: () Brand [...] mg tablet 09/12 completed Medicati on ID: [id number] D uration Value: 30 Brand Name: simvasta [...] a day 02/19 completed Medicati on ID: [id number] D uration Value: 14 Brand Name: clotrima [...] a day 02/19 completed Medicati on ID: [id number] D uration Value: 14 Brand Name: Ciprodex Send Method: E-Prescr ibed Sub s Allowed: subs OK [facility] Ciprodex Not Available Not Available [...] ICD10 Code Diagnosis IMO Codes Diagnosis Note [id number] BERNICE SPEARS PA-C [facility] [address] [address] 02/19/2025 10:57:31 02/19/2025 11:27:11 Impacted cerumen of bilateral ears [id number] 519680 H61.23 Health Concerns Section Related Observation LastModified by Organization Detai ls LastModified Time None Recorded Concern Status LastModified by Organization Details LastModified Time None Recorded Payers Encounter Date Sequence Insurance Name Policy Number Policy Martinez Covered Member ID Martinez Member ID Guarantor Name 02/19/2025 2 [place]ais Kincaid [id number] Thais Kincaid 02/19/2025 1 MEDICARE [place] [employer] Thais Kincaid [id number] Thais Kincaid Notes Date Note Type Note Provider Name and Address Organization Details Recorded Time 02/19/2025 text/html ROS as noted in the HPI 50-year-old female with history of chronic OE, recurrent cerumen impactions, and hearing loss using amplification presents for routine ear cleaning. No concerns today. Accompanied by mom. HIREN WARE MD [address], [address], [place] - [facility] 02/19/2025 11:40:59 OBGyn Episode No OBEpisode recorded.
== END 2025-04-28 14:23 | disposition home or self-care (01) ==
LOC: HO.HAP 14:22
PROVIDERS: PCP Internal Medicine; Visit Provider Internal Medicine
DX: Z46.1 Encounter for fitting and adjustment of hearing aid (principal); H90.3 Sensorineural hearing loss, bilateral
CPT/HCPCS: 92593; 99499; V5266

== ENCOUNTER 2025-05-26 10:53 | Outpatient (REF) | payer MEDICARE, MEDICAID, SELFPAY | END 2025-05-26 10:54 | disposition home or self-care (01) | LOC: HO.HAP 10:53 | PROVIDERS: Visit Provider Internal Medicine | DX: H90.3 Sensorineural hearing loss, bilateral (principal); Z46.1 Encounter for fitting and adjustment of hearing aid | CPT/HCPCS: 92593; 99499 ==